=== PATIENT | male | born 1980 ===

== ENCOUNTER 2021-07-04 01:00 | Inpatient (IN) | payer OTHER, SELFPAY ==
[2021-07-04] MEDS ORDERED: IPRATROPIUM/ALBUTEROL SULFATE 3 ML AMPUL.NEB IH ONE (02:34)
[2021-07-04] MEDS ORDERED: SODIUM CHLORIDE 0.9% 1000 ML 1,000 ML IV ONE ×2 (02:34→02:35)
[2021-07-04] MEDS ORDERED: dexAMETHasone 20 MG/5 ML VIAL IV ONE ×2 (02:35→05:00)
--- NOTE | 2021-07-04 02:38 | Event Note ---
ED Screening Note Date of service: 07/04/21 Time: 02:35 ED Screening Note: Patient is a 40-year-old male with no past medical history and who was recently diagnosed with COVID-19 viral infection a week ago presents to the ED with complaint of acute onset persistent shortness of breath on exertion, persistent dry cough, intermittent fever of up to 103 F, chills, lack of appetite, body aches and pains, and generalized fatigue and weakness for the last 1 week. Patient states that in the last 2 days his shortness of breath is worsened such that even with walking from his bed to the toilet worsen his symptoms. Patient states that his own 20-year-old daughter has been admitted to this hospital in the last few days with COVID-19 viral infection. Patient denies dizziness, syncope, seizures, abdominal pain, nausea, vomiting, diarrhea,, dysuria, urinary frequency and urgency, dysuria, testicular pain or hematuria. This initial assessment/diagnostic orders/clinical plan/treatment(s) is/are subject to change based on patients health status, clinical progression and re-assessment by fellow clinical providers in the ED. Further treatment and workup at subsequent clinical providers discretion. Patient/guardian urged not to elope from the ED as their condition may be serious if not clinically assessed and managed. Initial orders include: CBC, CMP, blood cultures, lactic acid, chest x-ray,
[2021-07-04 03:23] LABS: Basophils # (Auto) 0.1 K/mm3 (0.0-0.1); Basophils % (Auto) 0.5 % (0.0-1.8); Hematocrit 41.2 % (35.5-45.6); Hemoglobin 14.5 gm/dl (11.8-15.2); Lymphocytes # (Auto) 0.8 K/mm3 (1.2-5.4); Mean Corpuscular HGB Conc 35 % (32-34); Mean Corpuscular Volume 91 fl (84-94); Monocytes # (Auto) 0.5 K/mm3 (0.0-0.8); Monocytes % (Auto) 5.1 % (0.0-7.3); Platelet Count 253 K/mm3 (140-440); Red Blood Count 4.54 M/mm3 (3.65-5.03); Red Cell Distribution Width 13.1 % (13.2-15.2)
[2021-07-04] MEDS ORDERED: SODIUM CHLORIDE 0.9% 500 ML 500 ML IV NR (03:26)
--- NOTE | 2021-07-04 03:28 | Emergency Department Report ---
ED General Adult HPI - General Chief complaint: Upper Respiratory Infection Stated complaint: FEVER/SOB PUI?: Yes Time Seen by Provider: 07/04/21 03:01 Source: patient, RN notes reviewed Mode of arrival: Ambulatory Limitations: Physical Limitation - History of Present Illness Initial comments: The patient was evaluated in the emergency department for symptoms described in the history of present illness. He/she was evaluated in the context of the global COVID-19 pandemic, which necessitated consideration that the patient gatito ht be at risk for infection with the virus that causes COVID-19. Institutional protocols and algorithms that pertain to the evaluation of patients at risk for COVID-19 are in a state of rapid change based on information released by regulatory bodies including the CDC and federal and state organizations. These policies and algorithms were followed during the patient's care in the emergency department. Please note that these policies, procedures and recommendations changed on a rapid basis. During the entire history and physical examination, I had on complete personal protective equipment. The patient is a 40-year-old gentleman, who denies significant past medical history, reports positive outpatient Covid test within the past week, not vaccinated against COVID-19, who presents to the ER on day 7/8 of typical Covid symptoms. He complains of headache, shortness of breath, chest tightness, diarrhea, weakness, malaise, fatigue, loss of taste and smell. -: Gradual, days(s) Location: head, chest, back, left, right, upper extremity, lower extremity Quality: aching Consistency: constant Improves with: none Worsens with: movement - Related Data Allergies Allergy/AdvReac Type Severity Reaction Status Date / Time No Known Allergies Allergy Verified 07/04/21 05:06 ED Review of Systems ROS: Stated complaint: FEVER/SOB Other details as noted in HPI Constitutional: fever, malaise, weakness Eyes: denies: eye discharge ENT: congestion Respiratory: cough, shortness of breath Cardiovascular: denies: syncope Gastrointestinal: diarrhea. denies: abdominal pain Genitourinary: denies: dysuria Musculoskeletal: arthralgia, myalgia Neurological: headache, weakness Hematological/Lymphatic: denies: easy bleeding ED Physical Exam - General Limitations: Physical Limitation General appearance: alert, anxious - Head Head exam: Present: atraumatic, normocephalic - Eye Eye exam: Present: normal appearance, EOMI. Absent: nystagmus - ENT ENT exam: Present: normal exam, normal orophraynx, mucous membranes moist, normal external ear exam - Neck Neck exam: Present: normal inspection, full ROM. Absent: tenderness, meningismus - Respiratory Respiratory exam: Present: respiratory distress, accessory muscle use, other (Pulmonary auscultation not performed secondary to lack of disposable stethoscope). Absent: stridor - Cardiovascular Cardiovascular Exam: Present: tachycardia (Appreciated on pulse examination), other (Cardiac auscultation not performed secondary to lack of disposable stethoscope) - GI/Abdominal GI/Abdominal exam: Present: soft. Absent: distended, tenderness, guarding, rebound, rigid, pulsatile mass - Rectal Rectal exam: Present: deferred - Extremities Exam Extremities exam: Present: normal inspection, full ROM, other (2+ pulses noted in the bilateral upper and lower extremities. There is no palpable cord. negative Homans sign. Muscular compartments are soft. The pelvis is stable.). Absent: pedal edema, calf tenderness - Back Exam Back exam: Present: normal inspection, full ROM. Absent: tenderness, CVA tenderness (R), CVA tenderness (L), paraspinal tenderness, vertebral tenderness - Neurological Exam Neurological exam: Present: alert, oriented X3, other (No facial droop. Tongue midline. Extraocular movements intact bilaterally. Facial sensation intact to light touch in V1, V2, V3 distribution bilaterally. 5 and a 5 strength in 4 extremities. Sensation intact to light touch in 4 extremities.). Absent: motor sensory deficit - Psychiatric Psychiatric exam: Present: anxious - Skin Skin exam: Present: warm, dry, intact, normal color. Absent: rash ED Course Vital Signs 07/04/21 07/04/21 02:25 05:15 Temperature 103.2 F H Pulse Rate 124 H 114 H Respiratory 18 26 H Rate Blood Pressure 117/75 124/84 O2 Sat by Pulse 85 94 Oximetry ED Medical Decision Making - Lab Data Result diagrams: 07/04/21 03:02 07/04/21 03:33 Vital Signs 07/04/21 02:25 Temperature 103.2 F H Pulse Rate 124 H Respiratory 18 Rate Blood Pressure 117/75 O2 Sat by Pulse 85 Oximetry Lab Results 07/04/21 07/04/21 Range/Units 03:01 03:02 WBC 10.6 (4.5-11.0) K/mm3 RBC 4.54 (3.65-5.03) M/mm3 Hgb 14.5 (11.8-15.2) gm/dl Hct 41.2 (35.5-45.6) % MCV 91 (84-94) fl MCH 32 (28-32) pg MCHC 35 H (32-34) % RDW 13.1 L (13.2-15.2) % Plt Count 253 (140-440) K/mm3 Lymph % (Auto) 8.0 L (13.4-35.0) % [place] % (Auto) 5.1 (0.0-7.3) % Eos % (Auto) 0.0 (0.0-4.3) % Baso % (Auto) 0.5 (0.0-1.8) % Lymph # (Auto) 0.8 L (1.2-5.4) K/mm3 [place] # (Auto) 0.5 (0.0-0.8) K/mm3 Eos # (Auto) 0.0 (0.0-0.4) K/mm3 Baso # (Auto) 0.1 (0.0-0.1) K/mm3 Seg Neutrophils % 86.4 H (40.0-70.0) % Seg Neutrophils # 9.1 H (1.8-7.7) K/mm3 Lactic Acid 1.70 (0.7-2.0) mmol/L Lab Results 07/04/21 07/04/21 07/04/21 Range/Units 03:01 03:01 03:02 WBC 10.6 (4.5-11.0) K/mm3 RBC 4.54 (3.65-5.03) M/mm3 Hgb 14.5 (11.8-15.2) gm/dl Hct 41.2 (35.5-45.6) % MCV 91 (84-94) fl MCH 32 (28-32) pg MCHC 35 H (32-34) % RDW 13.1 L (13.2-15.2) % Plt Count 253 (140-440) K/mm3 Lymph % (Auto) 8.0 L (13.4-35.0) % [place] % (Auto) 5.1 (0.0-7.3) % Eos % (Auto) 0.0 (0.0-4.3) % Baso % (Auto) 0.5 (0.0-1.8) % Lymph # (Auto) 0.8 L (1.2-5.4) K/mm3 [place] # (Auto) 0.5 (0.0-0.8) K/mm3 Eos # (Auto) 0.0 (0.0-0.4) K/mm3 Baso # (Auto) 0.1 (0.0-0.1) K/mm3 Seg Neutrophils % 86.4 H (40.0-70.0) % Seg Neutrophils # 9.1 H (1.8-7.7) K/mm3 Sodium 134 L (137-145) mmol/L Potassium 3.3 L (3.6-5.0) mmol/L Chloride 94.9 L (98-107) mmol/L Carbon Dioxide 24 (22-30) mmol/L Anion Gap 18 mmol/L BUN 16 (9-20) mg/dL Creatinine 1.1 (0.8-1.3) mg/dL Estimated GFR > 60 ml/min BUN/Creatinine Ratio 15 % Glucose 167 H (75-100) mg/dL Lactic Acid 1.70 (0.7-2.0) mmol/L Calcium 8.6 (8.4-10.2) mg/dL Total Bilirubin 0.70 (0.1-1.2) mg/dL AST 70 H (5-40) units/L ALT 54 (7-56) units/L Alkaline Phosphatase 73 (35-129) units/L Total Protein 7.7 (6.3-8.2) g/dL Albumin 3.6 L (3.9-5) g/dL Albumin/Globulin Ratio 0.9 % Lab Results 07/04/21 07/04/21 07/04/21 Range/Units 03:01 03:01 03:02 WBC 10.6 (4.5-11.0) K/mm3 RBC 4.54 (3.65-5.03) M/mm3 Hgb 14.5 (11.8-15.2) gm/dl Hct 41.2 (35.5-45.6) % MCV 91 (84-94) fl MCH 32 (28-32) pg MCHC 35 H (32-34) % RDW 13.1 L (13.2-15.2) % Plt Count 253 (140-440) K/mm3 Lymph % (Auto) 8.0 L (13.4-35.0) % [place] % (Auto) 5.1 (0.0-7.3) % Eos % (Auto) 0.0 (0.0-4.3) % Baso % (Auto) 0.5 (0.0-1.8) % Lymph # (Auto) 0.8 L (1.2-5.4) K/mm3 [place] # (Auto) 0.5 (0.0-0.8) K/mm3 Eos # (Auto) 0.0 (0.0-0.4) K/mm3 Baso # (Auto) 0.1 (0.0-0.1) K/mm3 Seg Neutrophils % 86.4 H (40.0-70.0) % Seg Neutrophils # 9.1 H (1.8-7.7) K/mm3 D-Dimer (0-234) ng/mlDDU Sodium 134 L (137-145) mmol/L Potassium 3.3 L (3.6-5.0) mmol/L Chloride 94.9 L (98-107) mmol/L Carbon Dioxide 24 (22-30) mmol/L Anion Gap 18 mmol/L BUN 16 (9-20) mg/dL Creatinine 1.1 (0.8-1.3) mg/dL Estimated GFR > 60 ml/min BUN/Creatinine Ratio 15 % Glucose 167 H (75-100) mg/dL Lactic Acid 1.70 (0.7-2.0) mmol/L Calcium 8.6 (8.4-10.2) mg/dL Ferritin (30.0-300.0) ng/mL Total Bilirubin 0.70 (0.1-1.2) mg/dL AST 70 H (5-40) units/L ALT 54 (7-56) units/L Alkaline Phosphatase 73 (35-129) units/L Lactate Dehydrogenase (91-180) units/L Total Creatine Kinase (55-170) units/L Troponin T (0.00-0.029) ng/mL C-Reactive Protein (0.00-1.30) mg/dL Total Protein 7.7 (6.3-8.2) g/dL Albumin 3.6 L (3.9-5) g/dL Albumin/Globulin Ratio 0.9 % 07/04/21 07/04/21 07/04/21 Range/Units 03:33 03:33 03:33 WBC (4.5-11.0) K/mm3 RBC (3.65-5.03) M/mm3 Hgb (11.8-15.2) gm/dl Hct (35.5-45.6) % MCV (84-94) fl MCH (28-32) pg MCHC (32-34) % RDW (13.2-15.2) % Plt Count (140-440) K/mm3 Lymph % (Auto) (13.4-35.0) % [place] % (Auto) (0.0-7.3) % Eos % (Auto) (0.0-4.3) % Baso % (Auto) (0.0-1.8) % Lymph # (Auto) (1.2-5.4) K/mm3 [place] # (Auto) (0.0-0.8) K/mm3 Eos # (Auto) (0.0-0.4) K/mm3 Baso # (Auto) (0.0-0.1) K/mm3 Seg Neutrophils % (40.0-70.0) % Seg Neutrophils # (1.8-7.7) K/mm3 D-Dimer 786.71 H (0-234) ng/mlDDU Sodium (137-145) mmol/L Potassium (3.6-5.0) mmol/L Chloride (98-107) mmol/L Carbon Dioxide (22-30) mmol/L Anion Gap mmol/L BUN (9-20) mg/dL Creatinine (0.8-1.3) mg/dL Estimated GFR ml/min BUN/Creatinine Ratio % Glucose 156 H (75-100) mg/dL Lactic Acid (0.7-2.0) mmol/L Calcium (8.4-10.2) mg/dL Ferritin 2452.0 H (30.0-300.0) ng/mL Total Bilirubin (0.1-1.2) mg/dL AST (5-40) units/L ALT (7-56) units/L Alkaline Phosphatase (35-129) units/L Lactate Dehydrogenase 759 H (91-180) units/L Total Creatine Kinase 194 H (55-170) units/L Troponin T < 0.010 (0.00-0.029) ng/mL C-Reactive Protein 24.40 H (0.00-1.30) mg/dL Total Protein (6.3-8.2) g/dL Albumin (3.9-5) g/dL Albumin/Globulin Ratio % - EKG Data -: EKG Interpreted by Sc EKG shows normal: sinus rhythm Rate: tachycardia - EKG Data 07/04/21 04:11 The EKG is interpreted at 04: 04 Sinus rhythm, tachycardia, rate 119 bpm. Normal axis. Normal P wave axis. High left ventricular voltage. QTC within normal limits. This is an abnormal EKG. This is not a STEMI. - Radiology Data Radiology results: pending, report reviewed, image reviewed [facility] [address] [place] [address] XRay Report Signed Patient: STORM WEBB MR#: [id number] : 1980 Acct:[id number] Age/Sex: 40 / M ADM Date: 07/04/21 Loc: ED Attending Dr: Ordering Physician: BIBIANA BURKS Date of Service: 07/04/21 Procedure(s): XR chest routine 2V Accession Number(s): [id number] cc: BIBIANA BURKS Fluoro Time In Minutes: CHEST 2 VIEWS INDICATION / CLINICAL INFORMATION: dyspnea, cough, Covid positive, chest pain STUDY TIME: 0311 COMPARISON: None available. FINDINGS: SUPPORT DEVICES: None. HEART / MEDIASTINUM: No significant abnormality. LUNGS / PLEURA: Moderate patchy bilateral interstitial infiltrates suggesting patchy bilateral pneumonitis. No pleural effusions are seen. No pneumothorax. ADDITIONAL FINDINGS: No significant additional findings. Signer Name: Beni Longo MD Signed: 07/04/2021 3:28 AM Workstation Name: [id number] Transcribed By: GJ Dictated By: Beni Longo MD Electronically Authenticated By: Beni Longo MD Signed Date/Time: 07/04/21327 DD/ 6 - Medical Decision Making Differential diagnosis, including but not limited to: COVID-19, hypoxic respiratory failure, Covid vaccination series not completed Assessment and plan: 40-year-old gentleman, with known history of COVID-19, presenting with systemic inflammatory response syndrome, and acute hypoxic respiratory failure. This patient meets criteria for admission hospitalization secondary to acute hypoxic respiratory failure. Place patient on isolation, supplemental oxygen, and start steroids. Cover empirically with antibiotics, and order appropriate inpatient and Covid laboratory studies. Start 500 cc of normal saline, we appreciate that the patient rules in for systemic inflammatory response syndrome. Given propensity for Covid patients to develop acute respiratory distress syndrome with aggressive fluid resuscitation, we will not administer 30 cc/kg bolus of IV fluid. Discussed recommendation with patient for plan to admit him to the medical service. He is agreeable to admission. All questions answered. Hospital physician, Dr. Obando to admit to [facility] Critical Care Time: Yes Critical care time in (mins) excluding proc time.: 35 Critical care attestation.: If time is entered above; I have spent that time in minutes in the direct care o f this critically ill patient, excluding procedure time. ED Disposition Clinical Impression: Acute respiratory failure with hypoxia, Systemic inflammatory response syndrome (SIRS), COVID-19, COVID-19 vaccination not done Disposition: ADMITTED INPATIENT Is pt being admited?: Yes Does the pt Need Aspirin: No Condition: Fair
--- NOTE | 2021-07-04 03:32 | XRay Report ---
CHEST 2 VIEWS INDICATION / CLINICAL INFORMATION: dyspnea, cough, Covid positive, chest pain STUDY TIME: 031 COMPARISON: None available. FINDINGS: SUPPORT DEVICES: None. HEART / MEDIASTINUM: No significant abnormality. LUNGS / PLEURA: Moderate patchy bilateral interstitial infiltrates suggesting patchy bilateral pneumo nitis. No pleural effusions are seen. No pneumothorax. ADDITIONAL FINDINGS: No significant additional findings. Signer Name: Beni Longo MD Signed: 07/04/2021 3:28 AM Workstation Name: [id number]
[2021-07-04 03:56] LABS: Alanine Aminotransferase 54 units/L (7-56); Albumin 3.6 g/dL (3.9-5); BUN/Creatinine Ratio 15; Blood Urea Nitrogen 16 mg/dL (9-20); Calcium 8.6 mg/dL (8.4-10.2); Hemolysis Index 1
[2021-07-04] MEDS ORDERED: POTASSIUM CHLORIDE ER 20 MEQ TAB PO NR (03:59)
--- NOTE | 2021-07-04 04:08 | History and Physical Report ---
History of Present Illness Date of examination: 07/04/21 Date of admission: 07/04/21 Chief complaint: shortness of breath History of present illness: This is a 40-year-old male with no past medical history and who was recently diagnosed with COVID-19 viral infection a week ago presents to the ED with complaint of acute onset persistent shortness of breath on exertion, persistent dry cough, intermittent fever of up to 103 F, chills, lack of appetite, body aches and pains, and generalized fatigue and weakness for the last 1 week. Patient states that in the last 2 days his shortness of breath is worsened such that even with walking from his bed to the toilet worsen his symptoms. Checks x-ray done and it showed pneumonia. I reviewed patient medical record, lab work and vital signs. Patient has elevated D-dimer -CT of the chest has been orderedwe will follow-up with results. Past History Past Surgical History: No surgical history Social history: full code. denies: prescription drug abuse, IV drug use Family history: no significant family history Medications and Allergies Allergies Allergy/AdvReac Type Severity Reaction Status Date / Time No Known Allergies Allergy Verified 07/04/21 05:06 Active Meds: Active Medications Acetaminophen (Acetaminophen 500 Mg Tab) 1,000 mg PO ONCE ONE Stop: 07/04/21 02:35 Dexamethasone (Dexamethasone 20 Mg/5 Ml Vial) 6 mg IV ONCE ONE Stop: 07/04/21 02:36 Sodium Chloride (Nacl 0.9% 500 Ml) 500 mls @ 999 mls/hr IV ONCE ONE Stop: 07/04/21 03:56 Azithromycin (Zithromax/Ns) 500 mg in 250 mls @ 250 mls/hr IV ONCE ONE; Protocol Stop: 07/04/21 04:26 Ceftriaxone Sodium (Rocephin/Ns 1 Gm/50 Ml) 1 gm in 50 mls @ 100 mls/hr IV ONCE ONE; Protocol Stop: 07/04/21 03:56 Review of Systems Ears, nose, mouth and throat: no epistaxis, no bleeding gums Cardiovascular: shortness of breath, dyspnea on exertion Respiratory: cough, cough with sputum, congestion, pleurisy, pain Gastrointestinal: no melena Rectal: no hemorrhoids Musculoskeletal: muscle weakness, myalgias Integumentary: no rash, no pruritis, no redness Psychiatric: anxiety Hematologic/Lymphatic: no easy bruising, no easy bleeding Allergic/Immunologic: no urticaria Exam - Constitutional Vitals: Temp Pulse Resp BP Pulse Ox 103.2 F H 124 H 18 117/75 85 07/04/21 02:25 07/04/21 02:25 07/04/21 02:25 07/04/21 02:25 07/04/21 02:25 Results - Labs CBC & Chem 7: 07/04/21 03:02 07/04/21 03:33 Labs: Abnormal lab results 07/04/21 Range/Units 03:02 MCHC 35 H (32-34) % RDW 13.1 L (13.2-15.2) % Lymph % (Auto) 8.0 L (13.4-35.0) % Lymph # (Auto) 0.8 L (1.2-5.4) K/mm3 Seg Neutrophils % 86.4 H (40.0-70.0) % Seg Neutrophils # 9.1 H (1.8-7.7) K/mm3 Assessment and Plan - Patient Problems (1) COVID-19 virus infection Current Visit: No Status: Acute Plan to address problem: airborne and contact isolation per covid protocol Monitor inflammatory maker Chest x-ray -showed pneumonia Empiric abx therapy azithromycin and Rocephin Check procalcitonin oxygen supplement if needed Ascorbic acid, zinc sulphate and vitamin D-when tolerating oral intake Encourage the use of incentive spirometer and prone position (2) Bilateral pneumonia Current Visit: No Status: Acute Plan to address problem: Continue empiric antibiotics ABG and serial chest x-ray (3) Hyponatremia Current Visit: No Status: Acute Plan to address problem: Continue IV hydration with normal saline Monitor sodium level (4) Hypokalemia Current Visit: No Status: Acute Plan to address problem: Replace potassium Monitor electrolytes (5) Elevated d-dimer Current Visit: Yes Status: Acute Plan to address problem: D-dimer 786.[address] rule out pulmonary embolism (6) DVT prophylaxis Current Visit: No Status: Acute Plan to address problem: Lovenox subcutaneous
[2021-07-04] MEDS ORDERED: NALOXONE 0.4 MG/1 ML INJ IV PRN (04:11)
[2021-07-04] MEDS ORDERED: MORPHINE 4 MG/1 ML INJ IV PRN (04:11)
[2021-07-04] MEDS ORDERED: ONDANSETRON 4 MG/2 ML INJ IV PRN (04:11)
[2021-07-04] MEDS ORDERED: ALUM-MAG HYDROXIDE-SIMETHICONE 200-200-20MG/5ML ORAL LIQD 30 ML PO PRN (04:11)
[2021-07-04] MEDS ORDERED: MORPHINE 2 MG/1 ML INJ IV PRN (04:11)
[2021-07-04] MEDS ORDERED: MAGNESIUM HYDROXIDE (MOM) ORAL LIQD UDC PO PRN (04:11)
[2021-07-04] MEDS ORDERED: oxyCODONE /ACETAMINOPHEN 5-325MG TAB PO PRN (04:11)
[2021-07-04] MEDS ORDERED: SENNOSIDES 8.6 MG TAB PO PRN (04:11)
[2021-07-04] MEDS ORDERED: ACETAMINOPHEN 325 MG TAB PO PRN (04:11)
[2021-07-04] MEDS ORDERED: METOCLOPRAMIDE 10 MG/2 ML INJ IV PRN (04:11)
[2021-07-04] MEDS ORDERED: ACETAMINOPHEN 500 MG TAB PO ONE (05:00)
[2021-07-04] MEDS ORDERED: cefTRIAXone/NS 1 GM/50 ML 1 GM/50 ML BAG IV ONE (05:00)
[2021-07-04] MEDS ORDERED: AZITHROMYCIN/NS 500 MG/250 ML 500 MG/250 ML BAG IV ONE (05:00)
[2021-07-04] MEDS: SODIUM CHLORIDE 0.9% 1000 ML 1,000 ML IV SCH (06:05)
--- NOTE | 2021-07-04 08:38 | Cat Scan Report ---
CTA CHEST WITH CONTRAST INDICATION / CLINICAL INFORMATION: Rule out pulmonary embolism COVID PT OMNIPAQUE 350 100ML. Dyspn ea and cough. Chest pain. TECHNIQUE: Axial CT images were obtained through the chest after injection of IV contrast. 3 plane AZ P and/or 3D reconstructions were produced. All CT scans at this location are performed using CT dose reduction for ALARA by means of automated exposure control. COMPARISON: Chest radiograph earlier on the same date. FINDINGS: PULMONARY ARTERIES: No pulmonary emboli. THORACIC AORTA: No significant abnormality. HEART: No significant abnormality. CORONARY ARTERY CALCIFICATION: None. MEDIASTINUM / ALEX: No significant abnormality. PLEURA: No pleural effusion. No pneumothorax. LUNGS: Extensive bilateral patchy pulmonary opacities some of which have groundglass density. ADDITIONAL FINDINGS: None. UPPER ABDOMEN: Liver is enlarged and hypodense characteristic of fatty infiltration. SKELETAL STRUCTURES: No significant osseous abnormality. IMPRESSION: 1. No CT evidence for pulmonary embolism. 2. Extensive bilateral pneumonia characteristic of atypical/viral pneumonia such as Covid. 3. Hepatic steatosis. Signer Name: Luke Lawrence MD Signed: 07/04/2021 8:34 AM Workstation Name: [id number]
[2021-07-04 09:00] LABS: BUN/Creatinine Ratio 15; Blood Urea Nitrogen 15 mg/dL (9-20); Calcium 7.7 mg/dL (8.4-10.2); Hemolysis Index 7
[2021-07-04] MEDS: CHOLECALCIFEROL (VIT D3) 1000 UNIT (25 mcg) TAB PO SCH (09:44)
[2021-07-04] MEDS: ZINC SULFATE 220 MG CAP PO SCH (09:44)
[2021-07-04] MEDS: ENOXAPARIN 40 MG/0.4 ML INJ SUB-Q SCH (09:44)
[2021-07-04] MEDS: ASCORBIC ACID 500 MG TAB PO SCH (09:44)
--- NOTE | 2021-07-04 11:39 | Event Note ---
Date: 07/04/21 Patient was admitted earlier this morning for the management of Covid pneumonia with hypoxia. Patient was on 6 L of oxygen. CTA was done and showed extensive bilateral pneumonia but no PE. Patient is on Decadron and will need remdesivir if Covid test is positive. ID consulted.
[2021-07-05] MEDS: AZITHROMYCIN/NS 500 MG/250 ML 500 MG/250 ML BAG IV SCH (05:24)
[2021-07-05] MEDS: cefTRIAXone/NS 1 GM/50 ML 1 GM/50 ML BAG IV SCH (05:25)
[2021-07-05] MEDS: SODIUM CHLORIDE 0.9% 1000 ML 1,000 ML IV SCH (05:30)
[2021-07-05 06:23] LABS: Hemoglobin 14.2 gm/dl (11.8-15.2); Mean Corpuscular HGB Conc 35 % (32-34); Mean Corpuscular Volume 90 fl (84-94); Platelet Count 306 K/mm3 (140-440); Red Blood Count 4.54 M/mm3 (3.65-5.03); Red Cell Distribution Width 13.8 % (13.2-15.2)
[2021-07-05 07:53] LABS: Alanine Aminotransferase 42 units/L (7-56); Albumin 3.1 g/dL (3.9-5); Blood Urea Nitrogen 16 mg/dL (9-20); Calcium 8.6 mg/dL (8.4-10.2); Hemolysis Index 9
[2021-07-05 07:59] LABS: BUN/Creatinine Ratio 23
[2021-07-05] MEDS ORDERED: dexAMETHasone 4 MG/ML VIAL IV SCH (10:00)
--- NOTE | 2021-07-05 10:29 | Progress Note ---
Assessment and Plan Assessment and plan: This is a 40-year-old male with no past medical history and who was recently diagnosed with COVID-19 viral infection a week ago presents to the ED with complaint of acute onset persistent shortness of breath on exertion, persistent dry cough, intermittent fever of up to 103 F, chills, lack of a ppetite, body aches and pains, and generalized fatigue and weakness for the last 1 week. Patient states that in the last 2 days his shortness of breath is worsened such that even with walking from his bed to the toilet worsen his symptoms. Checks x-ray done and it showed pneumonia. I reviewed patient medical record, lab work and vital signs. Patient has elevated D-dimer -CT of the chest has been orderedwe will follow-up with results. (1) COVID-19 virus infection Current Visit: No Status: Acute Plan to address problem: airborne and contact isolation per covid protocol Monitor inflammatory maker Chest x-ray -showed pneumonia Empiric abx therapy azithromycin and Rocephin Check procalcitonin oxygen supplement if needed Ascorbic acid, zinc sulphate and vitamin D-when tolerating oral intake Encourage the use of incentive spirometer and prone position (2) Bilateral pneumonia Current Visit: No Status: Acute Plan to address problem: Continue empiric antibiotics ABG and serial chest x-ray (3) Hyponatremia Current Visit: No Status: Acute Plan to address problem: Continue IV hydration with normal saline Monitor sodium level (4) Hypokalemia Current Visit: No Status: Acute Plan to address problem: Replace potassium Monitor electrolytes (5) Elevated d-dimer Current Visit: Yes Status: Acute Plan to address problem: D-dimer 786.[address] rule out pulmonary embolism (6) DVT prophylaxis Current Visit: No Status: Acute Plan to address problem: Lovenox subcutaneous 07/05: Patient seen and examined still with shortness of breath ID input is noted IV/PO Dexamethasone x 10 days, IV remdesivir x 5 days, ordered for management of COVID-19. Continue oxygen and wean as tolerated will consult pulmonary for assistance. Encourage prone positioning. Monitor inflammatory markers co ndition is guarded. Will reevaluate tomorrow and possible trial of Lasix therapy. In addition to IDs recommendation "if hypoxia worsens to requiring HFNC >30 L/min, given CRP >7.5, would be candidate for Actemra (depending on availability)" CT CHEST: IMPRESSION: 1. No CT evidence for pulmonary embolism. 2. Extensive bilateral pneumonia characteristic of atypical/viral pneumonia such as Covid. 3. Hepatic steatosis. History Interval history: Patient seen and examined still with shortness of breath and cough. Encouraged to prone which he is receptive for. Discussed test findings of results so far. Hospitalist Physical - Physical exam Narrative exam: VITAL SIGNS: Reviewed. GENERAL: The patient appears normally developed, obese, vital signs as documented. HEAD: No signs of head trauma. EYES: Pupils are equal. Extraocular motions intact. EARS: Hearing grossly intact. MOUTH: Oropharynx is normal. NECK: No adenopathy, no JVD. CHEST: Chest with diminished breath sounds bilaterally. No wheezes, rales, or rhonchi. CARDIAC: Regular rate and rhythm. S1 and S2, without murmurs, gallops, or rubs. VASCULAR: No Edema. Peripheral pulses normal and equal in all extremities. ABDOMEN: Soft, non tender and non distended. No rebound or guarding, and no masses palpated. Bowel Sounds normal. MUSCULOSKELETAL: Good range of motion of all major joints. Extremities without clubbing, cyanosis or edema. NEUROLOGIC EXAM: Alert and oriented x 3 No focal sensory or strength deficits. Speech normal. Follows commands. PSYCHIATRIC: Mood normal. SKIN: detail exam as documented in skin assessment - Constitutional Vitals: Temp Pulse Resp BP Pulse Ox 97.6 F 106 H 20 119/77 95 07/04/21 21:50 07/04/21 21:50 07/04/21 22:00 07/04/21 21:50 07/04/21 22:00 HEART Score - HEART Score Troponin: Troponin T < 0.010 ng/mL (0.00-0.029) 07/04/21 03:33 Results - Labs CBC & Chem 7: 07/05/21 05:24 07/05/21 05:24 Labs: Laboratory Last Values WBC 14.6 K/mm3 (4.5-11.0) H 07/05/21 05:24 RBC 4.54 M/mm3 (3.65-5.03) 07/05/21 05:24 Hgb 14.2 gm/dl (11.8-15.2) 07/05/21 05:24 Hct 41.0 % (35.5-45.6) 07/05/21 05:24 MCV 90 fl (84-94) 07/05/21 05:24 MCH 31 pg (28-32) 07/05/21 05:24 MCHC 35 % (32-34) H 07/05/21 05:24 RDW 13.8 % (13.2-15.2) 07/05/21 05:24 Plt Count 306 K/mm3 (140-440) 07/05/21 05:24 Lymph % (Auto) 8.0 % (13.4-35.0) L 07/04/21 03:02 [place] % (Auto) 5.1 % (0.0-7.3) 07/04/21 03:02 Eos % (Auto) 0.0 % (0.0-4.3) 07/04/21 03:02 Baso % (Auto) 0.5 % (0.0-1.8) 07/04/21 03:02 Lymph # (Auto) 0.8 K/mm3 (1.2-5.4) L 07/04/21 03:02 [place] # (Auto) 0.5 K/mm3 (0.0-0.8) 07/04/21 03:02 Eos # (Auto) 0.0 K/mm3 (0.0-0.4) 07/04/21 03:02 Baso # (Auto) 0.1 K/mm3 (0.0-0.1) 07/04/21 03:02 Seg Neutrophils % 86.4 % (40.0-70.0) H 07/04/21 03:02 Seg Neutrophils # 9.1 K/mm3 (1.8-7.7) H 07/04/21 03:02 D-Dimer 786.71 ng/mlDDU (0-234) H 07/04/21 03:33 Sodium 138 mmol/L (137-145) D 07/05/21 05:24 Potassium 4.0 mmol/L (3.6-5.0) 07/05/21 05:24 Chloride 101.3 mmol/L (98-107) 07/05/21 05:24 Carbon Dioxide 27 mmol/L (22-30) 07/05/21 05:24 Anion Gap 14 mmol/L 07/05/21 05:24 BUN 16 mg/dL (9-20) 07/05/21 05:24 Creatinine 0.7 mg/dL (0.8-1.3) L 07/05/21 05:24 Estimated GFR > 60 ml/min 07/05/21 05:24 BUN/Creatinine Ratio 23 % 07/05/21 05:24 Glucose 197 mg/dL (75-100) H 07/05/21 05:24 Hemoglobin A1c 7.3 % (4-6) H 07/04/21 08:29 Lactic Acid 1.70 mmol/L (0.7-2.0) 07/04/21 03:01 Calcium 8.6 mg/dL (8.4-10.2) 07/05/21 05:24 Ferritin 2452.0 ng/mL (30.0-300.0) H 07/04/21 03:33 Total Bilirubin 0.50 mg/dL (0.1-1.2) 07/05/21 05:24 AST 51 units/L (5-40) H 07/05/21 05:24 ALT 42 units/L (7-56) 07/05/21 05:24 Alkaline Phosphatase 66 units/L (35-129) 07/05/21 05:24 Lactate Dehydrogenase 759 units/L (91-180) H 07/04/21 03:33 Total Creatine Kinase 194 units/L (55-170) H 07/04/21 03:33 Troponin T < 0.010 ng/mL (0.00-0.029) 07/04/21 03:33 C-Reactive Protein 24.40 mg/dL (0.00-1.30) H 07/04/21 03:33 Total Protein 7.2 g/dL (6.3-8.2) 07/05/21 05:24 Albumin 3.1 g/dL (3.9-5) L 07/05/21 05:24 Albumin/Globulin Ratio 0.8 % 07/05/21 05:24 Coronavirus (PCR) Positive (Negative) A 07/04/21 09:40 Microbiology: Microbiology 07/04/21 02:57 Peripheral/Venous Blood Culture - Preliminary NO GROWTH AFTER 24 HOURS 07/04/21 03:01 Peripheral/Venous Blood Culture - Preliminary NO GROWTH AFTER 24 HOURS [place]/IV: Voiding Method Urinal Active Medications - Current Medications Current Medications: Generic Name Dose Route Start Last Admin Trade Name Freq PRN Reason Stop Dose Admin Acetaminophen 650 mg 07/04/21 04:11 Acetaminophen 325 Mg Tab PO Q4H PRN Pain MILD(1-3)/Fever >100.5/[place] Al Hydrox/Mg Hydrox/Simethicone 30 ml 07/04/21 04:11 Alum-Mag Hydroxide-Simethicone [phone]/5ml Oral Liqd 30 Ml PO Q4H PRN Indigestion Ascorbic Acid 500 mg 07/04/21 10:00 07/04/21 09:44 Ascorbic Acid 500 Mg Tab PO 500 mg QDAY [place] Administration Cholecalciferol 1,000 unit 07/04/21 10:00 07/04/21 09:44 Cholecalciferol (Vit D3) 1000 Unit (25 Mcg) Tab PO 1,000 unit QDAY [place] Administration Dexamethasone 6 mg 07/05/21 10:00 Dexamethasone 4 Mg/Ml Vial IV 07/13/21 10:01 DAILY [place] Enoxaparin Sodium 40 mg 07/04/21 10:00 07/04/21 09:44 Enoxaparin 40 Mg/0.4 Ml Inj SUB-Q 40 mg QDAY [place] Administration Sodium Chloride 1,000 mls @ 100 mls/hr 07/04/21 04:15 07/05/21 05:30 Nacl 0.9% 1000 Ml IV 100 mls/hr DIRECT [place] Administration Azithromycin 500 mg in 250 mls @ 250 mls/hr 07/05/21 05:00 07/05/21 05:24 Zithromax/Ns IV 07/08/21 05:59 250 mls/hr Q24H [place] Administration Ceftriaxone Sodium 1 gm in 50 mls @ 100 mls/hr 07/05/21 05:00 07/05/21 05:25 Rocephin/Ns 1 Gm/50 Ml IV 07/08/21 05:29 100 mls/hr Q24H [place] Administration Protocol Magnesium Hydroxide 30 ml 07/04/21 04:11 Magnesium Hydroxide (Mom) Oral Liqd Udc PO Q4H PRN Constipation Metoclopramide HCl 10 mg 07/04/21 04:11 Metoclopramide 10 Mg/2 Ml Inj IV Q6H PRN Nausea And Vomiting Morphine Sulfate 2 mg 07/04/21 04:11 Morphine 2 Mg/1 Ml Inj IV Q4H PRN Pain, Moderate (4-6) Morphine Sulfate 4 mg 07/04/21 04:11 Morphine 4 Mg/1 Ml Inj IV Q4H PRN Pain , Severe (7-10) Naloxone HCl 0.1 mg 07/04/21 04:11 Naloxone 0.4 Mg/1 Ml Inj IV Q2MIN PRN Res Rate </= 8 or 02 SAT < 92% Ondansetron HCl 4 mg 07/04/21 04:11 Ondansetron 4 Mg/2 Ml Inj IV Q8H PRN Nausea And Vomiting Oxycodone/Acetaminophen 1 tab 07/04/21 04:11 Oxycodone /Acetaminophen 5-325mg Tab PO Q6H PRN Pain, Moderate (4-6) Senna 8.6 mg 07/04/21 04:11 Sennosides 8.6 Mg Tab PO Q12HR PRN Constipation Sodium Chloride 10 ml 07/04/21 10:00 07/04/21 23:18 Sodium Chloride 0.9% 10 Ml Flush Syringe IV 10 ml BID [place] Administration Zinc Sulfate 220 mg 07/04/21 10:00 07/04/21 09:44 Zinc Sulfate 220 Mg Cap PO 220 mg QDAY [place] Administration
--- NOTE | 2021-07-05 12:13 | Consultation ---
History of Present Illness - Reason for Consult Consult date: 07/05/21 COVID Requesting physician: ARPIT VILLALPANDO - History of Present Illness The patient is a 40-year-old male with no significant past medical history admitted with COVID-19 pneumonia and acute hypoxic respiratory failure. Chest x-ray showed pneumonia. Patient hypoxic requiring oxygen by nasal cannula. Labs reviewed, WBC 10.6 on admission, D-dimer 786, ferritin 2452, CRP 24.4, mild transaminitis. COVID-19 PCR is positive. Review of Systems: reviewed in the chart, unable to obtain, minimize risk of transmission Past History Past Surgical History: No surgical history Social history: full code. denies: prescription drug abuse, IV drug use Family history: no significant family history Medications and Allergies Allergies Allergy/AdvReac Type Severity Reaction Status Date / Time No Known Allergies Allergy Verified 07/04/21 05:06 Home Medications Medication Instructions Recorded Confirmed Last Taken Type No Known Home Medications [No 07/04/21 07/04/21 Unknown History Reported Home Medications] Active Meds: Active Medications Acetaminophen (Acetaminophen 325 Mg Tab) 650 mg PO Q4H PRN PRN Reason: Pain MILD(1-3)/Fever >100.5/[place] Al Hydrox/Mg Hydrox/Simethicone (Alum-Mag Hydroxide-Simethicone [phone]/5ml Oral Liqd 30 Ml) 30 ml PO Q4H PRN PRN Reason: Indigestion Ascorbic Acid (Ascorbic Acid 500 Mg Tab) 500 mg PO QDAY [facility] Last Admin: 07/04/21 09:44 Dose: 500 mg Documented by: Cholecalciferol (Cholecalciferol (Vit D3) 1000 Unit (25 Mcg) Tab) 1,000 unit PO QDAY [facility] Last Admin: 07/04/21 09:44 Dose: 1,000 unit Documented by: Dexamethasone (Dexamethasone 4 Mg/Ml Vial) 6 mg IV DAILY [facility] Stop: 07/13/21 10:01 Enoxaparin Sodium (Enoxaparin 40 Mg/0.4 Ml Inj) 40 mg SUB-Q QDAY [facility] Last Admin: 07/04/21 09:44 Dose: 40 mg Documented by: Sodium Chloride (Nacl 0.9% 1000 Ml) 1,000 mls @ 100 mls/hr IV DIRECT [facility] Last Admin: 07/05/21 05:30 Dose: 100 mls/hr Documented by: Azithromycin (Zithromax/Ns) 500 mg in 250 mls @ 250 mls/hr IV Q24H [facility] Stop: 07/08/21 05:59 Last Admin: 07/05/21 05:24 Dose: 250 mls/hr Documented by: Ceftriaxone Sodium (Rocephin/Ns 1 Gm/50 Ml) 1 gm in 50 mls @ 100 mls/hr IV Q24H [facility]; Protocol Stop: 07/08/21 05:29 Last Admin: 07/05/21 05:25 Dose: 100 mls/hr Documented by: Magnesium Hydroxide (Magnesium Hydroxide (Mom) Oral Liqd Udc) 30 ml PO Q4H PRN PRN Reason: Constipation Metoclopramide HCl (Metoclopramide 10 Mg/2 Ml Inj) 10 mg IV Q6H PRN PRN Reason: Nausea And Vomiting Morphine Sulfate (Morphine 2 Mg/1 Ml Inj) 2 mg IV Q4H PRN PRN Reason: Pain, Moderate (4-6) Morphine Sulfate (Morphine 4 Mg/1 Ml Inj) 4 mg IV Q4H PRN PRN Reason: Pain , Severe (7-10) Naloxone HCl (Naloxone 0.4 Mg/1 Ml Inj) 0.1 mg IV Q2MIN PRN PRN Reason: Res Rate </= 8 or 02 SAT < 92% Ondansetron HCl (Ondansetron 4 Mg/2 Ml Inj) 4 mg IV Q8H PRN PRN Reason: Nausea And Vomiting Oxycodone/Acetaminophen (Oxycodone /Acetaminophen 5-325mg Tab) 1 tab PO Q6H PRN PRN Reason: Pain, Moderate (4-6) Senna (Sennosides 8.6 Mg Tab) 8.6 mg PO Q12HR PRN PRN Reason: Constipation Sodium Chloride (Sodium Chloride 0.9% 10 Ml Flush Syringe) 10 ml IV BID [facility] Last Admin: 07/04/21 23:18 Dose: 10 ml Documented by: Zinc Sulfate (Zinc Sulfate 220 Mg Cap) 220 mg PO QDAY [facility] Last Admin: 07/04/21 09:44 Dose: 220 mg Documented by: Physical Examination - Physical Exam Narrative exam: Physical Exam (reviewed in chart to minimize risk of transmission) Constitutional: deferred Head, Ears, Nose: deferred Eyes: deferred Neck: deferred Oral: deferred Cardiovascular: deferred Respiratory: deferred GI: deferred Musculoskeletal: deferred Skin: deferred Hem/Lymphatic: deferred Psych: deferred Neurological: deferred - Constitutional Vitals: Vital Signs Temp Pulse Resp BP Pulse Ox 97.6 F 106 H 20 119/77 95 07/04/21 21:50 07/04/21 21:50 07/04/21 22:00 07/04/21 21:50 07/04/21 22:00 Temperature -Last 24 Hours Temperature 97.6 F Temperature 97.8 F Results - Labs CBC & Chem 7: 07/05/21 05:24 07/05/21 05:24 Labs: Abnormal lab results 07/04/21 07/05/21 07/05/21 Range/Units 09:40 05:24 05:24 WBC 14.6 H (4.5-11.0) K/mm3 MCHC 35 H (32-34) % Creatinine 0.7 L (0.8-1.3) mg/dL Glucose 197 H (75-100) mg/dL AST 51 H (5-40) units/L Albumin 3.1 L (3.9-5) g/dL Coronavirus (PCR) Positive A (Negative) - Imaging and Cardiology Chest x-ray: report reviewed, image reviewed (b/l PNA) Assessment and Plan Cultures: SARS CoV2 PCR: Positive 07/04/2021 blood culture: No growth A/P: 40/M with: #Bilateral pneumonia: secondary to COVID-19 #Acute hypoxic respiratory failure: Requiring nasal cannula. Recs: IV/PO Dexamethasone x 10 days IV remdesivir x 5 days, ordered if hypoxia worsens to requiring HFNC >30 L/min, given CRP >7.5, would be candidate for Actemra (depending on availability) prophylactic anticoagulation based on d-dimer per hospital protocol if procalcitonin is low, abx not needed trend ferritin, d-dimer, CRP every 2-3 days Kateyln Hernandez MD, FACP [facility] ([facility] O: [phone] F: [phone]
[2021-07-05] MEDS: ENOXAPARIN 40 MG/0.4 ML INJ SUB-Q SCH (12:45)
[2021-07-05] MEDS: CHOLECALCIFEROL (VIT D3) 1000 UNIT (25 mcg) TAB PO SCH (12:45)
[2021-07-05] MEDS: ASCORBIC ACID 500 MG TAB PO SCH (12:46)
[2021-07-05] MEDS: ZINC SULFATE 220 MG CAP PO SCH (12:46)
[2021-07-05 14:14] LABS: Alanine Aminotransferase 42 units/L (7-56); Albumin 2.9 g/dL (3.9-5); Blood Urea Nitrogen 16 mg/dL (9-20); Calcium 8.1 mg/dL (8.4-10.2); Hemolysis Index 107
[2021-07-05 14:23] LABS: BUN/Creatinine Ratio 27
[2021-07-05] MEDS ORDERED: REMDESIVIR 200 MG in SODIUM CHLORIDE 0.9% 250ML 250 ML IV ONE (14:30)
[2021-07-05 16:00] LABS: Band Neutrophils # (Manual) 0.7 K/mm3; Platelet Estimate Consistent w Auto; RBC Morphology Normal; Total Cells Counted 100
[2021-07-05] MEDS: SODIUM CHLORIDE 0.9% 50 ML IVPB IV SCH (21:36)
[2021-07-06] MEDS: cefTRIAXone/NS 1 GM/50 ML 1 GM/50 ML BAG IV SCH (05:33)
[2021-07-06] MEDS: AZITHROMYCIN/NS 500 MG/250 ML 500 MG/250 ML BAG IV SCH (06:40)
[2021-07-06 06:54] LABS: Alanine Aminotransferase 43 units/L (7-56); Albumin 2.8 g/dL (3.9-5); Blood Urea Nitrogen 17 mg/dL (9-20); Calcium 8.4 mg/dL (8.4-10.2); Hemolysis Index 2
[2021-07-06 07:13] LABS: BUN/Creatinine Ratio 24
--- NOTE | 2021-07-06 09:12 | Consultation ---
History of Present Illness Consult date: 07/06/21 Requesting physician: LYUBOV SIMONS Reason for consult: hypoxemia, other (COVID) History of present illness: 40 y/o male, obese, admitted with acute respiratory failure secondary to COVID pneumonia. Past History Past Surgical History: No surgical history Social history: full code. denies: prescription drug abuse, IV drug use Family history: no significant family history Medications and Allergies Allergies Allergy/AdvReac Type Severity Reaction Status Date / Time No Known Allergies Allergy Verified 07/04/21 05:06 Home Medications Medication Instructions Recorded Confirmed Last Taken Type No Known Home Medications [No 07/04/21 07/04/21 Unknown History Reported Home Medications] Active Meds: Active Medications Acetaminophen (Acetaminophen 325 Mg Tab) 650 mg PO Q4H PRN PRN Reason: Pain MILD(1-3)/Fever >100.5/[place] Al Hydrox/Mg Hydrox/Simethicone (Alum-Mag Hydroxide-Simethicone [phone]/5ml Oral Liqd 30 Ml) 30 ml PO Q4H PRN PRN Reason: Indigestion Ascorbic Acid (Ascorbic Acid 500 Mg Tab) 500 mg PO QDAY [facility] Last Admin: 07/05/21 12:46 Dose: 500 mg Documented by: Cholecalciferol (Cholecalciferol (Vit D3) 1000 Unit (25 Mcg) Tab) 1,000 unit PO QDAY [facility] Last Admin: 07/05/21 12:45 Dose: 1,000 unit Documented by: Dexamethasone (Dexamethasone 4 Mg/Ml Vial) 6 mg IV DAILY [facility] Stop: 07/13/21 10:01 Last Admin: 07/05/21 12:46 Dose: 6 mg Documented by: Enoxaparin Sodium (Enoxaparin 40 Mg/0.4 Ml Inj) 40 mg SUB-Q QDAY [facility] Last Admin: 07/05/21 12:45 Dose: 40 mg Documented by: Sodium Chloride (Nacl 0.9% 1000 Ml) 1,000 mls @ 100 mls/hr IV DIRECT [facility] Last Admin: 07/05/21 05:30 Dose: 100 mls/hr Documented by: Azithromycin (Zithromax/Ns) 500 mg in 250 mls @ 250 mls/hr IV Q24H [facility] Stop: 07/08/21 05:59 Last Admin: 07/06/21 06:40 Dose: 250 mls/hr Documented by: Ceftriaxone Sodium (Rocephin/Ns 1 Gm/50 Ml) 1 gm in 50 mls @ 100 mls/hr IV Q24H [facility]; Protocol Stop: 07/08/21 05:29 Last Admin: 07/06/21 05:33 Dose: 100 mls/hr Documented by: REMDESIVIR 100 mg/ Sodium (Chloride) 250 mls @ 500 mls/hr IV Q24HR@2100 [facility] Stop: 07/09/21 21:29 Magnesium Hydroxide (Magnesium Hydroxide (Mom) Oral Liqd Udc) 30 ml PO Q4H PRN PRN Reason: Constipation Metoclopramide HCl (Metoclopramide 10 Mg/2 Ml Inj) 10 mg IV Q6H PRN PRN Reason: Nausea And Vomiting Morphine Sulfate (Morphine 2 Mg/1 Ml Inj) 2 mg IV Q4H PRN PRN Reason: Pain, Moderate (4-6) Morphine Sulfate (Morphine 4 Mg/1 Ml Inj) 4 mg IV Q4H PRN PRN Reason: Pain , Severe (7-10) Naloxone HCl (Naloxone 0.4 Mg/1 Ml Inj) 0.1 mg IV Q2MIN PRN PRN Reason: Res Rate </= 8 or 02 SAT < 92% Ondansetron HCl (Ondansetron 4 Mg/2 Ml Inj) 4 mg IV Q8H PRN PRN Reason: Nausea And Vomiting Oxycodone/Acetaminophen (Oxycodone /Acetaminophen 5-325mg Tab) 1 tab PO Q6H PRN PRN Reason: Pain, Moderate (4-6) Senna (Sennosides 8.6 Mg Tab) 8.6 mg PO Q12HR PRN PRN Reason: Constipation Sodium Chloride (Sodium Chloride 0.9% 10 Ml Flush Syringe) 10 ml IV BID [facility] Last Admin: 07/05/21 21:37 Dose: 10 ml Documented by: Sodium Chloride (Sodium Chloride 0.9% 50 Ml Ivpb) 50 ml IV Q24HR@2100 [facility] Stop: 07/09/21 21:01 Last Admin: 07/05/21 21:36 Dose: 50 ml Documented by: Zinc Sulfate (Zinc Sulfate 220 Mg Cap) 220 mg PO QDAY [facility] Last Admin: 07/05/21 12:46 Dose: 220 mg Documented by: Physical Examination Vital signs: Vital Signs Temp Pulse Resp BP Pulse Ox 103.2 F H 124 H 18 117/75 85 07/04/21 02:25 07/04/21 02:25 07/04/21 02:25 07/04/21 02:25 07/04/21 02:25 Deferred Results - Laboratory Findings CBC and BMP: 07/05/21 05:24 07/06/21 05:35 PT/INR, D-dimer D-Dimer 786.71 ng/mlDDU (0-234) H 07/04/21 03:33 Abnormal lab findings: Abnormal Labs 07/04/21 07/04/21 07/04/21 03:01 03:02 03:33 WBC MCHC 35 H RDW 13.1 L Lymph % (Auto) 8.0 L Lymph # (Auto) 0.8 L Seg Neutrophils % 86.4 H Seg Neuts % (Manual) Lymphocytes % (Manual) Seg Neutrophils # 9.1 H Seg Neutrophils # Man D-Dimer 786.71 H Sodium 134 L Potassium 3.3 L Chloride 94.9 L Creatinine Glucose 167 H Hemoglobin A1c Calcium Ferritin AST 70 H Lactate Dehydrogenase Total Creatine Kinase C-Reactive Protein Albumin 3.6 L Coronavirus (PCR) 07/04/21 07/04/21 07/04/21 03:33 03:33 08:29 WBC MCHC RDW Lymph % (Auto) Lymph # (Auto) Seg Neutrophils % Seg Neuts % (Manual) Lymphocytes % (Manual) Seg Neutrophils # Seg Neutrophils # Man D-Dimer Sodium 131 L Potassium Chloride 96.0 L Creatinine Glucose 156 H 182 H Hemoglobin A1c Calcium 7.7 L Ferritin 2452.0 H AST Lactate Dehydrogenase 759 H Total Creatine Kinase 194 H C-Reactive Protein 24.40 H Albumin Coronavirus (PCR) 07/04/21 07/04/21 07/05/21 08:29 09:40 05:24 WBC 14.6 H MCHC 35 H RDW Lymph % (Auto) Lymph # (Auto) Seg Neutrophils % Seg Neuts % (Manual) 80.0 H Lymphocytes % (Manual) 10.0 L Seg Neutrophils # Seg Neutrophils # Man 11.7 H D-Dimer Sodium Potassium Chloride Creatinine Glucose Hemoglobin A1c 7.3 H Calcium Ferritin AST Lactate Dehydrogenase Total Creatine Kinase C-Reactive Protein Albumin Coronavirus (PCR) Positive A 07/05/21 07/05/21 07/06/21 05:24 13:31 05:35 WBC MCHC RDW Lymph % (Auto) Lymph # (Auto) Seg Neutrophils % Seg Neuts % (Manual) Lymphocytes % (Manual) Seg Neutrophils # Seg Neutrophils # Man D-Dimer Sodium Potassium Chloride Creatinine 0.7 L 0.6 L 0.7 L Glucose 197 H 190 H 195 H Hemoglobin A1c Calcium 8.1 L Ferritin AST 51 H 57 H 41 H Lactate Dehydrogenase Total Creatine Kinase C-Reactive Protein Albumin 3.1 L 2.9 L 2.8 L Coronavirus (PCR) - Diagnostic Findings Chest x-ray: image reviewed CT scan - chest: image reviewed Assessment and Plan 40 y/o obese male admitted with COVID 19 pneumonia and acute respiratory failure 1. Prone if able and for as long as possible 2. Consider increasing steroids to at least BID 3. Will stop IVF's as lungs need to be kept as dry as possible 4. Consider PRN lasix use 5. Abx therapy per ID 6. Guarded prognosis.
--- NOTE | 2021-07-06 10:31 | Progress Note ---
Assessment and Plan Assessment and plan: This is a 40-year-old male with no past medical history and who was recently diagnosed with COVID-19 viral infection a week ago presents to the ED with complaint of acute onset persistent shortness of breath on exertion, persistent dry cough, intermittent fever of up to 103 F, chills, lack of a ppetite, body aches and pains, and generalized fatigue and weakness for the last 1 week. Patient states that in the last 2 days his shortness of breath is worsened such that even with walking from his bed to the toilet worsen his symptoms. Checks x-ray done and it showed pneumonia. I reviewed patient medical record, lab work and vital signs. Patient has elevated D-dimer -CT of the chest has been orderedwe will follow-up with results. (1) COVID-19 virus infection Current Visit: No Status: Acute Plan to address problem: airborne and contact isolation per covid protocol Monitor inflammatory maker Chest x-ray -showed pneumonia Empiric abx therapy azithromycin and Rocephin Check procalcitonin oxygen supplement if needed Ascorbic acid, zinc sulphate and vitamin D-when tolerating oral intake Encourage the use of incentive spirometer and prone position (2) Bilateral pneumonia Current Visit: No Status: Acute Plan to address problem: Continue empiric antibiotics ABG and serial chest x-ray (3) Hyponatremia Current Visit: No Status: Acute Plan to address problem: Continue IV hydration with normal saline Monitor sodium level (4) Hypokalemia Current Visit: No Status: Acute Plan to address problem: Replace potassium Monitor electrolytes (5) Elevated d-dimer Current Visit: Yes Status: Acute Plan to address problem: D-dimer 786.[address] rule out pulmonary embolism (6) DVT prophylaxis Current Visit: No Status: Acute Plan to address problem: Lovenox subcutaneous 07/05: Patient seen and examined still with shortness of breath ID input is noted IV/PO Dexamethasone x 10 days, IV remdesivir x 5 days, ordered for management of COVID-19. Continue oxygen and wean as tolerated will consult pulmonary for assistance. Encourage prone positioning. Monitor inflammatory markers co ndition is guarded. Will reevaluate tomorrow and possible trial of Lasix therapy. In addition to IDs recommendation "if hypoxia worsens to requiring HFNC >30 L/min, given CRP >7.5, would be candidate for Actemra (depending on availability)" CT CHEST: IMPRESSION: 1. No CT evidence for pulmonary embolism. 2. Extensive bilateral pneumonia characteristic of atypical/viral pneumonia such as Covid. 3. Hepatic steatosis. 07/06: Patient continues on high flow oxygen at this time. Remdesivir of steroids initiated. We will start patient on Lasix and monitor renal function. Will check urine osmolarity to guide therapy. Patient states that he prone last night encouraged him to continue to do the same movement throughout the day. Initiate vitamins to assist in management to monitor inflammatory markers. History Interval history: Patient seen and examined still with shortness of breath and cough. Patient remains on 12 L of oxygen Hospitalist Physical - Physical exam Narrative exam: VITAL SIGNS: Reviewed. GENERAL: The patient appears normally developed, obese, exertional dyspnea persist vital signs as documented. HEAD: No signs of head trauma. EYES: Pupils are equal. Extraocular motions intact. EARS: Hearing grossly intact. MOUTH: Oropharynx is normal. NECK: No adenopathy, no JVD. CHEST: Chest with diminished breath sounds bilaterally. No wheezes, rales, or rhonchi. CARDIAC: Regular rate and rhythm. S1 and S2, without murmurs, gallops, or rubs. VASCULAR: No Edema. Peripheral pulses normal and equal in all extremities. ABDOMEN: Soft, non tender and non distended. No rebound or guarding, and no masses palpated. Bowel Sounds normal. MUSCULOSKELETAL: Good range of motion of all major joints. Extremities without clubbing, cyanosis or edema. NEUROLOGIC EXAM: Alert and oriented x 3 No focal sensory or strength deficits. Speech normal. Follows commands. PSYCHIATRIC: Mood normal. SKIN: detail exam as documented in skin assessment - Constitutional Vitals: Temp Pulse Resp BP Pulse Ox 98.1 F 102 H 18 129/84 93 07/06/21 05:32 07/06/21 05:32 07/06/21 05:32 07/06/21 05:32 07/06/21 05:32 HEART Score - HEART Score Troponin: Troponin T < 0.010 ng/mL (0.00-0.029) 07/04/21 03:33 Results - Labs CBC & Chem 7: 07/05/21 05:24 07/06/21 05:35 Labs: Laboratory Last Values WBC 14.6 K/mm3 (4.5-11.0) H 07/05/21 05:24 RBC 4.54 M/mm3 (3.65-5.03) 07/05/21 05:24 Hgb 14.2 gm/dl (11.8-15.2) 07/05/21 05:24 Hct 41.0 % (35.5-45.6) 07/05/21 05:24 MCV 90 fl (84-94) 07/05/21 05:24 MCH 31 pg (28-32) 07/05/21 05:24 MCHC 35 % (32-34) H 07/05/21 05:24 RDW 13.8 % (13.2-15.2) 07/05/21 05:24 Plt Count 306 K/mm3 (140-440) 07/05/21 05:24 Lymph % (Auto) 8.0 % (13.4-35.0) L 07/04/21 03:02 [place] % (Auto) 5.1 % (0.0-7.3) 07/04/21 03:02 Eos % (Auto) 0.0 % (0.0-4.3) 07/04/21 03:02 Baso % (Auto) 0.5 % (0.0-1.8) 07/04/21 03:02 Lymph # (Auto) 0.8 K/mm3 (1.2-5.4) L 07/04/21 03:02 [place] # (Auto) 0.5 K/mm3 (0.0-0.8) 07/04/21 03:02 Eos # (Auto) 0.0 K/mm3 (0.0-0.4) 07/04/21 03:02 Baso # (Auto) 0.1 K/mm3 (0.0-0.1) 07/04/21 03:02 Add Manual Diff Complete 07/05/21 05:24 Total Counted 100 07/05/21 05:24 Seg Neutrophils % 86.4 % (40.0-70.0) H 07/04/21 03:02 Seg Neuts % (Manual) 80.0 % (40.0-70.0) H 07/05/21 05:24 Band Neutrophils % 5.0 % 07/05/21 05:24 Lymphocytes % (Manual) 10.0 % (13.4-35.0) L 07/05/21 05:24 Monocytes % (Manual) 5.0 % (0.0-7.3) 07/05/21 05:24 Nucleated RBC % Not Reportable 07/05/21 05:24 Seg Neutrophils # 9.1 K/mm3 (1.8-7.7) H 07/04/21 03:02 Seg Neutrophils # Man 11.7 K/mm3 (1.8-7.7) H 07/05/21 05:24 Band Neutrophils # 0.7 K/mm3 07/05/21 05:24 Lymphocytes # (Manual) 1.5 K/mm3 (1.2-5.4) 07/05/21 05:24 Abs React Lymphs (Man) 0.0 K/mm3 07/05/21 05:24 Monocytes # (Manual) 0.7 K/mm3 (0.0-0.8) 07/05/21 05:24 Eosinophils # (Manual) 0.0 K/mm3 (0.0-0.4) 07/05/21 05:24 Basophils # (Manual) 0.0 K/mm3 (0.0-0.1) 07/05/21 05:24 Metamyelocytes # 0.0 K/mm3 07/05/21 05:24 Myelocytes # 0.0 K/mm3 07/05/21 05:24 Promyelocytes # 0.0 K/mm3 07/05/21 05:24 Blast Cells # 0.0 K/mm3 07/05/21 05:24 WBC Morphology Not Reportable 07/05/21 05:24 Hypersegmented Neuts Not Reportable 07/05/21 05:24 Hyposegmented Neuts Not Reportable 07/05/21 05:24 Hypogranular Neuts Not Reportable 07/05/21 05:24 Smudge Cells Not Reportable 07/05/21 05:24 Toxic Granulation Not Reportable 07/05/21 05:24 Toxic Vacuolation Not Reportable 07/05/21 05:24 Dohle Bodies Not Reportable 07/05/21 05:24 Pelger-Huet Anomaly Not Reportable 07/05/21 05:24 Smiley Rods Not Reportable 07/05/21 05:24 Platelet Estimate Consistent w auto 07/05/21 05:24 Clumped Platelets Not Reportable 07/05/21 05:24 Plt Clumps, EDTA Not Reportable 07/05/21 05:24 Large Platelets Not Reportable 07/05/21 05:24 Giant Platelets Not Reportable 07/05/21 05:24 Platelet Satelliting Not Reportable 07/05/21 05:24 Plt Morphology Comment Not Reportable 07/05/21 05:24 RBC Morphology Normal 07/05/21 05:24 Dimorphic RBCs Not Reportable 07/05/21 05:24 Polychromasia Not Reportable 07/05/21 05:24 Hypochromasia Not Reportable 07/05/21 05:24 Poikilocytosis Not Reportable 07/05/21 05:24 Anisocytosis Not Reportable 07/05/21 05:24 Microcytosis Not Reportable 07/05/21 05:24 Macrocytosis Not Reportable 07/05/21 05:24 Spherocytes Not Reportable 07/05/21 05:24 Pappenheimer Bodies Not Reportable 07/05/21 05:24 Sickle Cells Not Reportable 07/05/21 05:24 Target Cells Not Reportable 07/05/21 05:24 Tear Drop Cells Not Reportable 07/05/21 05:24 Ovalocytes Not Reportable 07/05/21 05:24 Helmet Cells Not Reportable 07/05/21 05:24 [place] Bodies Not Reportable 07/05/21 05:24 [place] Rings Not Reportable 07/05/21 05:24 [place] Cells Not Reportable 07/05/21 05:24 Bite Cells Not Reportable 07/05/21 05:24 Crenated Cell Not Reportable 07/05/21 05:24 Elliptocytes Not Reportable 07/05/21 05:24 Acanthocytes (Spur) Not Reportable 07/05/21 05:24 Rouleaux Not Reportable 07/05/21 05:24 Hemoglobin C Crystals Not Reportable 07/05/21 05:24 Schistocytes Not Reportable 07/05/21 05:24 Malaria parasites Not Reportable 07/05/21 05:24 [place] Bodies Not Reportable 07/05/21 05:24 Hem Pathologist Commnt No 07/05/21 05:24 D-Dimer 786.71 ng/mlDDU (0-234) H 07/04/21 03:33 Sodium 139 mmol/L (137-145) 07/06/21 05:35 Potassium 4.0 mmol/L (3.6-5.0) 07/06/21 05:35 Chloride 104.2 mmol/L (98-107) 07/06/21 05:35 Carbon Dioxide 24 mmol/L (22-30) 07/06/21 05:35 Anion Gap 15 mmol/L 07/06/21 05:35 BUN 17 mg/dL (9-20) 07/06/21 05:35 Creatinine 0.7 mg/dL (0.8-1.3) L 07/06/21 05:35 Estimated GFR > 60 ml/min 07/06/21 05:35 BUN/Creatinine Ratio 24 % 07/06/21 05:35 Glucose 195 mg/dL (75-100) H 07/06/21 05:35 Hemoglobin A1c 7.3 % (4-6) H 07/04/21 08:29 Lactic Acid 1.70 mmol/L (0.7-2.0) 07/04/21 03:01 Calcium 8.4 mg/dL (8.4-10.2) 07/06/21 05:35 Ferritin 2452.0 ng/mL (30.0-300.0) H 07/04/21 03:33 Total Bilirubin 0.50 mg/dL (0.1-1.2) 07/06/21 05:35 AST 41 units/L (5-40) H 07/06/21 05:35 ALT 43 units/L (7-56) 07/06/21 05:35 Alkaline Phosphatase 65 units/L (35-129) 07/06/21 05:35 Lactate Dehydrogenase 759 units/L (91-180) H 07/04/21 03:33 Total Creatine Kinase 194 units/L (55-170) H 07/04/21 03:33 Troponin T < 0.010 ng/mL (0.00-0.029) 07/04/21 03:33 C-Reactive Protein 24.40 mg/dL (0.00-1.30) H 07/04/21 03:33 Total Protein 6.8 g/dL (6.3-8.2) 07/06/21 05:35 Albumin 2.8 g/dL (3.9-5) L 07/06/21 05:35 Albumin/Globulin Ratio 0.7 % 07/06/21 05:35 Procalcitonin 0.70 ng/mL (<0.15) 07/04/21 03:33 Coronavirus (PCR) Positive (Negative) A 07/04/21 09:40 Microbiology: Microbiology 07/04/21 02:57 Peripheral/Venous Blood Culture - Preliminary NO GROWTH AFTER 48 HOURS 07/04/21 03:01 Peripheral/Venous Blood Culture - Preliminary NO GROWTH AFTER 48 HOURS Moore/IV: Voiding Method Urinal Active Medications - Current Medications Current Medications: Generic Name Dose Route Start Last Admin Trade Name Freq PRN Reason Stop Dose Admin Acetaminophen 650 mg 07/04/21 04:11 Acetaminophen 325 Mg Tab PO Q4H PRN Pain MILD(1-3)/Fever >100.5/[place] Al Hydrox/Mg Hydrox/Simethicone 30 ml 07/04/21 04:11 Alum-Mag Hydroxide-Simethicone [phone]/5ml Oral Liqd 30 Ml PO Q4H PRN Indigestion Ascorbic Acid 500 mg 07/04/21 10:00 07/05/21 12:46 Ascorbic Acid 500 Mg Tab PO 500 mg QDAY [place] Administration Cholecalciferol 1,000 unit 07/04/21 10:00 07/05/21 12:45 Cholecalciferol (Vit D3) 1000 Unit (25 Mcg) Tab PO 1,000 unit QDAY [place] Administration Dexamethasone 6 mg 07/06/21 22:00 Dexamethasone 4 Mg/Ml Vial IV 07/14/21 10:01 Q12HR [place] Enoxaparin Sodium 40 mg 07/04/21 10:00 07/05/21 12:45 Enoxaparin 40 Mg/0.4 Ml Inj SUB-Q 40 mg QDAY [place] Administration Furosemide 40 mg 07/06/21 11:00 Furosemide 40 Mg/4 Ml Inj IV QDAY [place] Azithromycin 500 mg in 250 mls @ 250 mls/hr 07/05/21 05:00 07/06/21 06:40 Zithromax/Ns IV 07/08/21 05:59 250 mls/hr Q24H [place] Administration Ceftriaxone Sodium 1 gm in 50 mls @ 100 mls/hr 07/05/21 05:00 07/06/21 05:33 Rocephin/Ns 1 Gm/50 Ml IV 07/08/21 05:29 100 mls/hr Q24H [place] Administration Protocol REMDESIVIR 100 mg/ Sodium 250 mls @ 500 mls/hr 07/06/21 21:00 Chloride IV 07/09/21 21:29 Q24HR@2100 [place] Magnesium Hydroxide 30 ml 07/04/21 04:11 Magnesium Hydroxide (Mom) Oral Liqd Udc PO Q4H PRN Constipation Metoclopramide HCl 10 mg 07/04/21 04:11 Metoclopramide 10 Mg/2 Ml Inj IV Q6H PRN Nausea And Vomiting Morphine Sulfate 2 mg 07/04/21 04:11 Morphine 2 Mg/1 Ml Inj IV Q4H PRN Pain, Moderate (4-6) Morphine Sulfate 4 mg 07/04/21 04:11 Morphine 4 Mg/1 Ml Inj IV Q4H PRN Pain , Severe (7-10) Naloxone HCl 0.1 mg 07/04/21 04:11 Naloxone 0.4 Mg/1 Ml Inj IV Q2MIN PRN Res Rate </= 8 or 02 SAT < 92% Ondansetron HCl 4 mg 07/04/21 04:11 Ondansetron 4 Mg/2 Ml Inj IV Q8H PRN Nausea And Vomiting Oxycodone/Acetaminophen 1 tab 07/04/21 04:11 Oxycodone /Acetaminophen 5-325mg Tab PO Q6H PRN Pain, Moderate (4-6) Senna 8.6 mg 07/04/21 04:11 Sennosides 8.6 Mg Tab PO Q12HR PRN Constipation Sodium Chloride 10 ml 07/04/21 10:00 07/05/21 21:37 Sodium Chloride 0.9% 10 Ml Flush Syringe IV 10 ml BID [place] Administration Sodium Chloride 50 ml 07/05/21 14:30 07/05/21 21:36 Sodium Chloride 0.9% 50 Ml Ivpb IV 07/09/21 21:01 50 ml Q24HR@2100 [place] Administration Zinc Sulfate 220 mg 07/04/21 10:00 07/05/21 12:46 Zinc Sulfate 220 Mg Cap PO 220 mg QDAY [place] Administration
[2021-07-06] MEDS: FUROSEMIDE 40 MG/4 ML INJ IV SCH (11:21)
[2021-07-06] MEDS: ENOXAPARIN 40 MG/0.4 ML INJ SUB-Q SCH (11:21)
[2021-07-06] MEDS: ZINC SULFATE 220 MG CAP PO SCH (11:22)
[2021-07-06] MEDS: dexAMETHasone 4 MG/ML VIAL IV SCH ×2 (11:22→21:07)
[2021-07-06] MEDS: ASCORBIC ACID 500 MG TAB PO SCH (11:22)
[2021-07-06] MEDS: CHOLECALCIFEROL (VIT D3) 1000 UNIT (25 mcg) TAB PO SCH (11:23)
--- NOTE | 2021-07-06 14:17 | Progress Note ---
Assessment and Plan Cultures: SARS CoV2 PCR: Positive 07/04/2021 blood culture: No growth A/P: 40/M with: #Bilateral pneumonia: secondary to COVID-19 #Acute hypoxic respiratory failure: Requiring nasal cannula. Recs: continue IV/PO Dexamethasone x 10 days, agree with higher dose continue IV remdesivir x 5 days if hypoxia worsens to requiring HFNC >30 L/min, given CRP >7.5, would be candidate for Actemra (depending on availability) prophylactic anticoagulation based on d-dimer per hospital protocol complete 5 days of empiric abx due to moderate procalcitonin trend d-dimer, CRP every 2-3 days Katelyn Hernandez MD, FACP [facility] ([facility] O: [phone] F: [phone] Subjective Date of service: 07/06/21 Interval history: Afebrile. On oxygen via [place]. COVID-19 PCR came back positive. Procalcitonin 0.7 Objective - Exam Narrative Exam: Physical Exam (reviewed in chart to minimize risk of transmission) Constitutional: deferred Head, Ears, Nose: deferred Eyes: deferred Neck: deferred Oral: deferred Cardiovascular: deferred Respiratory: deferred GI: deferred Musculoskeletal: deferred Skin: deferred Hem/Lymphatic: deferred Psych: deferred Neurological: deferred - Constitutional Vitals: Vital Signs Temp Pulse Resp BP Pulse Ox 97.7 F 108 H 19 138/87 92 07/06/21 11:23 07/06/21 11:23 07/06/21 11:23 07/06/21 11:23 07/06/21 11:23 Temperature -Last 24 Hours Temperature 97.7 F Temperature 98.1 F Temperature 97.5 F Temperature 98.7 F - Labs CBC & Chem 7: 07/05/21 05:24 07/06/21 05:35 Labs: Abnormal lab results 07/05/21 07/05/21 07/06/21 Range/Units 05:24 13:31 05:35 Seg Neuts % (Manual) 80.0 H (40.0-70.0) % Lymphocytes % (Manual) 10.0 L (13.4-35.0) % Seg Neutrophils # Man 11.7 H (1.8-7.7) K/mm3 Creatinine 0.6 L 0.7 L (0.8-1.3) mg/dL Glucose 195 H (75-100) mg/dL AST 57 H 41 H (5-40) units/L Albumin 2.8 L (3.9-5) g/dL
[2021-07-06] MEDS: REMDESIVIR 100 MG in SODIUM CHLORIDE 0.9% 250ML 250 ML IV SCH (21:06)
[2021-07-06] MEDS: SODIUM CHLORIDE 0.9% 50 ML IVPB IV SCH (23:00)
[2021-07-07] MEDS: cefTRIAXone/NS 1 GM/50 ML 1 GM/50 ML BAG IV SCH (05:05)
[2021-07-07] MEDS: AZITHROMYCIN/NS 500 MG/250 ML 500 MG/250 ML BAG IV SCH (06:05)
[2021-07-07 07:36] LABS: Mean Corpuscular HGB Conc 36 % (32-34); Mean Corpuscular Volume 91 fl (84-94); Platelet Count 416 K/mm3 (140-440); Red Blood Count 4.38 M/mm3 (3.65-5.03); Red Cell Distribution Width 13.5 % (13.2-15.2)
[2021-07-07 07:51] LABS: Hematocrit 39.8 % (35.5-45.6); Hemoglobin 14.4 gm/dl (11.8-15.2)
[2021-07-07 07:56] LABS: Alanine Aminotransferase 52 units/L (7-56); Albumin 3.3 g/dL (3.9-5); Blood Urea Nitrogen 23 mg/dL (9-20); Calcium 8.7 mg/dL (8.4-10.2); Hemolysis Index 5
[2021-07-07 07:58] LABS: BUN/Creatinine Ratio 33
--- NOTE | 2021-07-07 10:54 | Progress Note ---
Assessment and Plan Assessment and plan: This is a 40-year-old male with no past medical history and who was recently diagnosed with COVID-19 viral infection a week ago presents to the ED with complaint of acute onset persistent shortness of breath on exertion, persistent dry cough, intermittent fever of up to 103 F, chills, lack of a ppetite, body aches and pains, and generalized fatigue and weakness for the last 1 week. Patient states that in the last 2 days his shortness of breath is worsened such that even with walking from his bed to the toilet worsen his symptoms. Checks x-ray done and it showed pneumonia. I reviewed patient medical record, lab work and vital signs. Patient has elevated D-dimer -CT of the chest has been orderedwe will follow-up with results. (1) COVID-19 virus infection Current Visit: No Status: Acute Plan to address problem: airborne and contact isolation per covid protocol Monitor inflammatory maker Chest x-ray -showed pneumonia Empiric abx therapy azithromycin and Rocephin Check procalcitonin oxygen supplement if needed Ascorbic acid, zinc sulphate and vitamin D-when tolerating oral intake Encourage the use of incentive spirometer and prone position (2) Bilateral pneumonia Current Visit: No Status: Acute Plan to address problem: Continue empiric antibiotics ABG and serial chest x-ray (3) Hyponatremia Current Visit: No Status: Acute Plan to address problem: Continue IV hydration with normal saline Monitor sodium level (4) Hypokalemia Current Visit: No Status: Acute Plan to address problem: Replace potassium Monitor electrolytes (5) Elevated d-dimer Current Visit: Yes Status: Acute Plan to address problem: D-dimer 786.[address] rule out pulmonary embolism (6) DVT prophylaxis Current Visit: No Status: Acute Plan to address problem: Lovenox subcutaneous 07/05: Patient seen and examined still with shortness of breath ID input is noted IV/PO Dexamethasone x 10 days, IV remdesivir x 5 days, ordered for management of COVID-19. Continue oxygen and wean as tolerated will consult pulmonary for assistance. Encourage prone positioning. Monitor inflammatory markers co ndition is guarded. Will reevaluate tomorrow and possible trial of Lasix therapy. In addition to IDs recommendation "if hypoxia worsens to requiring HFNC >30 L/min, given CRP >7.5, would be candidate for Actemra (depending on availability)" CT CHEST: IMPRESSION: 1. No CT evidence for pulmonary embolism. 2. Extensive bilateral pneumonia characteristic of atypical/viral pneumonia such as Covid. 3. Hepatic steatosis. 07/06: Patient continues on high flow oxygen at this time. Remdesivir and steroids initiated. We will start patient on Lasix and monitor renal function. Will check urine osmolarity to guide therapy. Patient states that he prone last night encouraged him to continue to do the same movement throughout the day. Initiate vitamins to assist in management to monitor inflammatory markers. 07/07: Continue current management. Monitor renal function with addition of Lasix. Continue steroids and remdesivir. ID and pulmonary input appreciated History Interval history: Patient seen and examined still with shortness of breath and cough. Patient remains on 10 L of oxygen Hospitalist Physical - Physical exam Narrative exam: VITAL SIGNS: Reviewed. GENERAL: The patient appears normally developed, obese, he was lying prone this morning. Exertional dyspnea persist vital signs as documented. HEAD: No signs of head trauma. EYES: Pupils are equal. Extraocular motions intact. EARS: Hearing grossly intact. MOUTH: Oropharynx is normal. NECK: No adenopathy, no JVD. CHEST: Chest with diminished breath sounds bilaterally. No wheezes, rales, or rhonchi. CARDIAC: Regular rate and rhythm. S1 and S2, without murmurs, gallops, or rubs. VASCULAR: No Edema. Peripheral pulses normal and equal in all extremities. ABDOMEN: Soft, non tender and non distended. No rebound or guarding, and no masses palpated. Bowel Sounds normal. MUSCULOSKELETAL: Good range of motion of all major joints. Extremities without clubbing, cyanosis or edema. NEUROLOGIC EXAM: Alert and oriented x 3 No focal sensory or strength deficits. Speech normal. Follows commands. PSYCHIATRIC: Mood normal. SKIN: detail exam as documented in skin assessment - Constitutional Vitals: Temp Pulse Resp BP Pulse Ox 97.6 F 94 H 22 142/92 96 07/06/21 23:12 07/06/21 23:12 07/06/21 23:12 07/06/21 23:12 07/07/21 03:21 HEART Score - HEART Score Troponin: Troponin T < 0.010 ng/mL (0.00-0.029) 07/04/21 03:33 Results - Labs CBC & Chem 7: 07/07/21 05:54 07/07/21 05:54 Labs: Laboratory Last Values WBC 11.3 K/mm3 (4.5-11.0) H 07/07/21 05:54 RBC 4.38 M/mm3 (3.65-5.03) 07/07/21 05:54 Hgb 14.4 gm/dl (11.8-15.2) 07/07/21 05:54 Hct 39.8 % (35.5-45.6) 07/07/21 05:54 MCV 91 fl (84-94) 07/07/21 05:54 MCH 33 pg (28-32) H 07/07/21 05:54 MCHC 36 % (32-34) H 07/07/21 05:54 RDW 13.5 % (13.2-15.2) 07/07/21 05:54 Plt Count 416 K/mm3 (140-440) 07/07/21 05:54 Lymph % (Auto) 8.0 % (13.4-35.0) L 07/04/21 03:02 [place] % (Auto) 5.1 % (0.0-7.3) 07/04/21 03:02 Eos % (Auto) 0.0 % (0.0-4.3) 07/04/21 03:02 Baso % (Auto) 0.5 % (0.0-1.8) 07/04/21 03:02 Lymph # (Auto) 0.8 K/mm3 (1.2-5.4) L 07/04/21 03:02 [place] # (Auto) 0.5 K/mm3 (0.0-0.8) 07/04/21 03:02 Eos # (Auto) 0.0 K/mm3 (0.0-0.4) 07/04/21 03:02 Baso # (Auto) 0.1 K/mm3 (0.0-0.1) 07/04/21 03:02 Add Manual Diff Complete 07/05/21 05:24 Total Counted 100 07/05/21 05:24 Seg Neutrophils % 86.4 % (40.0-70.0) H 07/04/21 03:02 Seg Neuts % (Manual) 80.0 % (40.0-70.0) H 07/05/21 05:24 Band Neutrophils % 5.0 % 07/05/21 05:24 Lymphocytes % (Manual) 10.0 % (13.4-35.0) L 07/05/21 05:24 Monocytes % (Manual) 5.0 % (0.0-7.3) 07/05/21 05:24 Nucleated RBC % Not Reportable 07/05/21 05:24 Seg Neutrophils # 9.1 K/mm3 (1.8-7.7) H 07/04/21 03:02 Seg Neutrophils # Man 11.7 K/mm3 (1.8-7.7) H 07/05/21 05:24 Band Neutrophils # 0.7 K/mm3 07/05/21 05:24 Lymphocytes # (Manual) 1.5 K/mm3 (1.2-5.4) 07/05/21 05:24 Abs React Lymphs (Man) 0.0 K/mm3 07/05/21 05:24 Monocytes # (Manual) 0.7 K/mm3 (0.0-0.8) 07/05/21 05:24 Eosinophils # (Manual) 0.0 K/mm3 (0.0-0.4) 07/05/21 05:24 Basophils # (Manual) 0.0 K/mm3 (0.0-0.1) 07/05/21 05:24 Metamyelocytes # 0.0 K/mm3 07/05/21 05:24 Myelocytes # 0.0 K/mm3 07/05/21 05:24 Promyelocytes # 0.0 K/mm3 07/05/21 05:24 Blast Cells # 0.0 K/mm3 07/05/21 05:24 WBC Morphology Not Reportable 07/05/21 05:24 Hypersegmented Neuts Not Reportable 07/05/21 05:24 Hyposegmented Neuts Not Reportable 07/05/21 05:24 Hypogranular Neuts Not Reportable 07/05/21 05:24 Smudge Cells Not Reportable 07/05/21 05:24 Toxic Granulation Not Reportable 07/05/21 05:24 Toxic Vacuolation Not Reportable 07/05/21 05:24 Dohle Bodies Not Reportable 07/05/21 05:24 Pelger-Huet Anomaly Not Reportable 07/05/21 05:24 Smiley Rods Not Reportable 07/05/21 05:24 Platelet Estimate Consistent w auto 07/05/21 05:24 Clumped Platelets Not Reportable 07/05/21 05:24 Plt Clumps, EDTA Not Reportable 07/05/21 05:24 Large Platelets Not Reportable 07/05/21 05:24 Giant Platelets Not Reportable 07/05/21 05:24 Platelet Satelliting Not Reportable 07/05/21 05:24 Plt Morphology Comment Not Reportable 07/05/21 05:24 RBC Morphology Normal 07/05/21 05:24 Dimorphic RBCs Not Reportable 07/05/21 05:24 Polychromasia Not Reportable 07/05/21 05:24 Hypochromasia Not Reportable 07/05/21 05:24 Poikilocytosis Not Reportable 07/05/21 05:24 Anisocytosis Not Reportable 07/05/21 05:24 Microcytosis Not Reportable 07/05/21 05:24 Macrocytosis Not Reportable 07/05/21 05:24 Spherocytes Not Reportable 07/05/21 05:24 Pappenheimer Bodies Not Reportable 07/05/21 05:24 Sickle Cells Not Reportable 07/05/21 05:24 Target Cells Not Reportable 07/05/21 05:24 Tear Drop Cells Not Reportable 07/05/21 05:24 Ovalocytes Not Reportable 07/05/21 05:24 Helmet Cells Not Reportable 07/05/21 05:24 [place] Bodies Not Reportable 07/05/21 05:24 [place] Rings Not Reportable 07/05/21 05:24 [place] Cells Not Reportable 07/05/21 05:24 Bite Cells Not Reportable 07/05/21 05:24 Crenated Cell Not Reportable 07/05/21 05:24 Elliptocytes Not Reportable 07/05/21 05:24 Acanthocytes (Spur) Not Reportable 07/05/21 05:24 Rouleaux Not Reportable 07/05/21 05:24 Hemoglobin C Crystals Not Reportable 07/05/21 05:24 Schistocytes Not Reportable 07/05/21 05:24 Malaria parasites Not Reportable 07/05/21 05:24 [place] Bodies Not Reportable 07/05/21 05:24 Hem Pathologist Commnt No 07/05/21 05:24 D-Dimer 786.71 ng/mlDDU (0-234) H 07/04/21 03:33 Sodium 138 mmol/L (137-145) 07/07/21 05:54 Potassium 4.0 mmol/L (3.6-5.0) 07/07/21 05:54 Chloride 101.3 mmol/L (98-107) 07/07/21 05:54 Carbon Dioxide 27 mmol/L (22-30) 07/07/21 05:54 Anion Gap 14 mmol/L 07/07/21 05:54 BUN 23 mg/dL (9-20) H 07/07/21 05:54 Creatinine 0.7 mg/dL (0.8-1.3) L 07/07/21 05:54 Estimated GFR > 60 ml/min 07/07/21 05:54 BUN/Creatinine Ratio 33 % 07/07/21 05:54 Glucose 266 mg/dL (75-100) H 07/07/21 05:54 Hemoglobin A1c 7.3 % (4-6) H 07/04/21 08:29 Lactic Acid 1.70 mmol/L (0.7-2.0) 07/04/21 03:01 Calcium 8.7 mg/dL (8.4-10.2) 07/07/21 05:54 Ferritin 2452.0 ng/mL (30.0-300.0) H 07/04/21 03:33 Total Bilirubin 0.50 mg/dL (0.1-1.2) 07/07/21 05:54 AST 34 units/L (5-40) 07/07/21 05:54 ALT 52 units/L (7-56) 07/07/21 05:54 Alkaline Phosphatase 70 units/L (35-129) 07/07/21 05:54 Lactate Dehydrogenase 759 units/L (91-180) H 07/04/21 03:33 Total Creatine Kinase 194 units/L (55-170) H 07/04/21 03:33 Troponin T < 0.010 ng/mL (0.00-0.029) 07/04/21 03:33 C-Reactive Protein 24.40 mg/dL (0.00-1.30) H 07/04/21 03:33 Total Protein 7.0 g/dL (6.3-8.2) 07/07/21 05:54 Albumin 3.3 g/dL (3.9-5) L 07/07/21 05:54 Albumin/Globulin Ratio 0.9 % 07/07/21 05:54 Procalcitonin 0.70 ng/mL (<0.15) 07/04/21 03:33 Coronavirus (PCR) Positive (Negative) A 07/04/21 09:40 Microbiology: Microbiology 07/04/21 02:57 Peripheral/Venous Blood Culture - Preliminary NO GROWTH AFTER 72 HOURS 07/04/21 03:01 Peripheral/Venous Blood Culture - Preliminary NO GROWTH AFTER 72 HOURS Moore/IV: Voiding Method Urinal Active Medications - Current Medications Current Medications: Generic Name Dose Route Start Last Admin Trade Name Freq PRN Reason Stop Dose Admin Acetaminophen 650 mg 07/04/21 04:11 Acetaminophen 325 Mg Tab PO Q4H PRN Pain MILD(1-3)/Fever >100.5/[place] Al Hydrox/Mg Hydrox/Simethicone 30 ml 07/04/21 04:11 Alum-Mag Hydroxide-Simethicone [id number]/5ml Oral Liqd 30 Ml PO Q4H PRN Indigestion Ascorbic Acid 500 mg 07/04/21 10:00 07/06/21 11:22 Ascorbic Acid 500 Mg Tab PO 500 mg QDAY [place] Administration Cholecalciferol 1,000 unit 07/04/21 10:00 07/06/21 11:23 Cholecalciferol (Vit D3) 1000 Unit (25 Mcg) Tab PO 1,000 unit QDAY [place] Administration Dexamethasone 6 mg 07/06/21 10:45 07/06/21 21:07 Dexamethasone 4 Mg/Ml Vial IV 07/14/21 10:59 6 mg Q12HR [place] Administration Enoxaparin Sodium 40 mg 07/04/21 10:00 07/06/21 11:21 Enoxaparin 40 Mg/0.4 Ml Inj SUB-Q 40 mg QDAY [place] Administration Furosemide 40 mg 07/06/21 11:00 07/06/21 11:21 Furosemide 40 Mg/4 Ml Inj IV 40 mg QDAY [place] Administration Azithromycin 500 mg in 250 mls @ 250 mls/hr 07/05/21 05:00 07/07/21 06:05 Zithromax/Ns IV 07/08/21 05:59 250 mls/hr Q24H [place] Administration Ceftriaxone Sodium 1 gm in 50 mls @ 100 mls/hr 07/05/21 05:00 07/07/21 05:05 Rocephin/Ns 1 Gm/50 Ml IV 07/08/21 05:29 100 mls/hr Q24H [place] Administration Protocol REMDESIVIR 100 mg/ Sodium 250 mls @ 500 mls/hr 07/06/21 21:00 07/06/21 21:06 Chloride IV 07/09/21 21:29 500 mls/hr Q24HR@2100 [place] Administration Magnesium Hydroxide 30 ml 07/04/21 04:11 Magnesium Hydroxide (Mom) Oral Liqd Udc PO Q4H PRN Constipation Metoclopramide HCl 10 mg 07/04/21 04:11 Metoclopramide 10 Mg/2 Ml Inj IV Q6H PRN Nausea And Vomiting Morphine Sulfate 2 mg 07/04/21 04:11 Morphine 2 Mg/1 Ml Inj IV Q4H PRN Pain, Moderate (4-6) Morphine Sulfate 4 mg 07/04/21 04:11 Morphine 4 Mg/1 Ml Inj IV Q4H PRN Pain , Severe (7-10) Naloxone HCl 0.1 mg 07/04/21 04:11 Naloxone 0.4 Mg/1 Ml Inj IV Q2MIN PRN Res Rate </= 8 or 02 SAT < 92% Ondansetron HCl 4 mg 07/04/21 04:11 Ondansetron 4 Mg/2 Ml Inj IV Q8H PRN Nausea And Vomiting Oxycodone/Acetaminophen 1 tab 07/04/21 04:11 Oxycodone /Acetaminophen 5-325mg Tab PO Q6H PRN Pain, Moderate (4-6) Senna 8.6 mg 07/04/21 04:11 Sennosides 8.6 Mg Tab PO Q12HR PRN Constipation Sodium Chloride 10 ml 07/04/21 10:00 07/06/21 21:09 Sodium Chloride 0.9% 10 Ml Flush Syringe IV 10 ml BID [place] Administration Sodium Chloride 50 ml 07/05/21 14:30 07/06/21 23:00 Sodium Chloride 0.9% 50 Ml Ivpb IV 07/09/21 21:01 50 ml Q24HR@2100 [place] Administration Zinc Sulfate 220 mg 07/04/21 10:00 09/28/21 11:22 Zinc Sulfate 220 Mg Cap PO 220 mg QDAY [place] Administration
--- NOTE | 2021-07-07 12:07 | Progress Note ---
Assessment and Plan Cultures: SARS CoV2 PCR: Positive 07/04/2021 blood culture: No growth A/P: 40/M with: #Bilateral pneumonia: secondary to COVID-19 #Acute hypoxic respiratory failure: Requiring Salter nasal cannula. Recs: continue IV/PO Dexamethasone x 10 days, agree with higher dose continue IV remdesivir x 5 days if hypoxia worsens to requiring HFNC >30 L/min, given CRP >7.5, would be candidate for Actemra (depending on availability) prophylactic anticoagulation based on d-dimer per hospital protocol complete 5 days of empiric abx due to moderate procalcitonin trend d-dimer, CRP every 2-3 days Katelyn Hernandez MD, FACP [facility] ([facility] O: [phone] F: [phone] Subjective Date of service: 07/07/21 Interval history: Afebrile. Remains on oxygen by nasal cannula at 10-11 L/min. Objective - Exam Narrative Exam: Physical Exam (reviewed in chart to minimize risk of transmission) Constitutional: deferred Head, Ears, Nose: deferred Eyes: deferred Neck: deferred Oral: deferred Cardiovascular: deferred Respiratory: deferred GI: deferred Musculoskeletal: deferred Skin: deferred Hem/Lymphatic: deferred Psych: deferred Neurological: deferred - Constitutional Vitals: Vital Signs Temp Pulse Resp BP Pulse Ox 97.6 F 94 H 22 142/92 91 07/06/21 23:12 07/06/21 23:12 07/06/21 23:12 07/06/21 23:12 07/07/21 08:56 Temperature -Last 24 Hours Temperature 97.6 F Temperature 97.8 F - Labs CBC & Chem 7: 07/07/21 05:54 07/07/21 05:54 Labs: Abnormal lab results 07/07/21 07/07/21 Range/Units 05:54 05:54 WBC 11.3 H (4.5-11.0) K/mm3 MCH 33 H (28-32) pg MCHC 36 H (32-34) % BUN 23 H (9-20) mg/dL Creatinine 0.7 L (0.8-1.3) mg/dL Glucose 266 H (75-100) mg/dL Albumin 3.3 L (3.9-5) g/dL
[2021-07-07] MEDS: ENOXAPARIN 40 MG/0.4 ML INJ SUB-Q SCH (12:08)
[2021-07-07] MEDS: dexAMETHasone 4 MG/ML VIAL IV SCH (12:08)
[2021-07-07] MEDS: ASCORBIC ACID 500 MG TAB PO SCH (12:08)
[2021-07-07] MEDS: FUROSEMIDE 40 MG/4 ML INJ IV SCH (12:09)
[2021-07-07] MEDS: CHOLECALCIFEROL (VIT D3) 1000 UNIT (25 mcg) TAB PO SCH (12:09)
[2021-07-07] MEDS: ZINC SULFATE 220 MG CAP PO SCH (12:09)
--- NOTE | 2021-07-07 13:29 | Progress Note ---
Assessment and Plan 40 y/o obese male admitted with COVID 19 pneumonia and acute respiratory failure 07/07/21: No new recs. See below. 1. Prone if able and for as long as possible 2. Consider increasing steroids to at least BID 3. Will stop IVF's as lungs need to be kept as dry as possible 4. Consider PRN lasix use 5. Abx therapy per ID 6. Guarded prognosis. Subjective Date of service: 07/07/21 Interval history: No acute events. Not sure how much flow patient is actually on. Objective Vital Signs - 12hr 07/07/21 07/07/21 07/07/21 03:21 06:04 08:56 Temperature 97.5 F L Pulse Rate 99 H Respiratory 20 Rate Blood Pressure 122/83 O2 Sat by Pulse 96 93 91 Oximetry 07/07/21 12:03 Temperature 97.2 F L Pulse Rate 99 H Respiratory 20 Rate Blood Pressure 139/92 O2 Sat by Pulse 92 Oximetry CBC and BMP: 07/07/21 05:54 07/07/21 05:54 ABG, PT/INR, D-dimer: PT/INR, D-dimer D-Dimer 786.71 ng/mlDDU (0-234) H 07/04/21 03:33 Abnormal lab findings: Abnormal Labs 07/04/21 07/04/21 07/04/21 03:01 03:02 03:33 WBC MCH MCHC 35 H RDW 13.1 L Lymph % (Auto) 8.0 L Lymph # (Auto) 0.8 L Seg Neutrophils % 86.4 H Seg Neuts % (Manual) Lymphocytes % (Manual) Seg Neutrophils # 9.1 H Seg Neutrophils # Man D-Dimer 786.71 H Sodium 134 L Potassium 3.3 L Chloride 94.9 L BUN Creatinine Glucose 167 H Hemoglobin A1c Calcium Ferritin AST 70 H Lactate Dehydrogenase Total Creatine Kinase C-Reactive Protein Albumin 3.6 L Coronavirus (PCR) 07/04/21 07/04/21 07/04/21 03:33 03:33 08:29 WBC MCH MCHC RDW Lymph % (Auto) Lymph # (Auto) Seg Neutrophils % Seg Neuts % (Manual) Lymphocytes % (Manual) Seg Neutrophils # Seg Neutrophils # Man D-Dimer Sodium 131 L Potassium Chloride 96.0 L BUN Creatinine Glucose 156 H 182 H Hemoglobin A1c Calcium 7.7 L Ferritin 2452.0 H AST Lactate Dehydrogenase 759 H Total Creatine Kinase 194 H C-Reactive Protein 24.40 H Albumin Coronavirus (PCR) 07/04/21 07/04/21 07/05/21 08:29 09:40 05:24 WBC 14.6 H MCH MCHC 35 H RDW Lymph % (Auto) Lymph # (Auto) Seg Neutrophils % Seg Neuts % (Manual) 80.0 H Lymphocytes % (Manual) 10.0 L Seg Neutrophils # Seg Neutrophils # Man 11.7 H D-Dimer Sodium Potassium Chloride BUN Creatinine Glucose Hemoglobin A1c 7.3 H Calcium Ferritin AST Lactate Dehydrogenase Total Creatine Kinase C-Reactive Protein Albumin Coronavirus (PCR) Positive A 07/05/21 07/05/21 07/06/21 05:24 13:31 05:35 WBC MCH MCHC RDW Lymph % (Auto) Lymph # (Auto) Seg Neutrophils % Seg Neuts % (Manual) Lymphocytes % (Manual) Seg Neutrophils # Seg Neutrophils # Man D-Dimer Sodium Potassium Chloride BUN Creatinine 0.7 L 0.6 L 0.7 L Glucose 197 H 190 H 195 H Hemoglobin A1c Calcium 8.1 L Ferritin AST 51 H 57 H 41 H Lactate Dehydrogenase Total Creatine Kinase C-Reactive Protein Albumin 3.1 L 2.9 L 2.8 L Coronavirus (PCR) 07/07/21 07/07/21 05:54 05:54 WBC 11.3 H MCH 33 H MCHC 36 H RDW Lymph % (Auto) Lymph # (Auto) Seg Neutrophils % Seg Neuts % (Manual) Lymphocytes % (Manual) Seg Neutrophils # Seg Neutrophils # Man D-Dimer Sodium Potassium Chloride BUN 23 H Creatinine 0.7 L Glucose 266 H Hemoglobin A1c Calcium Ferritin AST Lactate Dehydrogenase Total Creatine Kinase C-Reactive Protein Albumin 3.3 L Coronavirus (PCR)
[2021-07-08] MEDS: SODIUM CHLORIDE 0.9% 50 ML IVPB IV SCH ×2 (00:03→23:42)
[2021-07-08] MEDS: AZITHROMYCIN/NS 500 MG/250 ML 500 MG/250 ML BAG IV SCH (05:32)
[2021-07-08] MEDS: cefTRIAXone/NS 1 GM/50 ML 1 GM/50 ML BAG IV SCH (05:32)
[2021-07-08 06:41] LABS: Alanine Aminotransferase 52 units/L (7-56); Albumin 3.2 g/dL (3.9-5); BUN/Creatinine Ratio 33; Blood Urea Nitrogen 26 mg/dL (9-20); Calcium 8.8 mg/dL (8.4-10.2); Hemolysis Index 13
[2021-07-08] MEDS ORDERED: DEXTROSE 50% IN WATER (25GM) 50 ML SYRINGE IV PRN (09:30)
[2021-07-08] MEDS: dexAMETHasone 4 MG/ML VIAL IV SCH ×3 (09:58→22:48)
[2021-07-08] MEDS: ZINC SULFATE 220 MG CAP PO SCH (09:59)
[2021-07-08] MEDS: ENOXAPARIN 40 MG/0.4 ML INJ SUB-Q SCH (09:59)
[2021-07-08] MEDS: ASCORBIC ACID 500 MG TAB PO SCH (09:59)
[2021-07-08] MEDS: FUROSEMIDE 40 MG/4 ML INJ IV SCH (09:59)
[2021-07-08] MEDS: CHOLECALCIFEROL (VIT D3) 1000 UNIT (25 mcg) TAB PO SCH (09:59)
--- NOTE | 2021-07-08 10:54 | Progress Note ---
Assessment and Plan Assessment and plan: This is a 40-year-old male with no past medical history and who was recently diagnosed with COVID-19 viral infection a week ago presents to the ED with complaint of acute onset persistent shortness of breath on exertion, persistent dry cough, intermittent fever of up to 103 F, chills, lack of a ppetite, body aches and pains, and generalized fatigue and weakness for the last 1 week. Patient states that in the last 2 days his shortness of breath is worsened such that even with walking from his bed to the toilet worsen his symptoms. Checks x-ray done and it showed pneumonia. I reviewed patient medical record, lab work and vital signs. Patient has elevated D-dimer -CT of the chest has been orderedwe will follow-up with results. (1) COVID-19 virus infection Current Visit: No Status: Acute Plan to address problem: airborne and contact isolation per covid protocol Monitor inflammatory maker Chest x-ray -showed pneumonia Empiric abx therapy azithromycin and Rocephin Check procalcitonin oxygen supplement if needed Ascorbic acid, zinc sulphate and vitamin D-when tolerating oral intake Encourage the use of incentive spirometer and prone position (2) Bilateral pneumonia Current Visit: No Status: Acute Plan to address problem: Continue empiric antibiotics ABG and serial chest x-ray (3) Hyponatremia Current Visit: No Status: Acute Plan to address problem: Continue IV hydration with normal saline Monitor sodium level (4) Hypokalemia Current Visit: No Status: Acute Plan to address problem: Replace potassium Monitor electrolytes (5) Elevated d-dimer Current Visit: Yes Status: Acute Plan to address problem: D-dimer 786.[address] rule out pulmonary embolism (6) DVT prophylaxis Current Visit: No Status: Acute Plan to address problem: Lovenox subcutaneous 07/05: Patient seen and examined still with shortness of breath ID input is noted IV/PO Dexamethasone x 10 days, IV remdesivir x 5 days, ordered for management of COVID-19. Continue oxygen and wean as tolerated will consult pulmonary for assistance. Encourage prone positioning. Monitor inflammatory markers co ndition is guarded. Will reevaluate tomorrow and possible trial of Lasix therapy. In addition to IDs recommendation "if hypoxia worsens to requiring HFNC >30 L/min, given CRP >7.5, would be candidate for Actemra (depending on availability)" CT CHEST: IMPRESSION: 1. No CT evidence for pulmonary embolism. 2. Extensive bilateral pneumonia characteristic of atypical/viral pneumonia such as Covid. 3. Hepatic steatosis. 07/06: Patient continues on high flow oxygen at this time. Remdesivir and steroids initiated. We will start patient on Lasix and monitor renal function. Will check urine osmolarity to guide therapy. Patient states that he prone last night encouraged him to continue to do the same movement throughout the day. Initiate vitamins to assist in management to monitor inflammatory markers. 07/07: Continue current management. Monitor renal function with addition of Lasix. Continue steroids and remdesivir. ID and pulmonary input appreciated 07/08: Patient seen and examined, continues on High flow Gold NC at 10 liters, patient also noted to have increased Blood glucose possible secondary to steroids or underlying DM. Continue steroids and remdesivir and will add insulin coverage. Continue to prone. Continue lasix and monitor renal function History Interval history: Patient seen and examined still with shortness of breath and cough. Patient remains on 10 L of oxygen Hospitalist Physical - Physical exam Narrative exam: VITAL SIGNS: Reviewed. GENERAL: The patient appears normally developed, obese, he was lying prone this morning. Exertional dyspnea persist vital signs as documented. HEAD: No signs of head trauma. EYES: Pupils are equal. Extraocular motions intact. EARS: Hearing grossly intact. MOUTH: Oropharynx is normal. NECK: No adenopathy, no JVD. CHEST: Chest with diminished breath sounds bilaterally. No wheezes, rales, or rhonchi. CARDIAC: Regular rate and rhythm. S1 and S2, without murmurs, gallops, or rubs. VASCULAR: No Edema. Peripheral pulses normal and equal in all extremities. ABDOMEN: Soft, non tender and non distended. No rebound or guarding, and no masses palpated. Bowel Sounds normal. MUSCULOSKELETAL: Good range of motion of all major joints. Extremities without clubbing, cyanosis or edema. NEUROLOGIC EXAM: Alert and oriented x 3 No focal sensory or strength deficits. Speech normal. Follows commands. PSYCHIATRIC: Mood normal. SKIN: detail exam as documented in skin assessment - Constitutional Vitals: Temp Pulse Resp BP Pulse Ox 97.4 F L 104 H 18 133/89 92 07/08/21 05:03 07/08/21 05:03 07/08/21 05:03 07/08/21 05:03 07/08/21 08:26 HEART Score - HEART Score Troponin: Troponin T < 0.010 ng/mL (0.00-0.029) 07/04/21 03:33 Results - Labs CBC & Chem 7: 07/07/21 05:54 07/08/21 05:38 Labs: Laboratory Last Values WBC 11.3 K/mm3 (4.5-11.0) H 07/07/21 05:54 RBC 4.38 M/mm3 (3.65-5.03) 07/07/21 05:54 Hgb 14.4 gm/dl (11.8-15.2) 07/07/21 05:54 Hct 39.8 % (35.5-45.6) 07/07/21 05:54 MCV 91 fl (84-94) 07/07/21 05:54 MCH 33 pg (28-32) H 07/07/21 05:54 MCHC 36 % (32-34) H 07/07/21 05:54 RDW 13.5 % (13.2-15.2) 07/07/21 05:54 Plt Count 416 K/mm3 (140-440) 07/07/21 05:54 Lymph % (Auto) 8.0 % (13.4-35.0) L 07/04/21 03:02 D[place]y % (Auto) 5.1 % (0.0-7.3) 07/04/21 03:02 Eos % (Auto) 0.0 % (0.0-4.3) 07/04/21 03:02 Baso % (Auto) 0.5 % (0.0-1.8) 07/04/21 03:02 Lymph # (Auto) 0.8 K/mm3 (1.2-5.4) L 07/04/21 03:02 [place]y # (Auto) 0.5 K/mm3 (0.0-0.8) 07/04/21 03:02 Eos # (Auto) 0.0 K/mm3 (0.0-0.4) 07/04/21 03:02 Baso # (Auto) 0.1 K/mm3 (0.0-0.1) 07/04/21 03:02 Add Manual Diff Complete 07/05/21 05:24 Total Counted 100 07/05/21 05:24 Seg Neutrophils % 86.4 % (40.0-70.0) H 07/04/21 03:02 Seg Neuts % (Manual) 80.0 % (40.0-70.0) H 07/05/21 05:24 Band Neutrophils % 5.0 % 07/05/21 05:24 Lymphocytes % (Manual) 10.0 % (13.4-35.0) L 07/05/21 05:24 Monocytes % (Manual) 5.0 % (0.0-7.3) 07/05/21 05:24 Nucleated RBC % Not Reportable 07/05/21 05:24 Seg Neutrophils # 9.1 K/mm3 (1.8-7.7) H 07/04/21 03:02 Seg Neutrophils # Man 11.7 K/mm3 (1.8-7.7) H 07/05/21 05:24 Band Neutrophils # 0.7 K/mm3 07/05/21 05:24 Lymphocytes # (Manual) 1.5 K/mm3 (1.2-5.4) 07/05/21 05:24 Abs React Lymphs (Man) 0.0 K/mm3 07/05/21 05:24 Monocytes # (Manual) 0.7 K/mm3 (0.0-0.8) 07/05/21 05:24 Eosinophils # (Manual) 0.0 K/mm3 (0.0-0.4) 07/05/21 05:24 Basophils # (Manual) 0.0 K/mm3 (0.0-0.1) 07/05/21 05:24 Metamyelocytes # 0.0 K/mm3 07/05/21 05:24 Myelocytes # 0.0 K/mm3 07/05/21 05:24 Promyelocytes # 0.0 K/mm3 07/05/21 05:24 Blast Cells # 0.0 K/mm3 07/05/21 05:24 WBC Morphology Not Reportable 07/05/21 05:24 Hypersegmented Neuts Not Reportable 07/05/21 05:24 Hyposegmented Neuts Not Reportable 07/05/21 05:24 Hypogranular Neuts Not Reportable 07/05/21 05:24 Smudge Cells Not Reportable 07/05/21 05:24 Toxic Granulation Not Reportable 07/05/21 05:24 Toxic Vacuolation Not Reportable 07/05/21 05:24 Dohle Bodies Not Reportable 07/05/21 05:24 Pelger-Huet Anomaly Not Reportable 07/05/21 05:24 Smiley Rods Not Reportable 07/05/21 05:24 Platelet Estimate Consistent w auto 07/05/21 05:24 Clumped Platelets Not Reportable 07/05/21 05:24 Plt Clumps, EDTA Not Reportable 07/05/21 05:24 Large Platelets Not Reportable 07/05/21 05:24 Giant Platelets Not Reportable 07/05/21 05:24 Platelet Satelliting Not Reportable 07/05/21 05:24 Plt Morphology Comment Not Reportable 07/05/21 05:24 RBC Morphology Normal 07/05/21 05:24 Dimorphic RBCs Not Reportable 07/05/21 05:24 Polychromasia Not Reportable 07/05/21 05:24 Hypochromasia Not Reportable 07/05/21 05:24 Poikilocytosis Not Reportable 07/05/21 05:24 Anisocytosis Not Reportable 07/05/21 05:24 Microcytosis Not Reportable 07/05/21 05:24 Macrocytosis Not Reportable 07/05/21 05:24 Spherocytes Not Reportable 07/05/21 05:24 Pappenheimer Bodies Not Reportable 07/05/21 05:24 Sickle Cells Not Reportable 07/05/21 05:24 Target Cells Not Reportable 07/05/21 05:24 Tear Drop Cells Not Reportable 07/05/21 05:24 Ovalocytes Not Reportable 07/05/21 05:24 Helmet Cells Not Reportable 07/05/21 05:24 [place] Bodies Not Reportable 07/05/21 05:24 Nikolai Rings Not Reportable 07/05/21 05:24 Rayne Cells Not Reportable 07/05/21 05:24 Bite Cells Not Reportable 07/05/21 05:24 Crenated Cell Not Reportable 07/05/21 05:24 Elliptocytes Not Reportable 07/05/21 05:24 Acanthocytes (Spur) Not Reportable 07/05/21 05:24 Rouleaux Not Reportable 07/05/21 05:24 Hemoglobin C Crystals Not Reportable 07/05/21 05:24 Schistocytes Not Reportable 07/05/21 05:24 Malaria parasites Not Reportable 07/05/21 05:24 Frederick Bodies Not Reportable 07/05/21 05:24 Hem Pathologist Commnt No 07/05/21 05:24 D-Dimer 786.71 ng/mlDDU (0-234) H 07/04/21 03:33 Sodium 136 mmol/L (137-145) L 07/08/21 05:38 Potassium 4.1 mmol/L (3.6-5.0) 07/08/21 05:38 Chloride 99.9 mmol/L (98-107) 07/08/21 05:38 Carbon Dioxide 25 mmol/L (22-30) 07/08/21 05:38 Anion Gap 15 mmol/L 07/08/21 05:38 BUN 26 mg/dL (9-20) H 07/08/21 05:38 Creatinine 0.8 mg/dL (0.8-1.3) 07/08/21 05:38 Estimated GFR > 60 ml/min 07/08/21 05:38 BUN/Creatinine Ratio 33 % 07/08/21 05:38 Glucose 327 mg/dL (75-100) H 07/08/21 05:38 Hemoglobin A1c 7.3 % (4-6) H 07/04/21 08:29 Lactic Acid 1.70 mmol/L (0.7-2.0) 07/04/21 03:01 Calcium 8.8 mg/dL (8.4-10.2) 07/08/21 05:38 Ferritin 2452.0 ng/mL (30.0-300.0) H 07/04/21 03:33 Total Bilirubin 0.60 mg/dL (0.1-1.2) 07/08/21 05:38 AST 28 units/L (5-40) 07/08/21 05:38 ALT 52 units/L (7-56) 07/08/21 05:38 Alkaline Phosphatase 71 units/L (35-129) 07/08/21 05:38 Lactate Dehydrogenase 759 units/L (91-180) H 07/04/21 03:33 Total Creatine Kinase 194 units/L (55-170) H 07/04/21 03:33 Troponin T < 0.010 ng/mL (0.00-0.029) 07/04/21 03:33 C-Reactive Protein 24.40 mg/dL (0.00-1.30) H 07/04/21 03:33 Total Protein 7.2 g/dL (6.3-8.2) 07/08/21 05:38 Albumin 3.2 g/dL (3.9-5) L 07/08/21 05:38 Albumin/Globulin Ratio 0.8 % 07/08/21 05:38 Procalcitonin 0.70 ng/mL (<0.15) 07/04/21 03:33 Urine Osmolality 775 Mosm/kg 07/07/21 17:15 Coronavirus (PCR) Positive (Negative) A 07/04/21 09:40 Microbiology: Microbiology 07/04/21 02:57 Peripheral/Venous Blood Culture - Preliminary NO GROWTH AFTER 4 DAYS 07/04/21 03:01 Peripheral/Venous Blood Culture - Preliminary NO GROWTH AFTER 4 DAYS Moore/IV: Voiding Method Toilet Active Medications - Current Medications Current Medications: Generic Name Dose Route Start Last Admin Trade Name Freq PRN Reason Stop Dose Admin Acetaminophen 650 mg 07/04/21 04:11 Acetaminophen 325 Mg Tab PO Q4H PRN Pain MILD(1-3)/Fever >100.5/BURGOS Al Hydrox/Mg Hydrox/Simethicone 30 ml 07/04/21 04:11 Alum-Mag Hydroxide-Simethicone 353-479-26um/5ml Oral Liqd 30 Ml PO Q4H PRN Indigestion Ascorbic Acid 500 mg 07/04/21 10:00 07/08/21 09:59 Ascorbic Acid 500 Mg Tab PO 500 mg QDAY [place] Administration Cholecalciferol 1,000 unit 07/04/21 10:00 07/08/21 09:59 Cholecalciferol (Vit D3) 1000 Unit (25 Mcg) Tab PO 1,000 unit QDAY [place] Administration Dexamethasone 6 mg 07/06/21 10:45 07/08/21 09:58 Dexamethasone 4 Mg/Ml Vial IV 07/14/21 10:59 6 mg Q12HR [place] Administration Dextrose 50 ml 07/08/21 09:30 Dextrose 50% In Water (25gm) 50 Ml Syringe IV Q30MIN PRN Hypoglycemia Protocol Enoxaparin Sodium 40 mg 07/04/21 10:00 07/08/21 09:59 Enoxaparin 40 Mg/0.4 Ml Inj SUB-Q 40 mg QDAY [place] Administration REMDESIVIR 100 mg/ Sodium 250 mls @ 500 mls/hr 07/06/21 21:00 07/08/21 00:00 Chloride IV 07/09/21 21:29 500 mls/hr Q24HR@2100 [place] Administration Insulin Glargine 20 units 07/08/21 22:00 Insulin Glargine 100 Units/Ml SUB-Q QHS [place] Insulin Human Lispro 0 unit 07/08/21 11:30 Insulin Lispro 100 Unit/Ml SUB-Q ACHS [facility] Protocol Magnesium Hydroxide 30 ml 07/04/21 04:11 Magnesium Hydroxide (Mom) Oral Liqd Udc PO Q4H PRN Constipation Metoclopramide HCl 10 mg 07/04/21 04:11 Metoclopramide 10 Mg/2 Ml Inj IV Q6H PRN Nausea And Vomiting Morphine Sulfate 2 mg 07/04/21 04:11 Morphine 2 Mg/1 Ml Inj IV Q4H PRN Pain, Moderate (4-6) Morphine Sulfate 4 mg 07/04/21 04:11 Morphine 4 Mg/1 Ml Inj IV Q4H PRN Pain , Severe (7-10) Naloxone HCl 0.1 mg 07/04/21 04:11 Naloxone 0.4 Mg/1 Ml Inj IV Q2MIN PRN Res Rate </= 8 or 02 SAT < 92% Ondansetron HCl 4 mg 07/04/21 04:11 Ondansetron 4 Mg/2 Ml Inj IV Q8H PRN Nausea And Vomiting Oxycodone/Acetaminophen 1 tab 07/04/21 04:11 Oxycodone /Acetaminophen 5-325mg Tab PO Q6H PRN Pain, Moderate (4-6) Senna 8.6 mg 07/04/21 04:11 Sennosides 8.6 Mg Tab PO Q12HR PRN Constipation Sodium Chloride 10 ml 07/04/21 10:00 07/08/21 10:00 Sodium Chloride 0.9% 10 Ml Flush Syringe IV 10 ml BID [place] Administration Sodium Chloride 50 ml 07/05/21 14:30 07/08/21 00:03 Sodium Chloride 0.9% 50 Ml Ivpb IV 07/09/21 21:01 50 ml Q24HR@2100 [place] Administration Zinc Sulfate 220 mg 07/04/21 10:00 07/08/21 09:59 Zinc Sulfate 220 Mg Cap PO 220 mg QDAY [place] Administration
[2021-07-08] MEDS: INSULIN LISPRO 100 UNIT/ML SUB-Q SCH ×3 (11:30→22:45)
--- NOTE | 2021-07-08 13:31 | Progress Note ---
Assessment and Plan 40 y/o obese male admitted with COVID 19 pneumonia and acute respiratory failure 07/08/21: Prone, steroids. Got lasix today. Prognosis remains guarded 07/07/21: No new recs. See below. 1. Prone if able and for as long as possible 2. Consider increasing steroids to at least BID 3. Will stop IVF's as lungs need to be kept as dry as possible 4. Consider PRN lasix use 5. Abx therapy per ID 6. Guarded prognosis. Subjective Date of service: 07/08/21 Interval history: Still on 10 liters, marginal sats. Objective Vital Signs - 12hr 07/08/21 07/08/21 07/08/21 02:49 05:03 08:26 Temperature 97.4 F L Pulse Rate 104 H Respiratory 18 Rate Blood Pressure 133/89 O2 Sat by Pulse 92 92 92 Oximetry 07/08/21 07/08/21 10:00 11:23 Temperature 98.2 F Pulse Rate 117 H Respiratory 19 Rate Blood Pressure 126/84 O2 Sat by Pulse 92 93 Oximetry CBC and BMP: 07/07/21 05:54 07/08/21 05:38 ABG, PT/INR, D-dimer: PT/INR, D-dimer D-Dimer 786.71 ng/mlDDU (0-234) H 07/04/21 03:33 Abnormal lab findings: Abnormal Labs 07/04/21 07/04/21 07/04/21 03:01 03:02 03:33 WBC MCH MCHC 35 H RDW 13.1 L Lymph % (Auto) 8.0 L Lymph # (Auto) 0.8 L Seg Neutrophils % 86.4 H Seg Neuts % (Manual) Lymphocytes % (Manual) Seg Neutrophils # 9.1 H Seg Neutrophils # Man D-Dimer 786.71 H Sodium 134 L Potassium 3.3 L Chloride 94.9 L BUN Creatinine Glucose 167 H Hemoglobin A1c Calcium Ferritin AST 70 H Lactate Dehydrogenase Total Creatine Kinase C-Reactive Protein Albumin 3.6 L Coronavirus (PCR) 07/04/21 07/04/21 07/04/21 03:33 03:33 08:29 WBC MCH MCHC RDW Lymph % (Auto) Lymph # (Auto) Seg Neutrophils % Seg Neuts % (Manual) Lymphocytes % (Manual) Seg Neutrophils # Seg Neutrophils # Man D-Dimer Sodium 131 L Potassium Chloride 96.0 L BUN Creatinine Glucose 156 H 182 H Hemoglobin A1c Calcium 7.7 L Ferritin 2452.0 H AST Lactate Dehydrogenase 759 H Total Creatine Kinase 194 H C-Reactive Protein 24.40 H Albumin Coronavirus (PCR) 07/04/21 07/04/21 07/05/21 08:29 09:40 05:24 WBC 14.6 H MCH MCHC 35 H RDW Lymph % (Auto) Lymph # (Auto) Seg Neutrophils % Seg Neuts % (Manual) 80.0 H Lymphocytes % (Manual) 10.0 L Seg Neutrophils # Seg Neutrophils # Man 11.7 H D-Dimer Sodium Potassium Chloride BUN Creatinine Glucose Hemoglobin A1c 7.3 H Calcium Ferritin AST Lactate Dehydrogenase Total Creatine Kinase C-Reactive Protein Albumin Coronavirus (PCR) Positive A 07/05/21 07/05/21 07/06/21 05:24 13:31 05:35 WBC MCH MCHC RDW Lymph % (Auto) Lymph # (Auto) Seg Neutrophils % Seg Neuts % (Manual) Lymphocytes % (Manual) Seg Neutrophils # Seg Neutrophils # Man D-Dimer Sodium Potassium Chloride BUN Creatinine 0.7 L 0.6 L 0.7 L Glucose 197 H 190 H 195 H Hemoglobin A1c Calcium 8.1 L Ferritin AST 51 H 57 H 41 H Lactate Dehydrogenase Total Creatine Kinase C-Reactive Protein Albumin 3.1 L 2.9 L 2.8 L Coronavirus (PCR) 07/07/21 07/07/21 07/08/21 05:54 05:54 05:38 WBC 11.3 H MCH 33 H MCHC 36 H RDW Lymph % (Auto) Lymph # (Auto) Seg Neutrophils % Seg Neuts % (Manual) Lymphocytes % (Manual) Seg Neutrophils # Seg Neutrophils # Man D-Dimer Sodium 136 L Potassium Chloride BUN 23 H 26 H Creatinine 0.7 L Glucose 266 H 327 H Hemoglobin A1c Calcium Ferritin AST Lactate Dehydrogenase Total Creatine Kinase C-Reactive Protein Albumin 3.3 L 3.2 L Coronavirus (PCR)
--- NOTE | 2021-07-08 14:31 | Progress Note ---
Assessment and Plan Cultures: SARS CoV2 PCR: Positive 07/04/2021 blood culture: No growth A/P: 40/M with: #Bilateral pneumonia: secondary to COVID-19: severe disease. Completed 5 days of empiric abx due to moderate procalcitonin #Acute hypoxic respiratory failure: Requiring Salter nasal cannula. Recs: continue IV/PO Dexamethasone x 10 days, agree with higher dose given severity of disease continue IV remdesivir x 5 days if hypoxia worsens to requiring HFNC >30 L/min, given CRP >7.5, would be candidate for Actemra (depending on availability) prophylactic anticoagulation based on d-dimer per hospital protocol trend d-dimer, CRP every 2-3 days guarded prognosis ID will sign off. Please reconsult if needed. Katelyn Hernandez MD, FACP [facility] ([facility] O: [phone] F: [phone] Subjective Date of service: 07/08/21 Interval history: No fever. Remains on oxygen by Salter nasal cannula. Objective - Exam Narrative Exam: Physical Exam (reviewed in chart to minimize risk of transmission) Constitutional: deferred Head, Ears, Nose: deferred Eyes: deferred Neck: deferred Oral: deferred Cardiovascular: deferred Respiratory: deferred GI: deferred Musculoskeletal: deferred Skin: deferred Hem/Lymphatic: deferred Psych: deferred Neurological: deferred - Constitutional Vitals: Vital Signs Temp Pulse Resp BP Pulse Ox 98.2 F 117 H 19 126/84 93 07/08/21 11:23 07/08/21 11:23 07/08/21 11:23 07/08/21 11:23 07/08/21 14:13 Temperature -Last 24 Hours Temperature 98.2 F Temperature 97.4 F Temperature 97.8 F Temperature 97.6 F - Labs CBC & Chem 7: 07/07/21 05:54 07/08/21 05:38 Labs: Abnormal lab results 07/08/21 Range/Units 05:38 Sodium 136 L (137-145) mmol/L BUN 26 H (9-20) mg/dL Glucose 327 H (75-100) mg/dL Albumin 3.2 L (3.9-5) g/dL
[2021-07-08] MEDS ORDERED: INSULIN GLARGINE 100 UNITS/ML SUB-Q SCH (22:00)
[2021-07-08] MEDS: REMDESIVIR 100 MG in SODIUM CHLORIDE 0.9% 250ML 250 ML IV SCH ×2 (22:48)
[2021-07-09] MEDS: INSULIN LISPRO 100 UNIT/ML SUB-Q SCH ×4 (07:30→21:44)
[2021-07-09] MEDS: dexAMETHasone 4 MG/ML VIAL IV SCH ×2 (10:04→21:41)
[2021-07-09] MEDS: CHOLECALCIFEROL (VIT D3) 1000 UNIT (25 mcg) TAB PO SCH (10:04)
[2021-07-09] MEDS: ASCORBIC ACID 500 MG TAB PO SCH (10:04)
[2021-07-09] MEDS: ZINC SULFATE 220 MG CAP PO SCH (10:04)
[2021-07-09] MEDS: ENOXAPARIN 100 MG/1 ML INJ SUB-Q SCH ×2 (10:20→21:42)
[2021-07-09] MEDS: FUROSEMIDE 40 MG/4 ML INJ IV SCH (10:20)
--- NOTE | 2021-07-09 10:35 | Progress Note ---
Assessment and Plan 40 y/o obese male admitted with COVID 19 pneumonia and acute respiratory failure 07/09/21: Prone, steroids. On daily lasix. Continue to wean for sats >88%. Guarded prognosis 07/08/21: Prone, steroids. Got lasix today. Prognosis remains guarded 07/07/21: No new recs. See below. 1. Prone if able and for as long as possible 2. Consider increasing steroids to at least BID 3. Will stop IVF's as lungs need to be kept as dry as possible 4. Consider PRN lasix use 5. Abx therapy per ID 6. Guarded prognosis. Subjective Date of service: 07/09/21 Interval history: Dropped to 8 liters salter overnight. Good sats. Tolerating lasix and steroids and Remdesivir. Objective Vital Signs - 12hr 07/08/21 07/09/21 07/09/21 23:41 02:51 04:47 Temperature 98.2 F 97.6 F Pulse Rate 83 85 Respiratory 18 18 Rate Blood Pressure 145/92 125/78 O2 Sat by Pulse 94 94 90 Oximetry CBC and BMP: 07/07/21 05:54 07/08/21 05:38 ABG, PT/INR, D-dimer: PT/INR, D-dimer D-Dimer 1728.55 ng/mlDDU (0-234) H 07/09/21 07:50 Abnormal lab findings: Abnormal Labs 07/04/21 07/04/21 07/04/21 03:01 03:02 03:33 WBC MCH MCHC 35 H RDW 13.1 L Lymph % (Auto) 8.0 L Lymph # (Auto) 0.8 L Seg Neutrophils % 86.4 H Seg Neuts % (Manual) Lymphocytes % (Manual) Seg Neutrophils # 9.1 H Seg Neutrophils # Man D-Dimer 786.71 H Sodium 134 L Potassium 3.3 L Chloride 94.9 L BUN Creatinine Glucose 167 H POC Glucose Hemoglobin A1c Calcium Ferritin AST 70 H Lactate Dehydrogenase Total Creatine Kinase C-Reactive Protein Albumin 3.6 L Coronavirus (PCR) 07/04/21 07/04/21 07/04/21 03:33 03:33 08:29 WBC MCH MCHC RDW Lymph % (Auto) Lymph # (Auto) Seg Neutrophils % Seg Neuts % (Manual) Lymphocytes % (Manual) Seg Neutrophils # Seg Neutrophils # Man D-Dimer Sodium 131 L Potassium Chloride 96.0 L BUN Creatinine Glucose 156 H 182 H POC Glucose Hemoglobin A1c Calcium 7.7 L Ferritin 2452.0 H AST Lactate Dehydrogenase 759 H Total Creatine Kinase 194 H C-Reactive Protein 24.40 H Albumin Coronavirus (PCR) 07/04/21 07/04/21 07/05/21 08:29 09:40 05:24 WBC 14.6 H MCH MCHC 35 H RDW Lymph % (Auto) Lymph # (Auto) Seg Neutrophils % Seg Neuts % (Manual) 80.0 H Lymphocytes % (Manual) 10.0 L Seg Neutrophils # Seg Neutrophils # Man 11.7 H D-Dimer Sodium Potassium Chloride BUN Creatinine Glucose POC Glucose Hemoglobin A1c 7.3 H Calcium Ferritin AST Lactate Dehydrogenase Total Creatine Kinase C-Reactive Protein Albumin Coronavirus (PCR) Positive A 07/05/21 07/05/21 07/06/21 05:24 13:31 05:35 WBC MCH MCHC RDW Lymph % (Auto) Lymph # (Auto) Seg Neutrophils % Seg Neuts % (Manual) Lymphocytes % (Manual) Seg Neutrophils # Seg Neutrophils # Man D-Dimer Sodium Potassium Chloride BUN Creatinine 0.7 L 0.6 L 0.7 L Glucose 197 H 190 H 195 H POC Glucose Hemoglobin A1c Calcium 8.1 L Ferritin AST 51 H 57 H 41 H Lactate Dehydrogenase Total Creatine Kinase C-Reactive Protein Albumin 3.1 L 2.9 L 2.8 L Coronavirus (PCR) 07/07/21 07/07/21 07/08/21 05:54 05:54 05:38 WBC 11.3 H MCH 33 H MCHC 36 H RDW Lymph % (Auto) Lymph # (Auto) Seg Neutrophils % Seg Neuts % (Manual) Lymphocytes % (Manual) Seg Neutrophils # Seg Neutrophils # Man D-Dimer Sodium 136 L Potassium Chloride BUN 23 H 26 H Creatinine 0.7 L Glucose 266 H 327 H POC Glucose Hemoglobin A1c Calcium Ferritin AST Lactate Dehydrogenase Total Creatine Kinase C-Reactive Protein Albumin 3.3 L 3.2 L Coronavirus (PCR) 07/08/21 07/08/21 07/09/21 16:34 20:57 07:30 WBC MCH MCHC RDW Lymph % (Auto) Lymph # (Auto) Seg Neutrophils % Seg Neuts % (Manual) Lymphocytes % (Manual) Seg Neutrophils # Seg Neutrophils # Man D-Dimer Sodium Potassium Chloride BUN Creatinine Glucose POC Glucose 358 H 277 H 237 H Hemoglobin A1c Calcium Ferritin AST Lactate Dehydrogenase Total Creatine Kinase C-Reactive Protein Albumin Coronavirus (PCR) 07/09/21 07:50 WBC MCH MCHC RDW Lymph % (Auto) Lymph # (Auto) Seg Neutrophils % Seg Neuts % (Manual) Lymphocytes % (Manual) Seg Neutrophils # Seg Neutrophils # Man D-Dimer 1728.55 H Sodium Potassium Chloride BUN Creatinine Glucose POC Glucose Hemoglobin A1c Calcium Ferritin AST Lactate Dehydrogenase Total Creatine Kinase C-Reactive Protein Albumin Coronavirus (PCR)
--- NOTE | 2021-07-09 14:11 | Progress Note ---
Assessment and Plan Assessment and plan: This is a 40-year-old male with no past medical history and who was recently diagnosed with COVID-19 viral infection a week ago presents to the ED with complaint of acute onset persistent shortness of breath on exertion, persistent dry cough, intermittent fever of up to 103 F, chills, lack of a ppetite, body aches and pains, and generalized fatigue and weakness for the last 1 week. Patient states that in the last 2 days his shortness of breath is worsened such that even with walking from his bed to the toilet worsen his symptoms. Checks x-ray done and it showed pneumonia. I reviewed patient medical record, lab work and vital signs. Patient has elevated D-dimer -CT of the chest has been orderedwe will follow-up with results. (1) COVID-19 virus infection Current Visit: No Status: Acute Plan to address problem: airborne and contact isolation per covid protocol Monitor inflammatory maker Chest x-ray -showed pneumonia Empiric abx therapy azithromycin and Rocephin Check procalcitonin oxygen supplement if needed Ascorbic acid, zinc sulphate and vitamin D-when tolerating oral intake Encourage the use of incentive spirometer and prone position (2) Bilateral pneumonia Current Visit: No Status: Acute Plan to address problem: Continue empiric antibiotics ABG and serial chest x-ray (3) Hyponatremia Current Visit: No Status: Acute Plan to address problem: Continue IV hydration with normal saline Monitor sodium level (4) Hypokalemia Current Visit: No Status: Acute Plan to address problem: Replace potassium Monitor electrolytes (5) Elevated d-dimer Current Visit: Yes Status: Acute Plan to address problem: D-dimer 786.[address] rule out pulmonary embolism (6) DVT prophylaxis Current Visit: No Status: Acute Plan to address problem: Lovenox subcutaneous 07/05: Patient seen and examined still with shortness of breath ID input is noted IV/PO Dexamethasone x 10 days, IV remdesivir x 5 days, ordered for management of COVID-19. Continue oxygen and wean as tolerated will consult pulmonary for assistance. Encourage prone positioning. Monitor inflammatory markers co ndition is guarded. Will reevaluate tomorrow and possible trial of Lasix therapy. In addition to IDs recommendation "if hypoxia worsens to requiring HFNC >30 L/min, given CRP >7.5, would be candidate for Actemra (depending on availability)" CT CHEST: IMPRESSION: 1. No CT evidence for pulmonary embolism. 2. Extensive bilateral pneumonia characteristic of atypical/viral pneumonia such as Covid. 3. Hepatic steatosis. 07/06: Patient continues on high flow oxygen at this time. Remdesivir and steroids initiated. We will start patient on Lasix and monitor renal function. Will check urine osmolarity to guide therapy. Patient states that he prone last night encouraged him to continue to do the same movement throughout the day. Initiate vitamins to assist in management to monitor inflammatory markers. 07/07: Continue current management. Monitor renal function with addition of Lasix. Continue steroids and remdesivir. ID and pulmonary input appreciated 07/08: Patient seen and examined, continues on High flow Gold NC at 10 liters, patient also noted to have increased Blood glucose possible secondary to steroids or underlying DM. Continue steroids and remdesivir and will add insulin coverage. Continue to prone. Continue lasix and monitor renal function 07/09: Patient seen and examined, reports some improvement, will continue to treat as tolerated. patient has been weaned down to 5 liters of oxygen sating 93% but with increased work of heart rate. He said he has just walked around. Continue steroids therapy, Continue Remdesivir. Encourage Proning as patient has been doing. History Interval history: Patient seen and examined still with shortness of breath and cough. Patient now down to 5 L of oxygen, States he is doing better. Hospitalist Physical - Physical exam Narrative exam: VITAL SIGNS: Reviewed. GENERAL: The patient appears normally developed, obese, he was lying prone this morning. Exertional dyspnea persist vital signs as documented. HEAD: No signs of head trauma. EYES: Pupils are equal. Extraocular motions intact. EARS: Hearing grossly intact. MOUTH: Oropharynx is normal. NECK: No adenopathy, no JVD. CHEST: Chest with diminished breath sounds bilaterally. No wheezes, rales, or rhonchi. CARDIAC: Regular rate and rhythm. S1 and S2, without murmurs, gallops, or rub s. VASCULAR: No Edema. Peripheral pulses normal and equal in all extremities. ABDOMEN: Soft, non tender and non distended. No rebound or guarding, and no masses palpated. Bowel Sounds normal. MUSCULOSKELETAL: Good range of motion of all major joints. Extremities without clubbing, cyanosis or edema. NEUROLOGIC EXAM: Alert and oriented x 3 No focal sensory or strength deficits. Speech normal. Follows commands. PSYCHIATRIC: Mood normal. SKIN: detail exam as documented in skin assessment - Constitutional Vitals: Temp Pulse Resp BP Pulse Ox 97.6 F 85 18 125/78 96 07/09/21 04:47 07/09/21 04:47 07/09/21 04:47 07/09/21 04:47 07/09/21 10:45 HEART Score - HEART Score Troponin: Troponin T < 0.010 ng/mL (0.00-0.029) 07/04/21 03:33 Results - Labs CBC & Chem 7: 07/07/21 05:54 07/08/21 05:38 Labs: Laboratory Last Values WBC 11.3 K/mm3 (4.5-11.0) H 07/07/21 05:54 RBC 4.38 M/mm3 (3.65-5.03) 07/07/21 05:54 Hgb 14.4 gm/dl (11.8-15.2) 07/07/21 05:54 Hct 39.8 % (35.5-45.6) 07/07/21 05:54 MCV 91 fl (84-94) 07/07/21 05:54 MCH 33 pg (28-32) H 07/07/21 05:54 MCHC 36 % (32-34) H 07/07/21 05:54 RDW 13.5 % (13.2-15.2) 07/07/21 05:54 Plt Count 416 K/mm3 (140-440) 07/07/21 05:54 Lymph % (Auto) 8.0 % (13.4-35.0) L 07/04/21 03:02 [place] % (Auto) 5.1 % (0.0-7.3) 07/04/21 03:02 Eos % (Auto) 0.0 % (0.0-4.3) 07/04/21 03:02 Baso % (Auto) 0.5 % (0.0-1.8) 07/04/21 03:02 Lymph # (Auto) 0.8 K/mm3 (1.2-5.4) L 07/04/21 03:02 [place] # (Auto) 0.5 K/mm3 (0.0-0.8) 07/04/21 03:02 Eos # (Auto) 0.0 K/mm3 (0.0-0.4) 07/04/21 03:02 Baso # (Auto) 0.1 K/mm3 (0.0-0.1) 07/04/21 03:02 Add Manual Diff Complete 07/05/21 05:24 Total Counted 100 07/05/21 05:24 Seg Neutrophils % 86.4 % (40.0-70.0) H 07/04/21 03:02 Seg Neuts % (Manual) 80.0 % (40.0-70.0) H 07/05/21 05:24 Band Neutrophils % 5.0 % 07/05/21 05:24 Lymphocytes % (Manual) 10.0 % (13.4-35.0) L 07/05/21 05:24 Monocytes % (Manual) 5.0 % (0.0-7.3) 07/05/21 05:24 Nucleated RBC % Not Reportable 07/05/21 05:24 Seg Neutrophils # 9.1 K/mm3 (1.8-7.7) H 07/04/21 03:02 Seg Neutrophils # Man 11.7 K/mm3 (1.8-7.7) H 07/05/21 05:24 Band Neutrophils # 0.7 K/mm3 07/05/21 05:24 Lymphocytes # (Manual) 1.5 K/mm3 (1.2-5.4) 07/05/21 05:24 Abs React Lymphs (Man) 0.0 K/mm3 07/05/21 05:24 Monocytes # (Manual) 0.7 K/mm3 (0.0-0.8) 07/05/21 05:24 Eosinophils # (Manual) 0.0 K/mm3 (0.0-0.4) 07/05/21 05:24 Basophils # (Manual) 0.0 K/mm3 (0.0-0.1) 07/05/21 05:24 Metamyelocytes # 0.0 K/mm3 07/05/21 05:24 Myelocytes # 0.0 K/mm3 07/05/21 05:24 Promyelocytes # 0.0 K/mm3 07/05/21 05:24 Blast Cells # 0.0 K/mm3 07/05/21 05:24 WBC Morphology Not Reportable 07/05/21 05:24 Hypersegmented Neuts Not Reportable 07/05/21 05:24 Hyposegmented Neuts Not Reportable 07/05/21 05:24 Hypogranular Neuts Not Reportable 07/05/21 05:24 Smudge Cells Not Reportable 07/05/21 05:24 Toxic Granulation Not Reportable 07/05/21 05:24 Toxic Vacuolation Not Reportable 07/05/21 05:24 Dohle Bodies Not Reportable 07/05/21 05:24 Pelger-Huet Anomaly Not Reportable 07/05/21 05:24 Smiley Rods Not Reportable 07/05/21 05:24 Platelet Estimate Consistent w auto 07/05/21 05:24 Clumped Platelets Not Reportable 07/05/21 05:24 Plt Clumps, EDTA Not Reportable 07/05/21 05:24 Large Platelets Not Reportable 07/05/21 05:24 Giant Platelets Not Reportable 07/05/21 05:24 Platelet Satelliting Not Reportable 07/05/21 05:24 Plt Morphology Comment Not Reportable 07/05/21 05:24 RBC Morphology Normal 07/05/21 05:24 Dimorphic RBCs Not Reportable 07/05/21 05:24 Polychromasia Not Reportable 07/05/21 05:24 Hypochromasia Not Reportable 07/05/21 05:24 Poikilocytosis Not Reportable 07/05/21 05:24 Anisocytosis Not Reportable 07/05/21 05:24 Microcytosis Not Reportable 07/05/21 05:24 Macrocytosis Not Reportable 07/05/21 05:24 Spherocytes Not Reportable 07/05/21 05:24 Pappenheimer Bodies Not Reportable 07/05/21 05:24 Sickle Cells Not Reportable 07/05/21 05:24 Target Cells Not Reportable 07/05/21 05:24 Tear Drop Cells Not Reportable 07/05/21 05:24 Ovalocytes Not Reportable 07/05/21 05:24 Helmet Cells Not Reportable 07/05/21 05:24 [place] Bodies Not Reportable 07/05/21 05:24 [place] Rings Not Reportable 07/05/21 05:24 [place] Cells Not Reportable 07/05/21 05:24 Bite Cells Not Reportable 07/05/21 05:24 Crenated Cell Not Reportable 07/05/21 05:24 Elliptocytes Not Reportable 07/05/21 05:24 Acanthocytes (Spur) Not Reportable 07/05/21 05:24 Rouleaux Not Reportable 07/05/21 05:24 Hemoglobin C Crystals Not Reportable 07/05/21 05:24 Schistocytes Not Reportable 07/05/21 05:24 Malaria parasites Not Reportable 07/05/21 05:24 [place] Bodies Not Reportable 07/05/21 05:24 Hem Pathologist Commnt No 07/05/21 05:24 D-Dimer 1728.55 ng/mlDDU (0-234) H 07/09/21 07:50 Sodium 136 mmol/L (137-145) L 07/08/21 05:38 Potassium 4.1 mmol/L (3.6-5.0) 07/08/21 05:38 Chloride 99.9 mmol/L (98-107) 07/08/21 05:38 Carbon Dioxide 25 mmol/L (22-30) 07/08/21 05:38 Anion Gap 15 mmol/L 07/08/21 05:38 BUN 26 mg/dL (9-20) H 07/08/21 05:38 Creatinine 0.8 mg/dL (0.8-1.3) 07/08/21 05:38 Estimated GFR > 60 ml/min 07/08/21 05:38 BUN/Creatinine Ratio 33 % 07/08/21 05:38 Glucose 327 mg/dL (75-100) H 07/08/21 05:38 POC Glucose 298 mg/dL (70-105) H 07/09/21 11:40 Hemoglobin A1c 7.3 % (4-6) H 07/04/21 08:29 Lactic Acid 1.70 mmol/L (0.7-2.0) 07/04/21 03:01 Calcium 8.8 mg/dL (8.4-10.2) 07/08/21 05:38 Ferritin 2452.0 ng/mL (30.0-300.0) H 07/04/21 03:33 Total Bilirubin 0.60 mg/dL (0.1-1.2) 07/08/21 05:38 AST 28 units/L (5-40) 07/08/21 05:38 ALT 52 units/L (7-56) 07/08/21 05:38 Alkaline Phosphatase 71 units/L (35-129) 07/08/21 05:38 Lactate Dehydrogenase 759 units/L (91-180) H 07/04/21 03:33 Total Creatine Kinase 194 units/L (55-170) H 07/04/21 03:33 Troponin T < 0.010 ng/mL (0.00-0.029) 07/04/21 03:33 C-Reactive Protein 1.20 mg/dL (0.00-1.30) 07/09/21 07:50 Total Protein 7.2 g/dL (6.3-8.2) 07/08/21 05:38 Albumin 3.2 g/dL (3.9-5) L 07/08/21 05:38 Albumin/Globulin Ratio 0.8 % 07/08/21 05:38 Procalcitonin 0.70 ng/mL (<0.15) 07/04/21 03:33 Urine Osmolality 775 Mosm/kg 07/07/21 17:15 Coronavirus (PCR) Positive (Negative) A 07/04/21 09:40 Microbiology: Microbiology 07/04/21 02:57 Peripheral/Venous Blood Culture - Final NO GROWTH AFTER 5 DAYS 07/04/21 03:01 Peripheral/Venous Blood Culture - Final NO GROWTH AFTER 5 DAYS Moore/IV: Voiding Method Toilet Active Medications - Current Medications Current Medications: Generic Name Dose Route Start Last Admin Trade Name Freq PRN Reason Stop Dose Admin Acetaminophen 650 mg 07/04/21 04:11 Acetaminophen 325 Mg Tab PO Q4H PRN Pain MILD(1-3)/Fever >100.5/[place] Al Hydrox/Mg Hydrox/Simethicone 30 ml 07/04/21 04:11 Alum-Mag Hydroxide-Simethicone [id number]/5ml Oral Liqd 30 Ml PO Q4H PRN Indigestion Ascorbic Acid 500 mg 07/04/21 10:00 07/09/21 10:04 Ascorbic Acid 500 Mg Tab PO 500 mg QDAY [place] Administration Cholecalciferol 1,000 unit 07/04/21 10:00 07/09/21 10:04 Cholecalciferol (Vit D3) 1000 Unit (25 Mcg) Tab PO 1,000 unit QDAY [place] Administration Dexamethasone 6 mg 07/06/21 10:45 07/09/21 10:04 Dexamethasone 4 Mg/Ml Vial IV 07/14/21 10:59 6 mg Q12HR [place] Administration Dextrose 50 ml 07/08/21 09:30 Dextrose 50% In Water (25gm) 50 Ml Syringe IV Q30MIN PRN Hypoglycemia Protocol Enoxaparin Sodium 90 mg 07/09/21 10:00 07/09/21 10:20 Enoxaparin 100 Mg/1 Ml Inj SUB-Q 90 mg Q12HR [place] Administration Protocol Furosemide 40 mg 07/09/21 10:00 07/09/21 10:20 Furosemide 40 Mg/4 Ml Inj IV 07/11/21 10:01 40 mg QDAY [place] Administration REMDESIVIR 100 mg/ Sodium 250 mls @ 500 mls/hr 07/06/21 21:00 07/08/21 22:48 Chloride IV 07/09/21 21:29 500 mls/hr Q24HR@2100 [place] Administration Insulin Glargine 30 units 07/09/21 18:00 Insulin Glargine 100 Units/Ml SUB-Q QPM [place] Insulin Human Lispro 0 unit 07/08/21 11:30 07/09/21 11:30 Insulin Lispro 100 Unit/Ml SUB-Q 6 unit ACHS [facility] Administration Protocol Magnesium Hydroxide 30 ml 07/04/21 04:11 Magnesium Hydroxide (Mom) Oral Liqd Udc PO Q4H PRN Constipation Metoclopramide HCl 10 mg 07/04/21 04:11 Metoclopramide 10 Mg/2 Ml Inj IV Q6H PRN Nausea And Vomiting Morphine Sulfate 2 mg 07/04/21 04:11 Morphine 2 Mg/1 Ml Inj IV Q4H PRN Pain, Moderate (4-6) Morphine Sulfate 4 mg 07/04/21 04:11 Morphine 4 Mg/1 Ml Inj IV Q4H PRN Pain , Severe (7-10) Naloxone HCl 0.1 mg 07/04/21 04:11 Naloxone 0.4 Mg/1 Ml Inj IV Q2MIN PRN Res Rate </= 8 or 02 SAT < 92% Ondansetron HCl 4 mg 07/04/21 04:11 Ondansetron 4 Mg/2 Ml Inj IV Q8H PRN Nausea And Vomiting Oxycodone/Acetaminophen 1 tab 07/04/21 04:11 Oxycodone /Acetaminophen 5-325mg Tab PO Q6H PRN Pain, Moderate (4-6) Senna 8.6 mg 07/04/21 04:11 Sennosides 8.6 Mg Tab PO Q12HR PRN Constipation Sodium Chloride 10 ml 07/04/21 10:00 07/09/21 10:06 Sodium Chloride 0.9% 10 Ml Flush Syringe IV 10 ml BID [place] Administration Sodium Chloride 50 ml 07/05/21 14:30 07/08/21 23:42 Sodium Chloride 0.9% 50 Ml Ivpb IV 07/09/21 21:01 50 ml Q24HR@2100 [place] Administration Zinc Sulfate 220 mg 07/04/21 10:00 07/09/21 10:04 Zinc Sulfate 220 Mg Cap PO 220 mg QDAY [place] Administration
[2021-07-09] MEDS: INSULIN GLARGINE 100 UNITS/ML SUB-Q SCH (17:49)
[2021-07-09] MEDS: SODIUM CHLORIDE 0.9% 50 ML IVPB IV SCH (21:41)
[2021-07-09] MEDS: REMDESIVIR 100 MG in SODIUM CHLORIDE 0.9% 250ML 250 ML IV SCH (21:41)
[2021-07-10 06:46] LABS: Hematocrit 42.2 % (35.5-45.6); Hemoglobin 14.6 gm/dl (11.8-15.2); Mean Corpuscular HGB Conc 35 % (32-34); Mean Corpuscular Volume 90 fl (84-94); Platelet Count 630 K/mm3 (140-440); Red Blood Count 4.67 M/mm3 (3.65-5.03); Red Cell Distribution Width 13.7 % (13.2-15.2)
[2021-07-10 07:02] LABS: Alanine Aminotransferase 63 units/L (7-56); Albumin 3.2 g/dL (3.9-5); BUN/Creatinine Ratio 29; Blood Urea Nitrogen 29 mg/dL (9-20); Calcium 8.7 mg/dL (8.4-10.2); Hemolysis Index 6
[2021-07-10] MEDS: INSULIN LISPRO 100 UNIT/ML SUB-Q SCH ×4 (07:30→22:59)
[2021-07-10] MEDS: FUROSEMIDE 40 MG/4 ML INJ IV SCH (09:02)
[2021-07-10] MEDS: ASCORBIC ACID 500 MG TAB PO SCH (09:02)
[2021-07-10] MEDS: ENOXAPARIN 100 MG/1 ML INJ SUB-Q SCH ×2 (09:02→22:58)
[2021-07-10] MEDS: dexAMETHasone 4 MG/ML VIAL IV SCH ×2 (09:02→22:58)
[2021-07-10] MEDS: CHOLECALCIFEROL (VIT D3) 1000 UNIT (25 mcg) TAB PO SCH (09:03)
[2021-07-10] MEDS: ZINC SULFATE 220 MG CAP PO SCH (09:03)
--- NOTE | 2021-07-10 09:12 | Progress Note ---
Assessment and Plan Assessment and plan: This is a 40-year-old male with no past medical history and who was recently diagnosed with COVID-19 viral infection a week ago presents to the ED with complaint of acute onset persistent shortness of breath on exertion, persistent dry cough, intermittent fever of up to 103 F, chills, lack of a ppetite, body aches and pains, and generalized fatigue and weakness for the last 1 week. Patient states that in the last 2 days his shortness of breath is worsened such that even with walking from his bed to the toilet worsen his symptoms. Checks x-ray done and it showed pneumonia. I reviewed patient medical record, lab work and vital signs. Patient has elevated D-dimer -CT of the chest has been orderedwe will follow-up with results. (1) COVID-19 virus infection Current Visit: No Status: Acute Plan to address problem: airborne and contact isolation per covid protocol Monitor inflammatory maker Chest x-ray -showed pneumonia Empiric abx therapy azithromycin and Rocephin Check procalcitonin oxygen supplement if needed Ascorbic acid, zinc sulphate and vitamin D-when tolerating oral intake Encourage the use of incentive spirometer and prone position (2) Bilateral pneumonia Current Visit: No Status: Acute Plan to address problem: Continue empiric antibiotics ABG and serial chest x-ray (3) Hyponatremia Current Visit: No Status: Acute Plan to address problem: Continue IV hydration with normal saline Monitor sodium level (4) Hypokalemia Current Visit: No Status: Acute Plan to address problem: Replace potassium Monitor electrolytes (5) Elevated d-dimer Current Visit: Yes Status: Acute Plan to address problem: D-dimer 786.[address] rule out pulmonary embolism (6) DVT prophylaxis Current Visit: No Status: Acute Plan to address problem: Lovenox subcutaneous 07/05: Patient seen and examined still with shortness of breath ID input is noted IV/PO Dexamethasone x 10 days, IV remdesivir x 5 days, ordered for management of COVID-19. Continue oxygen and wean as tolerated will consult pulmonary for assistance. Encourage prone positioning. Monitor inflammatory markers co ndition is guarded. Will reevaluate tomorrow and possible trial of Lasix therapy. In addition to IDs recommendation "if hypoxia worsens to requiring HFNC >30 L/min, given CRP >7.5, would be candidate for Actemra (depending on availability)" CT CHEST: IMPRESSION: 1. No CT evidence for pulmonary embolism. 2. Extensive bilateral pneumonia characteristic of atypical/viral pneumonia such as Covid. 3. Hepatic steatosis. 07/06: Patient continues on high flow oxygen at this time. Remdesivir and steroids initiated. We will start patient on Lasix and monitor renal function. Will check urine osmolarity to guide therapy. Patient states that he prone last night encouraged him to continue to do the same movement throughout the day. Initiate vitamins to assist in management to monitor inflammatory markers. 07/07: Continue current management. Monitor renal function with addition of Lasix. Continue steroids and remdesivir. ID and pulmonary input appreciated 07/08: Patient seen and examined, continues on High flow Gold NC at 10 liters, patient also noted to have increased Blood glucose possible secondary to steroids or underlying DM. Continue steroids and remdesivir and will add insulin coverage. Continue to prone. Continue lasix and monitor renal function 07/09: Patient seen and examined, reports some improvement, will continue to treat as tolerated. patient has been weaned down to 5 liters of oxygen sating 93% but with increased work of heart rate. He said he has just walked around. Continue steroids therapy, Continue Remdesivir. Encourage Proning as patient has been doing. 07/10: Patient seen and examined down to 2 to 3 L of oxygen doing very well ambulating. Will reevaluate in a.m. and possible home O2 evaluation History Interval history: Patient seen and examined showing some remarkable improvement he is down to 2-3 L. We will do a home O2 eval tomorrow in anticipation for discharge. Hospitalist Physical - Physical exam Narrative exam: VITAL SIGNS: Reviewed. GENERAL: The patient appears normally developed, obese, still mild shortness of breath but improved vital signs as documented. HEAD: No signs of head trauma. EYES: Pupils are equal. Extraocular motions intact. EARS: Hearing grossly intact. MOUTH: Oropharynx is normal. NECK: No adenopathy, no JVD. CHEST: Chest with diminished breath sounds bilaterally. No wheezes, rales, or rhonchi. CARDIAC: Regular rate and rhythm. S1 and S2, without murmurs, gallops, or rubs. VASCULAR: No Edema. Peripheral pulses normal and equal in all extremities. ABDOMEN: Soft, non tender and non distended. No rebound or guarding, and no masses palpated. Bowel Sounds normal. MUSCULOSKELETAL: Good range of motion of all major joints. Extremities without clubbing, cyanosis or edema. NEUROLOGIC EXAM: Alert and oriented x 3 No focal sensory or strength deficits. Speech normal. Follows commands. PSYCHIATRIC: Mood normal. SKIN: detail exam as documented in skin assessment - Constitutional Vitals: Temp Pulse Resp BP Pulse Ox 97.8 F 76 20 127/89 94 07/10/21 05:24 07/10/21 05:24 07/10/21 05:24 07/10/21 05:24 07/10/21 05:24 HEART Score - HEART Score Troponin: Troponin T < 0.010 ng/mL (0.00-0.029) 07/04/21 03:33 Results - Labs CBC & Chem 7: 07/10/21 06:01 07/10/21 06:01 Labs: Laboratory Last Values WBC 14.0 K/mm3 (4.5-11.0) H 07/10/21 06:01 RBC 4.67 M/mm3 (3.65-5.03) 07/10/21 06:01 Hgb 14.6 gm/dl (11.8-15.2) 07/10/21 06:01 Hct 42.2 % (35.5-45.6) 07/10/21 06:01 MCV 90 fl (84-94) 07/10/21 06:01 MCH 31 pg (28-32) 07/10/21 06:01 MCHC 35 % (32-34) H 07/10/21 06:01 RDW 13.7 % (13.2-15.2) 07/10/21 06:01 Plt Count 630 K/mm3 (140-440) H 07/10/21 06:01 Lymph % (Auto) 8.0 % (13.4-35.0) L 07/04/21 03:02 Lynn % (Auto) 5.1 % (0.0-7.3) 07/04/21 03:02 Eos % (Auto) 0.0 % (0.0-4.3) 07/04/21 03:02 Baso % (Auto) 0.5 % (0.0-1.8) 07/04/21 03:02 Lymph # (Auto) 0.8 K/mm3 (1.2-5.4) L 07/04/21 03:02 Lynn # (Auto) 0.5 K/mm3 (0.0-0.8) 07/04/21 03:02 Eos # (Auto) 0.0 K/mm3 (0.0-0.4) 07/04/21 03:02 Baso # (Auto) 0.1 K/mm3 (0.0-0.1) 07/04/21 03:02 Add Manual Diff Complete 07/05/21 05:24 Total Counted 100 07/05/21 05:24 Seg Neutrophils % 86.4 % (40.0-70.0) H 07/04/21 03:02 Seg Neuts % (Manual) 80.0 % (40.0-70.0) H 07/05/21 05:24 Band Neutrophils % 5.0 % 07/05/21 05:24 Lymphocytes % (Manual) 10.0 % (13.4-35.0) L 07/05/21 05:24 Monocytes % (Manual) 5.0 % (0.0-7.3) 07/05/21 05:24 Nucleated RBC % Not Reportable 07/05/21 05:24 Seg Neutrophils # 9.1 K/mm3 (1.8-7.7) H 07/04/21 03:02 Seg Neutrophils # Man 11.7 K/mm3 (1.8-7.7) H 07/05/21 05:24 Band Neutrophils # 0.7 K/mm3 07/05/21 05:24 Lymphocytes # (Manual) 1.5 K/mm3 (1.2-5.4) 07/05/21 05:24 Abs React Lymphs (Man) 0.0 K/mm3 07/05/21 05:24 Monocytes # (Manual) 0.7 K/mm3 (0.0-0.8) 07/05/21 05:24 Eosinophils # (Manual) 0.0 K/mm3 (0.0-0.4) 07/05/21 05:24 Basophils # (Manual) 0.0 K/mm3 (0.0-0.1) 07/05/21 05:24 Metamyelocytes # 0.0 K/mm3 07/05/21 05:24 Myelocytes # 0.0 K/mm3 07/05/21 05:24 Promyelocytes # 0.0 K/mm3 07/05/21 05:24 Blast Cells # 0.0 K/mm3 07/05/21 05:24 WBC Morphology Not Reportable 07/05/21 05:24 Hypersegmented Neuts Not Reportable 07/05/21 05:24 Hyposegmented Neuts Not Reportable 07/05/21 05:24 Hypogranular Neuts Not Reportable 07/05/21 05:24 Smudge Cells Not Reportable 07/05/21 05:24 Toxic Granulation Not Reportable 07/05/21 05:24 Toxic Vacuolation Not Reportable 07/05/21 05:24 Dohle Bodies Not Reportable 07/05/21 05:24 Pelger-Huet Anomaly Not Reportable 07/05/21 05:24 Smiley Rods Not Reportable 07/05/21 05:24 Platelet Estimate Consistent w auto 07/05/21 05:24 Clumped Platelets Not Reportable 07/05/21 05:24 Plt Clumps, EDTA Not Reportable 07/05/21 05:24 Large Platelets Not Reportable 07/05/21 05:24 Giant Platelets Not Reportable 07/05/21 05:24 Platelet Satelliting Not Reportable 07/05/21 05:24 Plt Morphology Comment Not Reportable 07/05/21 05:24 RBC Morphology Normal 07/05/21 05:24 Dimorphic RBCs Not Reportable 07/05/21 05:24 Polychromasia Not Reportable 07/05/21 05:24 Hypochromasia Not Reportable 07/05/21 05:24 Poikilocytosis Not Reportable 07/05/21 05:24 Anisocytosis Not Reportable 07/05/21 05:24 Microcytosis Not Reportable 07/05/21 05:24 Macrocytosis Not Reportable 07/05/21 05:24 Spherocytes Not Reportable 07/05/21 05:24 Pappenheimer Bodies Not Reportable 07/05/21 05:24 Sickle Cells Not Reportable 07/05/21 05:24 Target Cells Not Reportable 07/05/21 05:24 Tear Drop Cells Not Reportable 07/05/21 05:24 Ovalocytes Not Reportable 07/05/21 05:24 Helmet Cells Not Reportable 07/05/21 05:24 Bradford-Leon Bodies Not Reportable 07/05/21 05:24 [place] Rings Not Reportable 07/05/21 05:24 Paulette Cells Not Reportable 07/05/21 05:24 Bite Cells Not Reportable 07/05/21 05:24 Crenated Cell Not Reportable 07/05/21 05:24 Elliptocytes Not Reportable 07/05/21 05:24 Acanthocytes (Spur) Not Reportable 07/05/21 05:24 Rouleaux Not Reportable 07/05/21 05:24 Hemoglobin C Crystals Not Reportable 07/05/21 05:24 Schistocytes Not Reportable 07/05/21 05:24 Malaria parasites Not Reportable 07/05/21 05:24 Frederick Bodies Not Reportable 07/05/21 05:24 Hem Pathologist Commnt No 07/05/21 05:24 D-Dimer 1728.55 ng/mlDDU (0-234) H 07/09/21 07:50 Sodium 135 mmol/L (137-145) L 07/10/21 06:01 Potassium 4.3 mmol/L (3.6-5.0) 07/10/21 06:01 Chloride 97.1 mmol/L (98-107) L 07/10/21 06:01 Carbon Dioxide 21 mmol/L (22-30) L 07/10/21 06:01 Anion Gap 21 mmol/L 07/10/21 06:01 BUN 29 mg/dL (9-20) H 07/10/21 06:01 Creatinine 1.0 mg/dL (0.8-1.3) 07/10/21 06:01 Estimated GFR > 60 ml/min 07/10/21 06:01 BUN/Creatinine Ratio 29 % 07/10/21 06:01 Glucose 268 mg/dL (75-100) H 07/10/21 06:01 POC Glucose 239 mg/dL (70-105) H 07/10/21 08:04 Hemoglobin A1c 7.3 % (4-6) H 07/04/21 08:29 Lactic Acid 1.70 mmol/L (0.7-2.0) 07/04/21 03:01 Calcium 8.7 mg/dL (8.4-10.2) 07/10/21 06:01 Ferritin 2452.0 ng/mL (30.0-300.0) H 07/04/21 03:33 Total Bilirubin 0.70 mg/dL (0.1-1.2) 07/10/21 06:01 AST 38 units/L (5-40) 07/10/21 06:01 ALT 63 units/L (7-56) H 07/10/21 06:01 Alkaline Phosphatase 70 units/L (35-129) 07/10/21 06:01 Lactate Dehydrogenase 759 units/L (91-180) H 07/04/21 03:33 Total Creatine Kinase 194 units/L (55-170) H 07/04/21 03:33 Troponin T < 0.010 ng/mL (0.00-0.029) 07/04/21 03:33 C-Reactive Protein 1.20 mg/dL (0.00-1.30) 07/09/21 07:50 Total Protein 6.8 g/dL (6.3-8.2) 07/10/21 06:01 Albumin 3.2 g/dL (3.9-5) L 07/10/21 06:01 Albumin/Globulin Ratio 0.9 % 07/10/21 06:01 Procalcitonin 0.70 ng/mL (<0.15) 07/04/21 03:33 Urine Osmolality 775 Mosm/kg 07/07/21 17:15 Coronavirus (PCR) Positive (Negative) A 07/04/21 09:40 Moore/IV: Voiding Method Urinal Active Medications - Current Medications Current Medications: Generic Name Dose Route Start Last Admin Trade Name Freq PRN Reason Stop Dose Admin Acetaminophen 650 mg 07/04/21 04:11 Acetaminophen 325 Mg Tab PO Q4H PRN Pain MILD(1-3)/Fever >100.5/[place] Al Hydrox/Mg Hydrox/Simethicone 30 ml 07/04/21 04:11 Alum-Mag Hydroxide-Simethicone [id number]/5ml Oral Liqd 30 Ml PO Q4H PRN Indigestion Ascorbic Acid 500 mg 07/04/21 10:00 07/10/21 09:02 Ascorbic Acid 500 Mg Tab PO 500 mg QDAY [place] Administration Cholecalciferol 1,000 unit 07/04/21 10:00 07/10/21 09:03 Cholecalciferol (Vit D3) 1000 Unit (25 Mcg) Tab PO 1,000 unit QDAY [place] Administration Dexamethasone 6 mg 07/06/21 10:45 07/10/21 09:02 Dexamethasone 4 Mg/Ml Vial IV 07/14/21 10:59 6 mg Q12HR [place] Administration Dextrose 50 ml 07/08/21 09:30 Dextrose 50% In Water (25gm) 50 Ml Syringe IV Q30MIN PRN Hypoglycemia Protocol Enoxaparin Sodium 90 mg 07/09/21 10:00 07/10/21 09:02 Enoxaparin 100 Mg/1 Ml Inj SUB-Q 90 mg Q12HR [place] Administration Protocol Furosemide 40 mg 07/09/21 10:00 07/10/21 09:02 Furosemide 40 Mg/4 Ml Inj IV 07/11/21 10:01 40 mg QDAY [place] Administration Insulin Glargine 30 units 07/09/21 18:00 07/09/21 17:49 Insulin Glargine 100 Units/Ml SUB-Q 30 units QPM [place] Administration Insulin Human Lispro 0 unit 07/08/21 11:30 07/10/21 07:30 Insulin Lispro 100 Unit/Ml SUB-Q 4 unit ACHS [place] Administration Protocol Magnesium Hydroxide 30 ml 07/04/21 04:11 Magnesium Hydroxide (Mom) Oral Liqd Udc PO Q4H PRN Constipation Metoclopramide HCl 10 mg 07/04/21 04:11 Metoclopramide 10 Mg/2 Ml Inj IV Q6H PRN Nausea And Vomiting Morphine Sulfate 2 mg 07/04/21 04:11 Morphine 2 Mg/1 Ml Inj IV Q4H PRN Pain, Moderate (4-6) Morphine Sulfate 4 mg 07/04/21 04:11 Morphine 4 Mg/1 Ml Inj IV Q4H PRN Pain , Severe (7-10) Naloxone HCl 0.1 mg 07/04/21 04:11 Naloxone 0.4 Mg/1 Ml Inj IV Q2MIN PRN Res Rate </= 8 or 02 SAT < 92% Ondansetron HCl 4 mg 07/04/21 04:11 Ondansetron 4 Mg/2 Ml Inj IV Q8H PRN Nausea And Vomiting Oxycodone/Acetaminophen 1 tab 07/04/21 04:11 Oxycodone /Acetaminophen 5-325mg Tab PO Q6H PRN Pain, Moderate (4-6) Senna 8.6 mg 07/04/21 04:11 Sennosides 8.6 Mg Tab PO Q12HR PRN Constipation Sodium Chloride 10 ml 07/04/21 10:00 07/10/21 09:03 Sodium Chloride 0.9% 10 Ml Flush Syringe IV 10 ml BID [place] Administration Zinc Sulfate 220 mg 07/04/21 10:00 07/10/21 09:03 Zinc Sulfate 220 Mg Cap PO 220 mg QDAY [place] Administration
--- NOTE | 2021-07-10 17:26 | Progress Note ---
Assessment and Plan Imp: 1. Covid-19 2. Viral pneumonia 3. Acute respiratory failure, hypoxia 4. Obesity Rec: 1. S/p Remdesivir 2. Decadron x 10 days 3. Cont. anticoagulation 4. Trend inflammatory markers 5. Wean O2 to keep sats 88% or > Subjective Date of service: 07/10/21 Principal diagnosis: Covid-19 Interval history: No events noted. Now on 2L NC. Ambulating w/ decreased SOB per chart. Active Medications Acetaminophen (Acetaminophen 325 Mg Tab) 650 mg PO Q4H PRN PRN Reason: Pain MILD(1-3)/Fever >100.5/[place] Al Hydrox/Mg Hydrox/Simethicone (Alum-Mag Hydroxide-Simethicone [phone]/5ml Oral Liqd 30 Ml) 30 ml PO Q4H PRN PRN Reason: Indigestion Ascorbic Acid (Ascorbic Acid 500 Mg Tab) 500 mg PO QDAY [facility] Last Admin: 07/10/21 09:02 Dose: 500 mg Documented by: Cholecalciferol (Cholecalciferol (Vit D3) 1000 Unit (25 Mcg) Tab) 1,000 unit PO QDAY [facility] Last Admin: 07/10/21 09:03 Dose: 1,000 unit Documented by: Dexamethasone (Dexamethasone 4 Mg/Ml Vial) 6 mg IV Q12HR [facility] Stop: 07/14/21 10:59 Last Admin: 07/10/21 09:02 Dose: 6 mg Documented by: Dextrose (Dextrose 50% In Water (25gm) 50 Ml Syringe) 50 ml IV Q30MIN PRN; Protocol PRN Reason: Hypoglycemia Enoxaparin Sodium (Enoxaparin 100 Mg/1 Ml Inj) 90 mg SUB-Q Q12HR [facility]; Protocol Last Admin: 07/10/21 09:02 Dose: 90 mg Documented by: Furosemide (Furosemide 40 Mg/4 Ml Inj) 40 mg IV QDAY [place] Stop: 07/11/21 10:01 Last Admin: 07/10/21 09:02 Dose: 40 mg Documented by: Insulin Glargine (Insulin Glargine 100 Units/Ml) 30 units SUB-Q QPM [facility] Last Admin: 07/09/21 17:49 Dose: 30 units Documented by: Insulin Human Lispro (Insulin Lispro 100 Unit/Ml) 0 unit SUB-Q ACHS [place]; Protocol Last Admin: 07/10/21 11:30 Dose: 8 unit Documented by: Magnesium Hydroxide (Magnesium Hydroxide (Mom) Oral Liqd Udc) 30 ml PO Q4H PRN PRN Reason: Constipation Metoclopramide HCl (Metoclopramide 10 Mg/2 Ml Inj) 10 mg IV Q6H PRN PRN Reason: Nausea And Vomiting Morphine Sulfate (Morphine 2 Mg/1 Ml Inj) 2 mg IV Q4H PRN PRN Reason: Pain, Moderate (4-6) Morphine Sulfate (Morphine 4 Mg/1 Ml Inj) 4 mg IV Q4H PRN PRN Reason: Pain , Severe (7-10) Naloxone HCl (Naloxone 0.4 Mg/1 Ml Inj) 0.1 mg IV Q2MIN PRN PRN Reason: Res Rate </= 8 or 02 SAT < 92% Ondansetron HCl (Ondansetron 4 Mg/2 Ml Inj) 4 mg IV Q8H PRN PRN Reason: Nausea And Vomiting Oxycodone/Acetaminophen (Oxycodone /Acetaminophen 5-325mg Tab) 1 tab PO Q6H PRN PRN Reason: Pain, Moderate (4-6) Senna (Sennosides 8.6 Mg Tab) 8.6 mg PO Q12HR PRN PRN Reason: Constipation Sodium Chloride (Sodium Chloride 0.9% 10 Ml Flush Syringe) 10 ml IV BID [facility] Last Admin: 07/10/21 09:03 Dose: 10 ml Documented by: Zinc Sulfate (Zinc Sulfate 220 Mg Cap) 220 mg PO QDAY [facility] Last Admin: 07/10/21 09:03 Dose: 220 mg Documented by: Objective - Exam Narrative Exam: Exam deferred to preserve PPE and decrease transmission of virus. Reviewed primary team exam. Vital Signs - 12hr 07/10/21 07/10/21 07/10/21 10:00 11:34 15:36 Temperature 98.7 F Pulse Rate 84 Respiratory 22 Rate Blood Pressure 117/79 O2 Sat by Pulse 92 96 98 Oximetry CBC and BMP: 07/10/21 06:01 07/10/21 06:01 ABG, PT/INR, D-dimer: PT/INR, D-dimer D-Dimer 1728.55 ng/mlDDU (0-234) H 07/09/21 07:50 Abnormal lab findings: Abnormal Labs 07/04/21 07/04/2121 03:01 03:02 03:33 WBC MCH MCHC 35 H RDW 13.1 L Plt Count Lymph % (Auto) 8.0 L Lymph # (Auto) 0.8 L Seg Neutrophils % 86.4 H Seg Neuts % (Manual) Lymphocytes % (Manual) Seg Neutrophils # 9.1 H Seg Neutrophils # Man D-Dimer 786.71 H Sodium 134 L Potassium 3.3 L Chloride 94.9 L Carbon Dioxide BUN Creatinine Glucose 167 H POC Glucose Hemoglobin A1c Calcium Ferritin AST 70 H ALT Lactate Dehydrogenase Total Creatine Kinase C-Reactive Protein Albumin 3.6 L Coronavirus (PCR) 07/04/21 07/04/21 07/04/21 03:33 03:33 08:29 WBC MCH MCHC RDW Plt Count Lymph % (Auto) Lymph # (Auto) Seg Neutrophils % Seg Neuts % (Manual) Lymphocytes % (Manual) Seg Neutrophils # Seg Neutrophils # Man D-Dimer Sodium 131 L Potassium Chloride 96.0 L Carbon Dioxide BUN Creatinine Glucose 156 H 182 H POC Glucose Hemoglobin A1c Calcium 7.7 L Ferritin 2452.0 H AST ALT Lactate Dehydrogenase 759 H Total Creatine Kinase 194 H C-Reactive Protein 24.40 H Albumin Coronavirus (PCR) 07/04/21 07/04/21 07/05/21 08:29 09:40 05:24 WBC 14.6 H MCH MCHC 35 H RDW Plt Count Lymph % (Auto) Lymph # (Auto) Seg Neutrophils % Seg Neuts % (Manual) 80.0 H Lymphocytes % (Manual) 10.0 L Seg Neutrophils # Seg Neutrophils # Man 11.7 H D-Dimer Sodium Potassium Chloride Carbon Dioxide BUN Creatinine Glucose POC Glucose Hemoglobin A1c 7.3 H Calcium Ferritin AST ALT Lactate Dehydrogenase Total Creatine Kinase C-Reactive Protein Albumin Coronavirus (PCR) Positive A 07/05/21 07/05/21 07/06/21 05:24 13:31 05:35 WBC MCH MCHC RDW Plt Count Lymph % (Auto) Lymph # (Auto) Seg Neutrophils % Seg Neuts % (Manual) Lymphocytes % (Manual) Seg Neutrophils # Seg Neutrophils # Man D-Dimer Sodium Potassium Chloride Carbon Dioxide BUN Creatinine 0.7 L 0.6 L 0.7 L Glucose 197 H 190 H 195 H POC Glucose Hemoglobin A1c Calcium 8.1 L Ferritin AST 51 H 57 H 41 H ALT Lactate Dehydrogenase Total Creatine Kinase C-Reactive Protein Albumin 3.1 L 2.9 L 2.8 L Coronavirus (PCR) 07/07/21 07/07/21 07/08/21 05:54 05:54 05:38 WBC 11.3 H MCH 33 H MCHC 36 H RDW Plt Count Lymph % (Auto) Lymph # (Auto) Seg Neutrophils % Seg Neuts % (Manual) Lymphocytes % (Manual) Seg Neutrophils # Seg Neutrophils # Man D-Dimer Sodium 136 L Potassium Chloride Carbon Dioxide BUN 23 H 26 H Creatinine 0.7 L Glucose 266 H 327 H POC Glucose Hemoglobin A1c Calcium Ferritin AST ALT Lactate Dehydrogenase Total Creatine Kinase C-Reactive Protein Albumin 3.3 L 3.2 L Coronavirus (PCR) 07/08/21 07/08/21 07/09/21 16:34 20:57 07:30 WBC MCH MCHC RDW Plt Count Lymph % (Auto) Lymph # (Auto) Seg Neutrophils % Seg Neuts % (Manual) Lymphocytes % (Manual) Seg Neutrophils # Seg Neutrophils # Man D-Dimer Sodium Potassium Chloride Carbon Dioxide BUN Creatinine Glucose POC Glucose 358 H 277 H 237 H Hemoglobin A1c Calcium Ferritin AST ALT Lactate Dehydrogenase Total Creatine Kinase C-Reactive Protein Albumin Coronavirus (PCR) 07/09/21 07/09/21 07/09/21 07:50 11:40 17:36 WBC MCH MCHC RDW Plt Count Lymph % (Auto) Lymph # (Auto) Seg Neutrophils % Seg Neuts % (Manual) Lymphocytes % (Manual) Seg Neutrophils # Seg Neutrophils # Man D-Dimer 1728.55 H Sodium Potassium Chloride Carbon Dioxide BUN Creatinine Glucose POC Glucose 298 H 266 H Hemoglobin A1c Calcium Ferritin AST ALT Lactate Dehydrogenase Total Creatine Kinase C-Reactive Protein Albumin Coronavirus (PCR) 07/09/21 07/10/21 07/10/21 21:39 06:01 06:01 WBC 14.0 H MCH MCHC 35 H RDW Plt Count 630 H Lymph % (Auto) Lymph # (Auto) Seg Neutrophils % Seg Neuts % (Manual) Lymphocytes % (Manual) Seg Neutrophils # Seg Neutrophils # Man D-Dimer Sodium 135 L Potassium Chloride 97.1 L Carbon Dioxide 21 L BUN 29 H Creatinine Glucose 268 H POC Glucose 218 H Hemoglobin A1c Calcium Ferritin AST ALT 63 H Lactate Dehydrogenase Total Creatine Kinase C-Reactive Protein Albumin 3.2 L Coronavirus (PCR) 07/10/21 07/10/21 08:04 11:35 WBC MCH MCHC RDW Plt Count Lymph % (Auto) Lymph # (Auto) Seg Neutrophils % Seg Neuts % (Manual) Lymphocytes % (Manual) Seg Neutrophils # Seg Neutrophils # Man D-Dimer Sodium Potassium Chloride Carbon Dioxide BUN Creatinine Glucose POC Glucose 239 H 307 H Hemoglobin A1c Calcium Ferritin AST ALT Lactate Dehydrogenase Total Creatine Kinase C-Reactive Protein Albumin Coronavirus (PCR) Chest x-ray: report reviewed, image reviewed
[2021-07-10] MEDS: INSULIN GLARGINE 100 UNITS/ML SUB-Q SCH (17:58)
[2021-07-11] MEDS: INSULIN LISPRO 100 UNIT/ML SUB-Q SCH ×4 (07:30→22:03)
[2021-07-11] MEDS: dexAMETHasone 4 MG/ML VIAL IV SCH ×2 (10:16→22:01)
[2021-07-11] MEDS: FUROSEMIDE 40 MG/4 ML INJ IV SCH (10:17)
[2021-07-11] MEDS: ENOXAPARIN 100 MG/1 ML INJ SUB-Q SCH ×2 (10:17→22:01)
[2021-07-11] MEDS: CHOLECALCIFEROL (VIT D3) 1000 UNIT (25 mcg) TAB PO SCH (10:18)
[2021-07-11] MEDS: ZINC SULFATE 220 MG CAP PO SCH (10:18)
[2021-07-11] MEDS: ASCORBIC ACID 500 MG TAB PO SCH (10:18)
--- NOTE | 2021-07-11 10:58 | Discharge Summary ---
Providers - Providers Date of Admission: 07/05/21 09:27 Attending physician: LYUBOV SIMONS MD 07/04/21 06:52 Consult to Physician [CONS] Routine Comment: Consulting Provider: ESSENCE POWER Physician Instructions: Reason For Exam: Covid infection 07/05/21 09:28 Consult to Physician [CONS] Routine Comment: Consulting Provider: EARL GAXIOLA Physician Instructions: Reason For Exam: covid 19 Primary care physician: COUNTER STACKER Hospitalization Reason for admission: Shortness of breath Condition: Stable Hospital course: This is a 40-year-old male with no past medical history and who was recently diagnosed with COVID-19 viral infection a week ago presents to the ED with complaint of acute onset persistent shortness of breath on exertion, persistent dry cough, intermittent fever of up to 103 F, chills, lack of appetite, body aches and pains, and generalized fatigue and weakness for the last 1 week. Patient states that in the last 2 days his shortness of breath is worsened such that even with walking from his bed to the toilet worsen his symptoms. Checks x-ray done and it showed pneumonia. I reviewed patient medical record, lab work and vital signs. Patient has elevated D-dimer -CT of the chest has been orderedwe will follow-up with results. (1) COVID-19 virus infection Current Visit: No Status: Acute Plan to address problem: airborne and contact isolation per covid protocol Monitor inflammatory maker Chest x-ray -showed pneumonia Empiric abx therapy azithromycin and Rocephin Check procalcitonin oxygen supplement if needed Ascorbic acid, zinc sulphate and vitamin D-when tolerating oral intake Encourage the use of incentive spirometer and prone position (2) Bilateral pneumonia Current Visit: No Status: Acute Plan to address problem: Continue empiric antibiotics ABG and serial chest x-ray (3) Hyponatremia Current Visit: No Status: Acute Plan to address problem: Continue IV hydration with normal saline Monitor sodium level (4) Hypokalemia Current Visit: No Status: Acute Plan to address problem: Replace potassium Monitor electrolytes (5) Elevated d-dimer Current Visit: Yes Status: Acute Plan to address problem: D-dimer 786.[address] rule out pulmonary embolism (6) DVT prophylaxis Current Visit: No Status: Acute Plan to address problem: Lovenox subcutaneous 07/05: Patient seen and examined still with shortness of breath ID input is noted IV/PO Dexamethasone x 10 days, IV remdesivir x 5 days, ordered for management of COVID-19. Continue oxygen and wean as tolerated will consult pulmonary for assistance. Encourage prone positioning. Monitor inflammatory markers condition is guarded. Will reevaluate tomorrow and possible trial of Lasix therapy. In addition to IDs recommendation "if hypoxia worsens to requiring HFNC >30 L/min, given CRP >7.5, would be candidate for Actemra (depending on availability)" CT CHEST: IMPRESSION: 1. No CT evidence for pulmonary embolism. 2. Extensive bilateral pneumonia characteristic of atypical/viral pneumonia such as Covid. 3. Hepatic steatosis. 07/06: Patient continues on high flow oxygen at this time. Remdesivir and steroids initiated. We will start patient on Lasix and monitor renal function. Will check urine osmolarity to guide therapy. Patient states that he prone last night encouraged him to continue to do the same movement throughout the day. Initiate vitamins to assist in management to monitor inflammatory markers. 07/07: Continue current management. Monitor renal function with addition of Lasix. Continue steroids and remdesivir. ID and pulmonary input appreciated 07/08: Patient seen and examined, continues on High flow Gold NC at 10 liters, patient also noted to have increased Blood glucose possible secondary to steroids or underlying DM. Continue steroids and remdesivir and will add insulin coverage. Continue to prone. Continue lasix and monitor renal function 07/09: Patient seen and examined, reports some improvement, will continue to treat as tolerated. patient has been weaned down to 5 liters of oxygen sating 93% but with increased work of heart rate. He said he has just walked around. Continue steroids therapy, Continue Remdesivir. Encourage Proning as patient has been doing. 07/10: Patient seen and examined down to 2 to 3 L of oxygen doing very well ambulating. Will reevaluate in a.m. and possible home O2 evaluation 07/11: Patient with significant deconditioning and significant tachycardia, will re-evaluate in am. 07/12: Patient more stable this morning heart rate and saturation remains intact. Did have a conversation with him about the new diagnosis of diabetes mellitus he verbalized understanding. We will start him on Metformin at discharge. Advised him to ensure he gets his Covid vaccine to continue to protect his family by wearing a mask and social distancing when necessary and appropriate Disposition: 01 HOME / SELF CARE / HOMELESS Final Discharge Diagnosis (Prints w/discharge instructions): Acute hypoxic respiratory failure secondary to COVID-19 Time spent for discharge: 35 minutes Core Measure Documentation - Palliative Care Palliative Care/ Comfort Measures: Not Applicable - Core Measures Any of the following diagnoses?: none Exam - Physical Exam Narrative exam: VITAL SIGNS: Reviewed. GENERAL: The patient appears normally developed, obese, still mild shortness of breath but improved vital signs as documented. HEAD: No signs of head trauma. EYES: Pupils are equal. Extraocular motions intact. EARS: Hearing grossly intact. MOUTH: Oropharynx is normal. NECK: No adenopathy, no JVD. CHEST: Chest with diminished breath sounds bilaterally. No wheezes, rales, or rhonchi. CARDIAC: Regular rate and rhythm. S1 and S2, without murmurs, gallops, or rubs. VASCULAR: No Edema. Peripheral pulses normal and equal in all extremities. ABDOMEN: Soft, non tender and non distended. No rebound or guarding, and no masses palpated. Bowel Sounds normal. MUSCULOSKELETAL: Good range of motion of all major joints. Extremities without clubbing, cyanosis or edema. NEUROLOGIC EXAM: Alert and oriented x 3 No focal sensory or strength deficits. Speech normal. Follows commands. PSYCHIATRIC: Mood normal. SKIN: detail exam as documented in skin assessment - Constitutional Vitals: Temp Pulse Resp BP Pulse Ox 97.9 F 75 18 108/76 94 07/11/21 05:58 07/11/21 05:58 07/11/21 05:58 07/11/21 05:58 07/11/21 08:03 Plan Activity: advance as tolerated, fall precautions Diet: low fat Special Instructions: record daily weights, record daily BP diary Plan of Treatment: Must complete steroids ordered. continue isolation precautions for at least 21 days from family Follow up with: PRIMARY CARE, [Primary Care Provider] - 3-5 Days FUNMILAYO DE LA CRUZ MD [Staff Physician] - 7 Days Prescriptions: dexAMETHasone [Dexamethasone] 8 mg PO DAILY #10 tablet Apixaban [Eliquis] 2.5 mg PO BID #30 tablet Insulin Regular, Human [HumuLIN R] 0 unit SQ AC #1 vial Insulin Glargine [Lantus VIAL] 30 units SUB-Q QPM #10 ml Ascorbic Acid [Vitamin C] 500 mg PO QDAY #30 tablet Cholecalciferol Vit D3 [Vitamin D3 1,000 UNIT TAB] 1,000 unit PO QDAY #30 tablet Zinc Sulfate 220 mg PO QDAY #30 capsule Other Discharge Orders: Glucometer (Amb) Location: None Selected Glucometer supplies[Amb] Location: None Selected
[2021-07-11] MEDS: INSULIN GLARGINE 100 UNITS/ML SUB-Q SCH (17:00)
--- NOTE | 2021-07-12 09:06 | Progress Note ---
Assessment and Plan Assessment and plan: This is a 40-year-old male with no past medical history and who was recently diagnosed with COVID-19 viral infection a week ago presents to the ED with complaint of acute onset persistent shortness of breath on exertion, persistent dry cough, intermittent fever of up to 103 F, chills, lack of a ppetite, body aches and pains, and generalized fatigue and weakness for the last 1 week. Patient states that in the last 2 days his shortness of breath is worsened such that even with walking from his bed to the toilet worsen his symptoms. Checks x-ray done and it showed pneumonia. I reviewed patient medical record, lab work and vital signs. Patient has elevated D-dimer -CT of the chest has been orderedwe will follow-up with results. (1) COVID-19 virus infection Current Visit: No Status: Acute Plan to address problem: airborne and contact isolation per covid protocol Monitor inflammatory maker Chest x-ray -showed pneumonia Empiric abx therapy azithromycin and Rocephin Check procalcitonin oxygen supplement if needed Ascorbic acid, zinc sulphate and vitamin D-when tolerating oral intake Encourage the use of incentive spirometer and prone position (2) Bilateral pneumonia Current Visit: No Status: Acute Plan to address problem: Continue empiric antibiotics ABG and serial chest x-ray (3) Hyponatremia Current Visit: No Status: Acute Plan to address problem: Continue IV hydration with normal saline Monitor sodium level (4) Hypokalemia Current Visit: No Status: Acute Plan to address problem: Replace potassium Monitor electrolytes (5) Elevated d-dimer Current Visit: Yes Status: Acute Plan to address problem: D-dimer 786.[address] rule out pulmonary embolism (6) DVT prophylaxis Current Visit: No Status: Acute Plan to address problem: Lovenox subcutaneous 07/05: Patient seen and examined still with shortness of breath ID input is noted IV/PO Dexamethasone x 10 days, IV remdesivir x 5 days, ordered for management of COVID-19. Continue oxygen and wean as tolerated will consult pulmonary for assistance. Encourage prone positioning. Monitor inflammatory markers co ndition is guarded. Will reevaluate tomorrow and possible trial of Lasix therapy. In addition to IDs recommendation "if hypoxia worsens to requiring HFNC >30 L/min, given CRP >7.5, would be candidate for Actemra (depending on availability)" CT CHEST: IMPRESSION: 1. No CT evidence for pulmonary embolism. 2. Extensive bilateral pneumonia characteristic of atypical/viral pneumonia such as Covid. 3. Hepatic steatosis. 07/06: Patient continues on high flow oxygen at this time. Remdesivir and steroids initiated. We will start patient on Lasix and monitor renal function. Will check urine osmolarity to guide therapy. Patient states that he prone last night encouraged him to continue to do the same movement throughout the day. Initiate vitamins to assist in management to monitor inflammatory markers. 07/07: Continue current management. Monitor renal function with addition of Lasix. Continue steroids and remdesivir. ID and pulmonary input appreciated 07/08: Patient seen and examined, continues on High flow Gold NC at 10 liters, patient also noted to have increased Blood glucose possible secondary to steroids or underlying DM. Continue steroids and remdesivir and will add insulin coverage. Continue to prone. Continue lasix and monitor renal function 07/09: Patient seen and examined, reports some improvement, will continue to treat as tolerated. patient has been weaned down to 5 liters of oxygen sating 93% but with increased work of heart rate. He said he has just walked around. Continue steroids therapy, Continue Remdesivir. Encourage Proning as patient has been doing. 07/10: Patient seen and examined down to 2 to 3 L of oxygen doing very well ambulating. Will reevaluate in a.m. and possible home O2 evaluation 07/11: Patient with significant deconditioning and significant tachycardia, will re-evaluate in am. History Interval history: Patient seen and examined showing some remarkable improvement he is down to 2-3 L. HOME O2 EVAL Hospitalist Physical - Physical exam Narrative exam: VITAL SIGNS: Reviewed. GENERAL: The patient appears normally developed, obese, still mild shortness of breath but improved vital signs as documented. HEAD: No signs of head trauma. EYES: Pupils are equal. Extraocular motions intact. EARS: Hearing grossly intact. MOUTH: Oropharynx is normal. NECK: No adenopathy, no JVD. CHEST: Chest with diminished breath sounds bilaterally. No wheezes, rales, or rhonchi. CARDIAC: Regular rate and rhythm. S1 and S2, without murmurs, gallops, or rubs. VASCULAR: No Edema. Peripheral pulses normal and equal in all extremities. ABDOMEN: Soft, non tender and non distended. No rebound or guarding, and no masses palpated. Bowel Sounds normal. MUSCULOSKELETAL: Good range of motion of all major joints. Extremities without clubbing, cyanosis or edema. NEUROLOGIC EXAM: Alert and oriented x 3 No focal sensory or strength deficits. Speech normal. Follows commands. PSYCHIATRIC: Mood normal. SKIN: detail exam as documented in skin assessment - Constitutional Vitals: Temp Pulse Resp BP Pulse Ox 97.8 F 75 18 118/74 92 07/12/21 04:25 07/12/21 04:25 07/12/21 04:25 07/12/21 04:25 07/12/21 04:25 HEART Score - HEART Score Troponin: Troponin T < 0.010 ng/mL (0.00-0.029) 07/04/21 03:33 Results - Labs CBC & Chem 7: 07/10/21 06:01 07/10/21 06:01 Labs: Laboratory Last Values WBC 14.0 K/mm3 (4.5-11.0) H 07/10/21 06:01 RBC 4.67 M/mm3 (3.65-5.03) 07/10/21 06:01 Hgb 14.6 gm/dl (11.8-15.2) 07/10/21 06:01 Hct 42.2 % (35.5-45.6) 07/10/21 06:01 MCV 90 fl (84-94) 07/10/21 06:01 MCH 31 pg (28-32) 07/10/21 06:01 MCHC 35 % (32-34) H 07/10/21 06:01 RDW 13.7 % (13.2-15.2) 07/10/21 06:01 Plt Count 630 K/mm3 (140-440) H 07/10/21 06:01 Lymph % (Auto) 8.0 % (13.4-35.0) L 07/04/21 03:02 [place] % (Auto) 5.1 % (0.0-7.3) 07/04/21 03:02 Eos % (Auto) 0.0 % (0.0-4.3) 07/04/21 03:02 Baso % (Auto) 0.5 % (0.0-1.8) 07/04/21 03:02 Lymph # (Auto) 0.8 K/mm3 (1.2-5.4) L 07/04/21 03:02 [place] # (Auto) 0.5 K/mm3 (0.0-0.8) 07/04/21 03:02 Eos # (Auto) 0.0 K/mm3 (0.0-0.4) 07/04/21 03:02 Baso # (Auto) 0.1 K/mm3 (0.0-0.1) 07/04/21 03:02 Add Manual Diff Complete 07/05/21 05:24 Total Counted 100 07/05/21 05:24 Seg Neutrophils % 86.4 % (40.0-70.0) H 07/04/21 03:02 Seg Neuts % (Manual) 80.0 % (40.0-70.0) H 07/05/21 05:24 Band Neutrophils % 5.0 % 07/05/21 05:24 Lymphocytes % (Manual) 10.0 % (13.4-35.0) L 07/05/21 05:24 Monocytes % (Manual) 5.0 % (0.0-7.3) 07/05/21 05:24 Nucleated RBC % Not Reportable 07/05/21 05:24 Seg Neutrophils # 9.1 K/mm3 (1.8-7.7) H 07/04/21 03:02 Seg Neutrophils # Man 11.7 K/mm3 (1.8-7.7) H 07/05/21 05:24 Band Neutrophils # 0.7 K/mm3 07/05/21 05:24 Lymphocytes # (Manual) 1.5 K/mm3 (1.2-5.4) 07/05/21 05:24 Abs React Lymphs (Man) 0.0 K/mm3 07/05/21 05:24 Monocytes # (Manual) 0.7 K/mm3 (0.0-0.8) 07/05/21 05:24 Eosinophils # (Manual) 0.0 K/mm3 (0.0-0.4) 07/05/21 05:24 Basophils # (Manual) 0.0 K/mm3 (0.0-0.1) 07/05/21 05:24 Metamyelocytes # 0.0 K/mm3 07/05/21 05:24 Myelocytes # 0.0 K/mm3 07/05/21 05:24 Promyelocytes # 0.0 K/mm3 07/05/21 05:24 Blast Cells # 0.0 K/mm3 07/05/21 05:24 WBC Morphology Not Reportable 07/05/21 05:24 Hypersegmented Neuts Not Reportable 07/05/21 05:24 Hyposegmented Neuts Not Reportable 07/05/21 05:24 Hypogranular Neuts Not Reportable 07/05/21 05:24 Smudge Cells Not Reportable 07/05/21 05:24 Toxic Granulation Not Reportable 07/05/21 05:24 Toxic Vacuolation Not Reportable 07/05/21 05:24 Dohle Bodies Not Reportable 07/05/21 05:24 Pelger-Huet Anomaly Not Reportable 07/05/21 05:24 Smiley Rods Not Reportable 07/05/21 05:24 Platelet Estimate Consistent w auto 07/05/21 05:24 Clumped Platelets Not Reportable 07/05/21 05:24 Plt Clumps, EDTA Not Reportable 07/05/21 05:24 Large Platelets Not Reportable 07/05/21 05:24 Giant Platelets Not Reportable 07/05/21 05:24 Platelet Satelliting Not Reportable 07/05/21 05:24 Plt Morphology Comment Not Reportable 07/05/21 05:24 RBC Morphology Normal 07/05/21 05:24 Dimorphic RBCs Not Reportable 07/05/21 05:24 Polychromasia Not Reportable 07/05/21 05:24 Hypochromasia Not Reportable 07/05/21 05:24 Poikilocytosis Not Reportable 07/05/21 05:24 Anisocytosis Not Reportable 07/05/21 05:24 Microcytosis Not Reportable 07/05/21 05:24 Macrocytosis Not Reportable 07/05/21 05:24 Spherocytes Not Reportable 07/05/21 05:24 Pappenheimer Bodies Not Reportable 07/05/21 05:24 Sickle Cells Not Reportable 07/05/21 05:24 Target Cells Not Reportable 07/05/21 05:24 Tear Drop Cells Not Reportable 07/05/21 05:24 Ovalocytes Not Reportable 07/05/21 05:24 Helmet Cells Not Reportable 07/05/21 05:24 [place] Bodies Not Reportable 07/05/21 05:24 Bartley Rings Not Reportable 07/05/21 05:24 [place] Cells Not Reportable 07/05/21 05:24 Bite Cells Not Reportable 07/05/21 05:24 Crenated Cell Not Reportable 07/05/21 05:24 Elliptocytes Not Reportable 07/05/21 05:24 Acanthocytes (Spur) Not Reportable 07/05/21 05:24 Rouleaux Not Reportable 07/05/21 05:24 Hemoglobin C Crystals Not Reportable 07/05/21 05:24 Schistocytes Not Reportable 07/05/21 05:24 Malaria parasites Not Reportable 07/05/21 05:24 [place] Bodies Not Reportable 07/05/21 05:24 Hem Pathologist Commnt No 07/05/21 05:24 D-Dimer 1728.55 ng/mlDDU (0-234) H 07/09/21 07:50 Sodium 135 mmol/L (137-145) L 07/10/21 06:01 Potassium 4.3 mmol/L (3.6-5.0) 07/10/21 06:01 Chloride 97.1 mmol/L (98-107) L 07/10/21 06:01 Carbon Dioxide 21 mmol/L (22-30) L 07/10/21 06:01 Anion Gap 21 mmol/L 07/10/21 06:01 BUN 29 mg/dL (9-20) H 07/10/21 06:01 Creatinine 1.0 mg/dL (0.8-1.3) 07/10/21 06:01 Estimated GFR > 60 ml/min 07/10/21 06:01 BUN/Creatinine Ratio 29 % 07/10/21 06:01 Glucose 268 mg/dL (75-100) H 07/10/21 06:01 POC Glucose 207 mg/dL (70-105) H 07/12/21 07:22 Hemoglobin A1c 7.3 % (4-6) H 07/04/21 08:29 Lactic Acid 1.70 mmol/L (0.7-2.0) 07/04/21 03:01 Calcium 8.7 mg/dL (8.4-10.2) 07/10/21 06:01 Ferritin 2452.0 ng/mL (30.0-300.0) H 07/04/21 03:33 Total Bilirubin 0.70 mg/dL (0.1-1.2) 07/10/21 06:01 AST 38 units/L (5-40) 07/10/21 06:01 ALT 63 units/L (7-56) H 07/10/21 06:01 Alkaline Phosphatase 70 units/L (35-129) 07/10/21 06:01 Lactate Dehydrogenase 759 units/L (91-180) H 07/04/21 03:33 Total Creatine Kinase 194 units/L (55-170) H 07/04/21 03:33 Troponin T < 0.010 ng/mL (0.00-0.029) 07/04/21 03:33 C-Reactive Protein 1.20 mg/dL (0.00-1.30) 07/09/21 07:50 Total Protein 6.8 g/dL (6.3-8.2) 07/10/21 06:01 Albumin 3.2 g/dL (3.9-5) L 07/10/21 06:01 Albumin/Globulin Ratio 0.9 % 07/10/21 06:01 Procalcitonin 0.70 ng/mL (<0.15) 07/04/21 03:33 Urine Osmolality 775 Mosm/kg 07/07/21 17:15 Coronavirus (PCR) Positive (Negative) A 07/04/21 09:40 Moore/IV: Voiding Method Toilet Active Medications - Current Medications Current Medications: Generic Name Dose Route Start Last Admin Trade Name Freq PRN Reason Stop Dose Admin Acetaminophen 650 mg 07/04/21 04:11 Acetaminophen 325 Mg Tab PO Q4H PRN Pain MILD(1-3)/Fever >100.5/BURGOS Al Hydrox/Mg Hydrox/Simethicone 30 ml 07/04/21 04:11 Alum-Mag Hydroxide-Simethicone 160-381-00jy/5ml Oral Liqd 30 Ml PO Q4H PRN Indigestion Ascorbic Acid 500 mg 07/04/21 10:00 07/11/21 10:18 Ascorbic Acid 500 Mg Tab PO 500 mg QDAY [place] Administration Cholecalciferol 1,000 unit 07/04/21 10:00 07/11/21 10:18 Cholecalciferol (Vit D3) 1000 Unit (25 Mcg) Tab PO 1,000 unit QDAY [place] Administration Dexamethasone 6 mg 07/06/21 10:45 07/11/21 22:01 Dexamethasone 4 Mg/Ml Vial IV 07/14/21 10:59 6 mg Q12HR [place] Administration Dextrose 50 ml 07/08/21 09:30 Dextrose 50% In Water (25gm) 50 Ml Syringe IV Q30MIN PRN Hypoglycemia Protocol Enoxaparin Sodium 90 mg 07/09/21 10:00 07/11/21 22:01 Enoxaparin 100 Mg/1 Ml Inj SUB-Q 90 mg Q12HR [place] Administration Protocol Insulin Glargine 30 units 07/09/21 18:00 07/11/21 17:00 Insulin Glargine 100 Units/Ml SUB-Q 30 units QPM [place] Administration Insulin Human Lispro 0 unit 07/08/21 11:30 07/11/21 22:03 Insulin Lispro 100 Unit/Ml SUB-Q 4 unit ACHS [place] Administration Protocol Magnesium Hydroxide 30 ml 07/04/21 04:11 Magnesium Hydroxide (Mom) Oral Liqd Udc PO Q4H PRN Constipation Metoclopramide HCl 10 mg 07/04/21 04:11 Metoclopramide 10 Mg/2 Ml Inj IV Q6H PRN Nausea And Vomiting Morphine Sulfate 2 mg 07/04/21 04:11 Morphine 2 Mg/1 Ml Inj IV Q4H PRN Pain, Moderate (4-6) Morphine Sulfate 4 mg 07/04/21 04:11 Morphine 4 Mg/1 Ml Inj IV Q4H PRN Pain , Severe (7-10) Naloxone HCl 0.1 mg 07/04/21 04:11 Naloxone 0.4 Mg/1 Ml Inj IV Q2MIN PRN Res Rate </= 8 or 02 SAT < 92% Ondansetron HCl 4 mg 07/04/21 04:11 Ondansetron 4 Mg/2 Ml Inj IV Q8H PRN Nausea And Vomiting Oxycodone/Acetaminophen 1 tab 07/04/21 04:11 Oxycodone /Acetaminophen 5-325mg Tab PO Q6H PRN Pain, Moderate (4-6) Senna 8.6 mg 07/04/21 04:11 Sennosides 8.6 Mg Tab PO Q12HR PRN Constipation Sodium Chloride 10 ml 07/04/21 10:00 07/11/21 22:05 Sodium Chloride 0.9% 10 Ml Flush Syringe IV 10 ml BID [place] Administration Zinc Sulfate 220 mg 07/04/21 10:00 07/11/21 10:18 Zinc Sulfate 220 Mg Cap PO 220 mg QDAY [place] Administration
[2021-07-12] MEDS: ASCORBIC ACID 500 MG TAB PO SCH (09:16)
[2021-07-12] MEDS: ZINC SULFATE 220 MG CAP PO SCH (09:16)
[2021-07-12] MEDS: CHOLECALCIFEROL (VIT D3) 1000 UNIT (25 mcg) TAB PO SCH (09:16)
[2021-07-12] MEDS: dexAMETHasone 4 MG/ML VIAL IV SCH (09:17)
[2021-07-12] MEDS: INSULIN LISPRO 100 UNIT/ML SUB-Q SCH ×2 (09:17→13:40)
[2021-07-12] MEDS: ENOXAPARIN 100 MG/1 ML INJ SUB-Q SCH (09:17)
[2021-07-12 12:01] VITALS: BP 124/61
--- NOTE | 2021-07-12 13:56 | Electrocardiograph Report ---
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
== END 2021-07-12 15:10 | disposition home or self-care (01) | DRG 177 ==
LOC: ED 01:00 → 3A 06:47 → OBSVTOIN 07-05 09:27
PROVIDERS: ADMIT Hospitalist; ATTEND Internal Medicine
PROC: XW033E5 Introduction of Remdesivir Anti-infective into Peripheral Vein, Percutaneous Approach, New Technology Group 5 (ICD-10-PCS; principal; 2021-07-05)
DX: U07.1 COVID-19 (principal); J96.01 Acute respiratory failure with hypoxia; J12.82 Pneumonia due to coronavirus disease 2019; E87.1 Hypo-osmolality and hyponatremia; E87.6 Hypokalemia; E66.9 Obesity, unspecified; Z68.29 Body mass index [BMI] 29.0-29.9, adult
CPT/HCPCS: 36415; 71046; 71275; 80048; 80053; 82140; 82550; 82728; 82947; 82962; 83036; 83520; 83615; 83935; 84145; 84484; 85007; 85025; 85027; 85379; 86140; 87040; 93005; 94760; G0378; J0456; J0696; J1100; J1650; J1815; J1940; J7030; J7040; J7050; Q9967; U0003